=== PATIENT | male | born 1945 | race American Indian/Alaskan Native ===

== ENCOUNTER 2017-08-31 21:23 | Inpatient (IN) | payer MEDICARE ==
[2017-08-31] MEDS ORDERED: NACL 0.9% 1000 ML 1,000 ML IV ONE (22:21)
[2017-08-31 22:23] LABS: Basophils # (Auto) 0.1 K/mm3 (0.0-0.1); Basophils % (Auto) 1.2 % (0.0-1.8); Eosinophils # (Auto) 0.1 K/mm3 (0.0-0.4); Eosinophils % (Auto) 1.3 % (0.0-4.3); Hematocrit 38.3 % (35.5-45.6); Hemoglobin 12.6 gm/dl (11.8-15.2); Lymphocytes # (Auto) 0.3 K/mm3 (1.2-5.4); Lymphocytes % (Auto) 4.9 % (13.4-35.0); Mean Corpuscular HGB Conc 33 % (32-34); Mean Corpuscular Hemoglobin 31 pg (28-32); Mean Corpuscular Volume 94 fl (84-94); Monocytes # (Auto) 0.9 K/mm3 (0.0-0.8); Monocytes % (Auto) 14.4 % (0.0-7.3); Platelet Count 241 K/mm3 (140-440); Red Blood Count 4.08 M/mm3 (3.65-5.03); Red Cell Distribution Width 17.3 % (13.2-15.2)
[2017-08-31 23:28] LABS: Bilirubin,Urine NEG (Negative); Blood,Urine NEG (Negative); Color,Urine Yellow (Yellow); Hyaline Casts,Urine 1 /LPF; Mucus,Urine FEW /HPF
--- NOTE | 2017-08-31 23:28 | XRay Report ---
FINAL REPORT EXAM: XR CHEST 1V AP HISTORY: Low blood pressure, cough. Chemotherapy patient. TECHNIQUE: Single AP portable radiograph of the chest was obtained. PRIORS: Radiographs dated 09/05/2016. FINDINGS: FINDINGS: Device: Left sided 3 lead cardiac pacemaker. Heart: Cardiac size is mildly enlarged. Mediastinum/Vessels: Atherosclerotic vascular disease and aortic tortuosity. Lungs/Pleural space: Lungs are hyperinflated. There are no confluent infiltrates or mass lesions. No pleural effusion. Bony thorax: No acute osseous abnormality. Moderate AC joint and thoracic endplate degenerative changes. IMPRESSION: No acute cardiopulmonary event. Mild enlargement of the cardiac silhouette and atherosclerotic vascular disease.
[2017-08-31 23:54] LABS: Albumin 3.2 g/dL (3.9-5); Calcium 9.4 mg/dL (8.4-10.2)
--- NOTE | 2017-09-01 00:26 | Emergency Department Report ---
HPI - General Chief Complaint: Weakness Time Seen by Provider: 08/31/17 22:21 - HPI HPI: 8-year-old male patient of Dr. Tucker for multiple myeloma, patient of Dr. baugh for CHF EF of 15%, presents to ED with leg swelling, shortness of breath , chest discomfort with ambulation. Symptoms have been worsened since this Sunday 4 days ago accompanied by diaphoresis. He is currently getting an injection weekly for his multiple myeloma, he stated he had to get a lower dose this week due to these symptoms. He states that his heart failure has been worse since starting on this new medication. Patient also stated blood pressure has been running low at home, with numbers 70 over 60s. He is currently chest pain-free but is short of breath when laying down. He is totally unable to lay flat. He is at his. AICD, pacemaker placement. ED Past Medical Hx - Past Medical History Previous Medical History?: Yes Hx Hypertension: Yes Hx Heart Attack/AMI: Yes (Pacemaker and Def inplanted 2016) Hx Congestive Heart Failure: Yes (Ef 15% as per pt) Hx Arthritis: Yes (osteo) Hx Kidney Stones: (Kidney disease stage III) Hx HIV: No Additional medical history: Multiple myeloma,weak heart, Kidney disease stage III, Parathryoid removed. - Surgical History Past Surgical History?: Yes Hx Appendectomy: Yes Additional Surgical History: left knee surgery - Social History Smoking Status: Never Smoker - Medications Home Medications: Home Medications Medication Instructions Recorded Confirmed Last Taken Type Acetaminophen [Tylenol Arthritis] 1,300 mg PO Q12H 09/06/16 09/06/16 Unknown History Allopurinol 200 mg PO BID 09/06/16 09/06/16 Unknown History Aspirin 325 mg PO DAILY 09/06/16 09/06/16 Unknown History Carvedilol 12.5 mg PO BID 09/06/16 09/06/16 Unknown History Clopidogrel 75 mg PO DAILY 09/06/16 09/06/16 Unknown History Gabapentin [Neurontin] 800 mg PO BID 09/06/16 09/06/16 Unknown History Losartan 25 mg PO DAILY 09/06/16 09/06/16 Unknown History Terazosin QHS 09/06/16 Unknown History Torsemide 40 mg PO BID 09/06/16 09/06/16 Unknown History Albuterol Sulfate [Ventolin HFA] 2 puff IH Q4H PRN #1 pump 09/07/16 Unknown Rx Benzonatate [Tessalon Perles] 100 mg PO Q8HR #30 capsule 09/07/16 Unknown Rx Oseltamivir [Tamiflu] 75 mg PO BID #10 cap 09/07/16 Unknown Rx Prednisone [predniSONE 5 mg (6-Day 5 mg PO .TAPER #1 tab.ds.pk 09/07/16 Unknown Rx Pack, 21 Tabs)] ED Review of Systems ROS: Stated complaint: LOW BLOOD PRESSURE Other details as noted in HPI Comment: All other systems reviewed and negative Respiratory: orthopnea, shortness of breath, SOB with exertion Cardiovascular: chest pain, dyspnea on exertion, orthopnea Endocrine: denies: intolerance to cold Physical Exam - Physical Exam Vital Signs: Vital Signs 08/31/17 08/31/17 08/31/17 21:28 21:42 23:14 Temperature 97.8 F 97.8 F Pulse Rate 74 74 79 Respiratory 20 20 18 Rate Blood Pressure 87/58 Blood Pressure 87/58 120/84 [Right] O2 Sat by Pulse 97 97 98 Oximetry 08/31/17 23:15 Temperature Pulse Rate Respiratory 18 Rate Blood Pressure Blood Pressure [Right] O2 Sat by Pulse 98 Oximetry Physical Exam: - Physical Exam Physical Exam: - General Limitations: No Limitations General appearance: alert, in no apparent distress, obese - Head Head exam: Present: atraumatic, normocephalic - Eye Eye exam: Present: normal appearance - ENT ENT exam: Present: mucous membranes moist - Neck Neck exam: Present: normal inspection - Respiratory Respiratory exam: Present: Decreased breath sound bilaterally. Absent: respiratory distress - Cardiovascular Cardiovascular Exam: Present: normal rhythm, tachycardia. Absent: systolic murmur, diastolic murmur, rubs, gallop - GI/Abdominal GI/Abdominal exam: Present: soft, normal bowel sounds - Extremities Exam Extremities exam: Present: Bilateral lower extremity swelling for plus edema - Back Exam Back exam: Present: normal inspection - Neurological Exam Neurological exam: Present: alert, oriented X3 - Psychiatric Psychiatric exam: normal affect and mood - Skin Skin exam: Present: warm, dry, intact, normal color. Absent: rash ED Course Vital Signs 08/31/17 08/31/17 08/31/17 21:28 21:42 23:14 Temperature 97.8 F 97.8 F Pulse Rate 74 74 79 Respiratory 20 20 18 Rate Blood Pressure 87/58 Blood Pressure 87/58 120/84 [Right] O2 Sat by Pulse 97 97 98 Oximetry 08/31/17 23:15 Temperature Pulse Rate Respiratory 18 Rate Blood Pressure Blood Pressure [Right] O2 Sat by Pulse 98 Oximetry - Reevaluation(s) Reevaluation #1: 09/01/17 00:25 Patient requiring oxygen, leg swelling severe, severe shortness of breath, borderline blood pressure, will admit for gentle diuresis. ED Medical Decision Making - Lab Data Result diagrams: 08/31/17 22:04 08/31/17 22:04 - Differential Diagnosis differential diagnoses include pneumonia, ME. Critical care attestation.: If time is entered above; I have spent that time in minutes in the direct care of this critically ill patient, excluding procedure time. ED Disposition Clinical Impression: CHF (congestive heart failure), Chronic systolic CHF (congestive heart failure) Disposition: OP ADMIT IP TO THIS HOSP Is pt being admited?: Yes Does the pt Need Aspirin: No Condition: Stable Referrals: SALEEM SANDOVAL MD [Primary Care Provider] - 3-5 Days
[2017-09-01] MEDS ORDERED: PROAIR IH PRN (02:36)
[2017-09-01] MEDS ORDERED: LASIX IV ONE (02:38)
[2017-09-01] MEDS ORDERED: ACETAMINOPHEN 1300 MG PO SCH (02:45)
--- NOTE | 2017-09-01 02:53 | History and Physical Report ---
History of Present Illness Date of examination: 09/01/17 Date of admission: 09/01/17 00:20 Chief complaint: Bilateral leg swelling History of present illness: 71 year old -[place]ian male with past medical history significant for CHF status post AICD, CKD, multiple myeloma on chemotherapy presented to the emergency department complaining of bilateral leg swelling for the last 3 or 4 days. Patient is also complaining pain on the left calf area. Patient has patient dyspnea. Patient is complaining lower back pain for the last 3-4 days, sharp pain 6 out of 10 in intensity with no radiation, no weakness or numbness in the legs. Patient denied chest pain, fever, chills. The patient is admitted to the floor for the management of bilateral leg swelling, CHF, CKD. REVIEW OF SYSTEMS: GENERAL: no weight change, no fatigue, no fever HEAD: no head ache EYES: no blurry vision, no acute visual loss EARS: no hearing loss, no discharge, no earache NOSE: no stuffiness, no sneezing, no discharge MOUTH, THROAT AND NECK: no bleeding gums, no sore throat, no swollen neck CARDIAC: Stated in the HPI. RESPIRATORY: no shortness of breath, no wheeze, no cough, no sputum, no hemoptysis, no asthma GI: no decreased appetite, no nausea, no vomiting, no dysphagia, no diarrhea, no constipation, no abdominal pain URINARY: no change in frequency, no urgency, no polyuria, no hematuria, no incontinence MUSCULOSKELETAL: Pain in the lower back. NEUROLOGIC: no loss of sensation/numbness, no tingling, no tremors, no weakness/ paralysis HEMATOLOGIC: Multiple myeloma. SKIN: no rashes ENDOCRINE: no heat/cold intolerance, no polyuria, no polydipsia, no thyroid problems PSYCHIATRIC: no anxiety, no depression, no suicidal ideations Past History Past Medical History: heart failure, renal failure, other (multiple myeloma) Past Surgical History: appendectomy, Other (parathyroidectomy) Social history: full code. denies: smoking, alcohol abuse, prescription drug abuse, IV drug use Family history: CAD, cancer Medications and Allergies Allergies Allergy/AdvReac Type Severity Reaction Status Date / Time No Known Allergies Allergy Unverified 02/10/16 16:11 Home Medications Medication Instructions Recorded Confirmed Last Taken Type Acetaminophen [Tylenol Arthritis] 1,300 mg PO Q12H 09/06/16 09/06/16 Unknown History Allopurinol 200 mg PO BID 09/06/16 09/06/16 Unknown History Aspirin 325 mg PO DAILY 09/06/16 09/06/16 Unknown History Carvedilol 12.5 mg PO BID 09/06/16 09/06/16 Unknown History Clopidogrel 75 mg PO DAILY 09/06/16 09/06/16 Unknown History Gabapentin [Neurontin] 800 mg PO BID 09/06/16 09/06/16 Unknown History Losartan 25 mg PO DAILY 09/06/16 09/06/16 Unknown History Terazosin QHS 09/06/16 Unknown History Torsemide 40 mg PO BID 09/06/16 09/06/16 Unknown History Albuterol Sulfate [Ventolin HFA] 2 puff IH Q4H PRN #1 pump 09/07/16 Unknown Rx Benzonatate [Tessalon Perles] 100 mg PO Q8HR #30 capsule 09/07/16 Unknown Rx Oseltamivir [Tamiflu] 75 mg PO BID #10 cap 09/07/16 Unknown Rx Prednisone [predniSONE 5 mg (6-Day 5 mg PO .TAPER #1 tab.ds.pk 09/07/16 Unknown Rx Pack, 21 Tabs)] Active Meds: Active Medications Albuterol (Proair) 2 puff IH Q4H PRN PRN Reason: Shortness Of Breath Furosemide (Lasix) 40 mg IV ONCE ONE Stop: 09/01/17 02:39 Gabapentin (Neurontin) 800 mg PO BID SHUKRI Miscellaneous Medication (Acetaminophen [Tylenol Arthritis]) 1,300 mg PO Q12H SHUKRI Miscellaneous Medication (Allopurinol) 200 mg PO BID SHUKRI Miscellaneous Medication (Aspirin) 325 mg PO DAILY SHUKRI Miscellaneous Medication (Carvedilol) 12.5 mg PO BID SHUKRI Miscellaneous Medication (Clopidogrel) 75 mg PO DAILY SHUKRI Oxycodone/Acetaminophen (Percocet 5/325) 2 tab PO Q6H PRN PRN Reason: Pain, Moderate (4-6) Exam - Physical Exam Narrative exam: Not in cardiopulmonary distress. The patient is obese. Vital signs as documented. Head exam is unremarkable. No scleral icterus . Neck is without jugular venous distension, thyromegaly, or carotid bruits. Lungs are clear to auscultation. Cardiac exam reveals regular rate and Rhythm. First and second heart sounds normal. No murmurs, rubs or gallops. Abdominal exam reveals normal bowel sounds, no masses, no organomegaly and no aortic enlargement. Extremities are +2 pedal and pretibial edema. MANAGER SEMICONDUCTOR: Alert and oriented 3. No focal weakness. - Constitutional Vitals: Temp Pulse Resp BP Pulse Ox 100.1 F H 79 16 121/78 98 09/01/17 00:44 09/01/17 02:00 09/01/17 02:00 09/01/17 02:00 09/01/17 02:00 Results - Labs CBC & Chem 7: 08/31/17 22:04 08/31/17 22:04 Labs: Laboratory Last Values WBC 6.3 K/mm3 (4.5-11.0) 08/31/17 22:04 RBC 4.08 M/mm3 (3.65-5.03) 08/31/17 22:04 Hgb 12.6 gm/dl (11.8-15.2) 08/31/17 22:04 Hct 38.3 % (35.5-45.6) 08/31/17 22:04 MCV 94 fl (84-94) 08/31/17 22:04 MCH 31 pg (28-32) 08/31/17 22:04 MCHC 33 % (32-34) 08/31/17 22:04 RDW 17.3 % (13.2-15.2) H 08/31/17 22:04 Plt Count 241 K/mm3 (140-440) 08/31/17 22:04 Lymph % (Auto) 4.9 % (13.4-35.0) L 08/31/17 22:04 [place] % (Auto) 14.4 % (0.0-7.3) H 08/31/17 22:04 Eos % (Auto) 1.3 % (0.0-4.3) 08/31/17 22:04 Baso % (Auto) 1.2 % (0.0-1.8) 08/31/17 22:04 Lymph # 0.3 K/mm3 (1.2-5.4) L 08/31/17 22:04 [place] # 0.9 K/mm3 (0.0-0.8) H 08/31/17 22:04 Eos # 0.1 K/mm3 (0.0-0.4) 08/31/17 22:04 Baso # 0.1 K/mm3 (0.0-0.1) 08/31/17 22:04 Seg Neutrophils % 78.2 % (40.0-70.0) H 08/31/17 22:04 Seg Neutrophils # 4.9 K/mm3 (1.8-7.7) 08/31/17 22:04 Sodium 138 mmol/L (137-145) 08/31/17 22:04 Potassium 5.2 mmol/L (3.6-5.0) H 08/31/17 22:04 Chloride 97.2 mmol/L (98-107) L 08/31/17 22:04 Carbon Dioxide 23 mmol/L (22-30) 08/31/17 22:04 Anion Gap 23 mmol/L 08/31/17 22:04 BUN 52 mg/dL (9-20) H 08/31/17 22:04 Creatinine 2.7 mg/dL (0.8-1.5) H 08/31/17 22:04 Estimated GFR 28 ml/min 08/31/17 22:04 BUN/Creatinine Ratio 19 % 08/31/17 22:04 Glucose 152 mg/dL (75-100) H 08/31/17 22:04 Calcium 9.4 mg/dL (8.4-10.2) 08/31/17 22:04 Total Bilirubin 0.80 mg/dL (0.1-1.2) 08/31/17 22:04 AST 32 units/L (5-40) 08/31/17 22:04 ALT 31 units/L (7-56) 08/31/17 22:04 Alkaline Phosphatase 81 units/L (35-129) 08/31/17 22:04 Troponin T 0.061 ng/mL (0.00-0.029) H 09/01/17 00:10 NT-Pro-B Natriuret Pep 5787 pg/mL (0-900) H 09/01/17 00:10 Total Protein 6.1 g/dL (6.3-8.2) L 08/31/17 22:04 Albumin 3.2 g/dL (3.9-5) L 08/31/17 22:04 Albumin/Globulin Ratio 1.1 % 08/31/17 22:04 Urine Color Yellow (Yellow) 08/31/17 23:00 Urine Turbidity Clear (Clear) 08/31/17 23:00 Urine pH 5.0 (5.0-7.0) 08/31/17 23:00 Ur Specific [place] 1.015 (1.003-1.030) 08/31/17 23:00 Urine Protein 100 mg/dl mg/dL (Negative) 08/31/17 23:00 Urine Glucose (UA) Neg mg/dL (Negative) 08/31/17 23:00 Urine Ketones Neg mg/dL (Negative) 08/31/17 23:00 Urine Blood Neg (Negative) 08/31/17 23:00 Urine Nitrite Neg (Negative) 08/31/17 23:00 Urine Bilirubin Neg (Negative) 08/31/17 23:00 Urine Urobilinogen 2.0 mg/dL (<2.0) 08/31/17 23:00 Ur Leukocyte Esterase Neg (Negative) 08/31/17 23:00 Urine WBC (Auto) 3.0 /HPF (0.0-6.0) 08/31/17 23:00 Urine RBC (Auto) 2.0 /HPF (0.0-6.0) 08/31/17 23:00 U Epithel Cells (Auto) < 1.0 /HPF (0-13.0) 08/31/17 23:00 Hyaline Casts 1 /LPF 08/31/17 23:00 Urine Mucus Few /HPF 08/31/17 23:00 Assessment and Plan Assessment and plan: Acute on chronic CHF exacerbation - Give a dose of Lasix, continue appropriate home medications, cardiology consulted CKD - Nephrology consulted Multiple myeloma, back pain - Oncology consulted Pain on the left calf - Doppler ultrasound of the left leg ordered DVT prophylaxis - Heparin Disposition - Admit to telemetry floor Advance Directives: Yes VTE prophylaxis?: Chemical Plan of care discussed with patient/family: Yes
[2017-09-01] MEDS ORDERED: PROVENTIL IH PRN (03:40)
[2017-09-01 03:53] LABS: Chol/HDL Ratio 3.77 %
--- NOTE | 2017-09-01 09:42 | Consultation ---
History of Present Illness - History of Present Illness Thank you for the consultation patient was evaluated today. Source of information; patient himself old records were also reviewed History of presenting illness; Patient is a 71-year-old -[place] male who is currently established in our clinic for his chronic kidney disease care but patient has not been very compliant. He currently is suffering from relapsed myeloma for which she was also not seeing her oncologist regularly like he should have and upon my request went back to see Dr. Tucker and was noted to have recurrence of myeloma. Patient is currently being followed by Dr. Tucker and is on therapy for multiple myeloma. He also has history of cardiomyopathy severe with ejection fraction of 15% and is followed by [facility] account support specialist Currently he has severe swelling of both lower extremity, and has gained significant weight, he has prior history of ICD placement with severe cardiomyopathy as well patient was also developing worsening shortness of breath as well as leg swelling over the last 2-3 weeks He is a very poor historian and when asked when has he seen John Pennington his primary care physician patient states that he does not recall past medical history significant for Chronic kidney disease stage III Congestive heart failure Cardiomyopathy Noncompliance Parathyroid adenoma Hypercalcemia Multiple myeloma Chronic edema Chronic dietary noncompliance Current allergies: None Social history: Reviewed from the chart Family history: Reviewed from the chart List of medication: Current and outpatient reviewed Review of system: Positive for worsening shortness of breath bilateral worsening edema of both lower extremity Being treated for myeloma All other review of systems negative Labs and x-rays: Were reviewed from the current chart Physical examination General: No acute distress HEENT: Oral mucosa moist no pharyngeal erythema no pallor or icterus no uremic order Neck: Supple no evidence of any thyromegaly trachea midline no JVD Chest: Clear to auscultation no crackles are also wheezes anteriorly Heart: Regular rate and rhythm S1-S2 heard no S3-S4 Abdomen: Soft nontender no renal bruit no CVA tenderness no suprapubic fullness no organomegaly Extremity: 2-3 plus edema dry skin Neurological: Alert awake follows command grossly nonfocal examination Back: Nontender thoracolumbar spine Musculoskeletal: No joint effusion noted Skin: No petechial rash/noted Assessment and plan Renal failure in a patient who is 71-year-old with underlying chronic creatinine was around 2.3 in August 2016 currently 2.7 likely progression of renal failure over time to follow, patient is noncompliant Check urinalysis, urine for protein and creatinine ratio Mild hyperkalemia 5.2 would not give any form of angiotensin receptor bienvenido or CONNIE inhibitor Severe cardiomyopathy with ejection fraction of 15% History of multiple myeloma currently being followed by Dr. Tucker, currently on the medications to oncology hypotension with severe cardiomyopathy: Patient is at risk for progression of renal failure over time, progression of renal failure due to cardiorenal syndrome could be possible patient does need follow- up in the office upon discharge, Status post ICD placement/ severe cardiomyopathy Multiple comorbidities Worsening shortness of breath leg swelling chest discomfort for the last 5-7 days Renal prognosis guarded to poor No evidence to suggest anemia Patient was adequately counseled and educated regarding multiple renal related issues we'll continue to follow and make recommendation from renal standpoint Nature and severity of renal-related issues were discussed with patient, all questions were answered and simple Beninese Patient does have good understanding about renal-related issues, his renal prognosis is guarded to poor due to severe cardiomyopathy as well as myeloma Counseled and educated to get further education from [employer] and related links, and upon discharge to make a follow-up appointment in the office We'll continue to follow and make recommendations from renal standpoint. If you have any questions please feel free to contact me at [phone] Thank you for the consultation. Past History Past Medical History: heart failure, renal failure, other (multiple myeloma) Past Surgical History: appendectomy, Other (parathyroidectomy) Social history: full code. denies: smoking, alcohol abuse, prescription drug abuse, IV drug use Family history: CAD, cancer Medications and Allergies Allergies Allergy/AdvReac Type Severity Reaction Status Date / Time No Known Allergies Allergy Unverified 02/10/16 16:11 Home Medications Medication Instructions Recorded Confirmed Last Taken Type Acetaminophen [Tylenol Arthritis] 1,300 mg PO Q12H 09/06/16 09/01/17 08/30/17 History Allopurinol 200 mg PO DAILY 09/06/16 09/01/17 08/30/17 History Aspirin 325 mg PO DAILY 09/06/16 09/01/17 08/30/17 History Carvedilol 6.25 mg PO BID 09/06/16 09/01/17 08/30/17 History Gabapentin [Neurontin] 800 mg PO BID 09/06/16 09/01/17 08/30/17 History Terazosin 5 mg PO QHS 09/06/16 09/01/17 08/30/17 History Torsemide 40 mg PO QAM 09/06/16 09/01/17 08/30/17 History Albuterol Sulfate [Ventolin HFA] 2 puff IH Q4H PRN #1 pump 09/07/16 09/01/17 Unknown Rx Active Meds: Active Medications Albuterol (Proventil) 2.5 mg IH Q4HRT PRN PRN Reason: Shortness Of Breath Allopurinol (Zyloprim) 200 mg PO BID SHUKRI Aspirin (Aspirin) 325 mg PO QDAY SHUKRI Carvedilol (Coreg) 12.5 mg PO BID SHUKRI Clopidogrel Bisulfate (Plavix) 75 mg PO QDAY SHUKRI Gabapentin (Neurontin) 800 mg PO BID SHUKRI Heparin Sodium (Porcine) (Heparin) 5,000 unit SUB-Q Q12HR SHUKRI Miscellaneous Medication (Acetaminophen [Tylenol Arthritis]) 1,300 mg PO Q12H SHUKRI Oxycodone/Acetaminophen (Percocet 5/325) 2 tab PO Q6H PRN PRN Reason: Pain, Moderate (4-6) Exam - Vital Signs Vital signs: Vital Signs Temp Pulse Resp BP Pulse Ox 97.8 F 74 20 87/58 97 08/31/17 21:28 08/31/17 21:28 08/31/17 21:28 08/31/17 21:28 08/31/17 21:28 Results - Lab Results 08/31/17 22:04 08/31/17 22:04 Most recent lab results Calcium 9.4 mg/dL (8.4-10.2) 08/31/17 22:04
[2017-09-01] MEDS ORDERED: NON-FORMULARY (Carvedilol 12.5 MG) PO SCH (10:00)
[2017-09-01] MEDS ORDERED: NON-FORMULARY (Clopidogrel 75 MG) PO SCH (10:00)
[2017-09-01] MEDS ORDERED: ALLOPURINOL 200 MG PO SCH (10:00)
[2017-09-01] MEDS ORDERED: NON-FORMULARY (Aspirin 325 MG) PO SCH (10:00)
[2017-09-01] MEDS: ZYLOPRIM PO SCH ×2 (14:35→22:36)
[2017-09-01] MEDS: NEURONTIN PO SCH ×2 (14:36→22:36)
[2017-09-01] MEDS: PLAVIX PO SCH (14:36)
[2017-09-01] MEDS: ASPIRIN PO SCH (14:37)
[2017-09-01] MEDS: COREG PO SCH ×2 (14:37→22:37)
[2017-09-01] MEDS: HEPARIN SUB-Q SCH ×2 (14:38→23:00)
[2017-09-01] MEDS: TYLENOL PO SCH ×2 (14:44→22:37)
--- NOTE | 2017-09-01 17:26 | Event Note ---
I was informed by the RN, Fannie about bilateral LE dvt -heparin drip and coumain ordered -VQ scan to exclude PE -hematology and vascular consults placed for extensive dvt
--- NOTE | 2017-09-01 17:57 | Hem/Onc Progress Note ---
Assessment and Plan - Patient Problems (1) Thrombosis Current Visit: Yes Status: Acute Plan to address problem: Agree with transition to warfarin. Outpatient follow up Subjective Date of service: 09/01/17 Interval history: Patient admitted with DVT. Last took Revlimid 5 weeks ago. Objective - Constitutional Vitals: Last Vital Signs Temp 98.9 F 09/01/17 16:35 Pulse 62 09/01/17 16:35 Resp 18 09/01/17 16:35 BP 100/72 09/01/17 16:35 Pulse Ox 99 09/01/17 16:35 Pain Intensity (0-10): denies any pain General appearance: no acute distress - EENT Eyes: PERRL ENT: hearing intact Lymph node exam: negative cervical - Neck Neck: supple - Respiratory Respiratory effort: Positive: normal - Labs Lab Results: Laboratory Results - last 24 hr 08/31/17 08/31/17 08/31/17 22:04 22:04 23:00 WBC 6.3 RBC 4.08 Hgb 12.6 Hct 38.3 MCV 94 MCH 31 MCHC 33 RDW 17.3 H Plt Count 241 Lymph % (Auto) 4.9 L [place] % (Auto) 14.4 H Eos % (Auto) 1.3 Baso % (Auto) 1.2 Lymph # 0.3 L [place] # 0.9 H Eos # 0.1 Baso # 0.1 Seg Neutrophils % 78.2 H Seg Neutrophils # 4.9 Sodium 138 Potassium 5.2 H Chloride 97.2 L Carbon Dioxide 23 Anion Gap 23 BUN 52 H Creatinine 2.7 H Estimated GFR 28 BUN/Creatinine Ratio 19 Glucose 152 H Calcium 9.4 Total Bilirubin 0.80 AST 32 ALT 31 Alkaline Phosphatase 81 Troponin T NT-Pro-B Natriuret Pep Total Protein 6.1 L Albumin 3.2 L Albumin/Globulin Ratio 1.1 Triglycerides Cholesterol LDL Cholesterol Direct HDL Cholesterol Cholesterol/HDL Ratio Urine Color Yellow Urine Turbidity Clear Urine pH 5.0 Ur Specific [place] 1.015 Urine Protein 100 mg/dl Urine Glucose (UA) Neg Urine Ketones Neg Urine Blood Neg Urine Nitrite Neg Urine Bilirubin Neg Urine Urobilinogen 2.0 Ur Leukocyte Esterase Neg Urine WBC (Auto) 3.0 Urine RBC (Auto) 2.0 U Epithel Cells (Auto) < 1.0 Hyaline Casts 1 Urine Mucus Few 09/01/17 00:10 WBC RBC Hgb Hct MCV MCH MCHC RDW Plt Count Lymph % (Auto) [place] % (Auto) Eos % (Auto) Baso % (Auto) Lymph # [place] # Eos # Baso # Seg Neutrophils % Seg Neutrophils # Sodium Potassium Chloride Carbon Dioxide Anion Gap BUN Creatinine Estimated GFR BUN/Creatinine Ratio Glucose Calcium Total Bilirubin AST ALT Alkaline Phosphatase Troponin T 0.061 H NT-Pro-B Natriuret Pep 5787 H Total Protein Albumin Albumin/Globulin Ratio Triglycerides 148 Cholesterol 170 LDL Cholesterol Direct 97 HDL Cholesterol 45 Cholesterol/HDL Ratio 3.77 Urine Color Urine Turbidity Urine pH Ur Specific [place] Urine Protein Urine Glucose (UA) Urine Ketones Urine Blood Urine Nitrite Urine Bilirubin Urine Urobilinogen Ur Leukocyte Esterase Urine WBC (Auto) Urine RBC (Auto) U Epithel Cells (Auto) Hyaline Casts Urine Mucus
[2017-09-01] MEDS: HEPARIN/ 0.45% NACL-25,000 UNIT/500 ML 25,000 UNIT/500 ML BAG IV SCH (18:10)
[2017-09-01 18:18] LABS: INR 1.13 (0.87-1.13)
[2017-09-01 18:25] LABS: Partial Thromboplastin Time 33.9 Sec. (24.2-36.6)
[2017-09-01] MEDS: COUMADIN PO SCH (20:26)
[2017-09-01 22:00] LABS: Calcium 9.1 mg/dL (8.4-10.2)
[2017-09-02] MEDS ORDERED: HEPARIN 10,000 UNITS/10 ML IV ONE (03:11)
[2017-09-02] MEDS: PERCOCET 5/325 PO PRN ×2 (06:34→21:46)
--- NOTE | 2017-09-02 09:23 | XRay Report ---
FINAL REPORT PROCEDURE: XR CHEST 1V AP portable 07:59 a.m. TECHNIQUE: Chest radiograph anteroposterior view. CPT 87863 HISTORY: for lung scan cough low blood pressure chest pain fever wheezing COMPARISON: 08/31/2017 FINDINGS: The heart is mildly enlarged and stable. Possible hilar adenopathy with nodular fullness in the AP window. Suspect COPD with no joe airspace process or effusion. Cardiac pacer device left upper chest with leads in the right atrium and ostensibly right ventricle. Lower heart border excluded from the study IMPRESSION: Shallow inspiration with suspected COPD cardiomegaly pacer device and without joe airspace process or effusion on limited frontal view.
[2017-09-02 09:25] LABS: Basophils # (Auto) 0.1 K/mm3 (0.0-0.1); Basophils % (Auto) 1.7 % (0.0-1.8); Eosinophils # (Auto) 0.1 K/mm3 (0.0-0.4); Eosinophils % (Auto) 2.6 % (0.0-4.3); Hematocrit 35.1 % (35.5-45.6); Hemoglobin 11.4 gm/dl (11.8-15.2); Lymphocytes # (Auto) 0.5 K/mm3 (1.2-5.4); Lymphocytes % (Auto) 8.2 % (13.4-35.0); Mean Corpuscular HGB Conc 32 % (32-34); Mean Corpuscular Hemoglobin 30 pg (28-32); Mean Corpuscular Volume 93 fl (84-94); Monocytes # (Auto) 0.8 K/mm3 (0.0-0.8); Monocytes % (Auto) 13.9 % (0.0-7.3); Platelet Count 289 K/mm3 (140-440); Red Blood Count 3.76 M/mm3 (3.65-5.03); Red Cell Distribution Width 17.1 % (13.2-15.2)
[2017-09-02 09:36] LABS: INR 1.21 (0.87-1.13)
[2017-09-02 09:40] LABS: Calcium 9.2 mg/dL (8.4-10.2)
--- NOTE | 2017-09-02 10:16 | Progress Note ---
Subjective Interval history: Patient was seen today for follow-up on multiple renal related issues, he is still continues to have bilateral swelling of both lower extremity worried about his renal function which has been progressively declining Patient has no complaints of any chest pain pressure but does complain of mild shortness of breath which is not new Vitals labs intake output medications were reviewed Social history: Reviewed Allergies: Reviewed Family history: Reviewed Physical examination HEENT: Oral mucosa moist no pallor or icterus Neck: Supple no JVD Chest: Clear to auscultation anteriorly CVS: Regular rate and rhythm S1 and S2 heard Abdomen: Soft nontender no suprapubic masses no organomegaly appreciable Extremity: Dry skin less than 2-3+ peripheral edema, with tenderness in the leg Musculoskeletal: No joint effusion noted in knees and ankle Neurological: Alert awake Dermatology: No petechial rashes Psychiatry: No evidence of any agitation and aggression noted Assessment and plan Chronic kidney disease: Progressing/worsening etiology appears to be multi- factorial in his case Congestive heart failure: Severe cardiomyopathy known to cardiorenal syndrome and progressive decline in renal function Bilateral lower expected DVT currently being followed by vascular hematology oncology Myeloma: Relapsed patient did not follow-up with oncology like he should have, and made an appointment with Dr. Tucker only after I requested him to be seen, he is aware that his overall prognosis is guarded at this time was treated with Revlimid as well as Velcade in outpatient setting I believe some of the decline in renal function is also resulting from myeloma relapsing, and the treatment would be to treat the myeloma Severe cardiomyopathy being [facility] not a candidate for CONNIE inhibitors angiotensin receptor bienvenido with worsening renal function Noncompliant patient: Patient's long-term prognosis is guarded to poor high risk for progression of renal failure over time patient is aware Renal care plan was discussed with patient he will need a 24-hour urinary study Patient was adequately counseled and educated regarding multiple renal related issues Pertinent lab findings were discussed with patient, patient does exhibit good understanding of renal issues We'll continue to follow and make recommendation from renal standpoint Objective - Vital Signs Vital signs: Vital Signs - 12hr 09/01/17 09/02/17 09/02/17 22:00 00:10 00:34 Temperature 98.2 F Pulse Rate 67 63 Respiratory 16 18 Rate Blood Pressure 86/55 Blood Pressure 86/55 [Right] O2 Sat by Pulse 97 95 Oximetry 0309/02/17 09/02/17 01:00 03:55 04:51 Temperature 97.6 F Pulse Rate 79 73 72 Respiratory 18 Rate Blood Pressure 106/73 Blood Pressure 106/73 [Right] O2 Sat by Pulse 95 97 Oximetry 09/02/17 09/02/17 08:10 08:11 Temperature 98.7 F Pulse Rate 74 75 Respiratory 18 Rate Blood Pressure 109/74 Blood Pressure [Right] O2 Sat by Pulse 95 90 Oximetry - Lab 09/03/17 04:24 09/02/17 09:09 Most recent lab results Calcium 9.2 mg/dL (8.4-10.2) 09/02/17 09:09
--- NOTE | 2017-09-02 10:44 | Consultation ---
History of Present Illness - Reason for Consult Consult date: 09/02/17 BLE DVT - History of Present Illness Patient with a history of CHF with an ejection fraction of 15% who presented with hypotension. He was found to have bilateral lower extremity DVTs. Patient had a prior episode of DVT on the right in 2007 and he believes that a IVC filter was placed at that time. At that time, the patient was on Coumadin for "1-2 years" and this was discontinued some time ago. His legs are swollen although soft. Past History Past Medical History: DVT, heart failure, renal failure, other (multiple myeloma ) Past Surgical History: appendectomy, Other (parathyroidectomy) Social history: full code. denies: smoking, alcohol abuse, prescription drug abuse, IV drug use Family history: CAD, cancer Medications and Allergies Allergies Allergy/AdvReac Type Severity Reaction Status Date / Time No Known Allergies Allergy Unverified 02/10/16 16:11 Home Medications Medication Instructions Recorded Confirmed Last Taken Type Acetaminophen [Tylenol Arthritis] 1,300 mg PO Q12H 09/06/16 09/02/17 08/30/17 History Allopurinol 200 mg PO DAILY 09/06/16 09/02/17 08/30/17 History Aspirin 325 mg PO DAILY 09/06/16 09/02/17 08/30/17 History Carvedilol 6.25 mg PO BID 09/06/16 09/02/17 08/30/17 History Gabapentin [Neurontin] 800 mg PO BID 09/06/16 09/02/17 08/30/17 History Terazosin 5 mg PO QHS 09/06/16 09/02/17 08/30/17 History Torsemide 40 mg PO QAM 09/06/16 09/02/17 08/30/17 History Albuterol Sulfate [Ventolin HFA] 2 puff IH Q4H PRN #1 pump 09/07/16 09/02/17 Unknown Rx Active Meds: Active Medications Acetaminophen (Tylenol) 1,000 mg PO BID [facility] Last Admin: 09/01/17 22:37 Dose: 1,000 mg Albuterol (Proventil) 2.5 mg IH Q4HRT PRN PRN Reason: Shortness Of Breath Allopurinol (Zyloprim) 200 mg PO BID [facility] Last Admin: 09/01/17 22:36 Dose: 200 mg Aspirin (Aspirin) 325 mg PO QDAY [facility] Last Admin: 09/01/17 14:37 Dose: 325 mg Carvedilol (Coreg) 12.5 mg PO BID [facility] Last Admin: 09/01/17 22:37 Dose: 12.5 mg Clopidogrel Bisulfate (Plavix) 75 mg PO QDAY [facility] Last Admin: 09/01/17 14:36 Dose: 75 mg Gabapentin (Neurontin) 800 mg PO BID [facility] Last Admin: 09/01/17 22:36 Dose: 800 mg Heparin Sodium/Sodium Chloride (Heparin/ 0.45% Nacl-25,000 Unit/500 Ml) 25,000 unit in 500 mls @ 30 mls/hr IV TITR [facility]; Protocol Last Titration: 09/02/17 03:10 Dose: 1,850 units/hr, 37 mls/hr Oxycodone/Acetaminophen (Percocet 5/325) 2 tab PO Q6H PRN PRN Reason: Pain, Moderate (4-6) Last Admin: 09/02/17 06:34 Dose: 2 tab Warfarin Sodium (Coumadin) 7.5 mg PO DAILY@1700 [facility] Last Admin: 09/01/17 20:26 Dose: 7.5 mg Review of Systems All systems: negative Exam - Constitutional Vitals: Temp Pulse Resp BP Pulse Ox 98.7 F 75 18 109/74 90 09/02/17 08:10 09/02/17 08:11 09/02/17 08:10 09/02/17 08:10 09/02/17 08:11 General appearance: Present: no acute distress, obese - EENT Eyes: Present: PERRL ENT: hearing intact - Neck Neck: Present: supple, normal ROM - Respiratory Respiratory effort: normal - Extremities Extremities: no ischemia Extremity abnormal: edema - Abdominal General gastrointestinal: Present: deferred Male genitourinary: Present: deferred - Rectal Rectal Exam: deferred - Psychiatric Psychiatric: appropriate mood/affect, cooperative - Neurologic Neurologic: no focal deficits Results - Labs CBC & Chem 7: 09/02/17 09:09 09/02/17 09:09 Labs: Abnormal lab results 09/01/17 09/01/17 09/02/17 Range/Units 17:43 21:24 00:18 Hgb (11.8-15.2) gm/dl Hct (35.5-45.6) % RDW (13.2-15.2) % Lymph % (Auto) (13.4-35.0) % [place] % (Auto) (0.0-7.3) % Lymph # (1.2-5.4) K/mm3 Seg Neutrophils % (40.0-70.0) % PT 15.1 H (12.2-14.9) Sec. INR (0.87-1.13) Heparin Anti-Xa Level < 0.10 L (0.3-0.7) U.I./ml Sodium 134 L (137-145) mmol/L Chloride 94.5 L (98-107) mmol/L BUN 52 H (9-20) mg/dL Creatinine 2.7 H (0.8-1.5) mg/dL Glucose 137 H (75-100) mg/dL 09/02/17 09/02/17 09/02/17 Range/Units 09:09 09:09 09:09 Hgb 11.4 L (11.8-15.2) gm/dl Hct 35.1 L (35.5-45.6) % RDW 17.1 H (13.2-15.2) % Lymph % (Auto) 8.2 L (13.4-35.0) % [place] % (Auto) 13.9 H (0.0-7.3) % Lymph # 0.5 L (1.2-5.4) K/mm3 Seg Neutrophils % 73.6 H (40.0-70.0) % PT 16.0 H (12.2-14.9) Sec. INR 1.21 H (0.87-1.13) Heparin Anti-Xa Level (0.3-0.7) U.I./ml Sodium 134 L (137-145) mmol/L Chloride 96.4 L (98-107) mmol/L BUN 54 H (9-20) mg/dL Creatinine 2.8 H (0.8-1.5) mg/dL Glucose 134 H (75-100) mg/dL - Imaging and Cardiology Venous US: report reviewed Assessment and Plan Patient with history of bilateral lower extremity DVT. Will obtain an abdominal ultrasound to determine if the patient has a IVC filter. Would continue anticoagulation for life. Patient will be placed in LORENE hose as well.
[2017-09-02] MEDS: TYLENOL PO SCH ×2 (10:55→21:48)
[2017-09-02] MEDS: PLAVIX PO SCH (10:55)
[2017-09-02] MEDS: ASPIRIN PO SCH (10:55)
[2017-09-02] MEDS: COREG PO SCH ×2 (10:55→21:47)
[2017-09-02] MEDS: ZYLOPRIM PO SCH ×2 (10:55→21:46)
[2017-09-02] MEDS: NEURONTIN PO SCH ×2 (10:55→21:46)
[2017-09-02] MEDS: HEPARIN/ 0.45% NACL-25,000 UNIT/500 ML 25,000 UNIT/500 ML BAG IV SCH (11:15)
--- NOTE | 2017-09-02 11:24 | XRay Report ---
AP ABDOMEN: HISTORY: Bilateral lower extremity DVT, evaluate for presence of IVC filter. The abdominal gas pattern is unremarkable. No masses or organomegaly is identified and there is no gross evidence of free air or fluid. No significant soft tissue calcifications are noted. An IVC filter is identified at the L2-3 level. IMPRESSION: Unremarkable abdomen. IVC filter as described.
--- NOTE | 2017-09-02 12:29 | Nuclear Medicine Report ---
LUNG SCAN, VENTILATION AND PERFUSION: History: Shortness of breath, DVT. Technique: 5mci of Tc99m MAA was infused for the perfusion images. 15mci XE 133 gas was inhaled for the ventilatory images. Correlation is made with a chest x-ray dated 09/02/17. Findings: Inhalation of Xenon gas demonstrates a normal distribution of the activity throughout both lungs. The wash out phases show no focal retention of activity. After injection of Technetium 99m macroaggregated albumin gamma camera imaging of the lungs in multiple projections demonstrates normal pulmonary contours with a homogeneous distribution of activity. No focal areas of perfusion deficiency are identified. IMPRESSION: Low probability for pulmonary embolus.
--- NOTE | 2017-09-02 13:02 | Cat Scan Report ---
CT CHEST WITHOUT CONTRAST: HISTORY: Shortness of breath, bilateral DVT, concern for malignancy. COMPARISON: none. TECHNIQUE: Helical CT in 1.25mm intervals without IV contrast. Sagittal and coronal reformatted images. FINDINGS: Thyroid gland: Normal. Tracheobronchial tree: Normal. Esophagus: Normal. Heart: Within normal limits. 2-lead cardiac pacemaker is in place. Pericardium: Normal. Mediastinum: Normal. Lung [place]: Normal. Pleural Spaces: Normal. Musculoskeletal: Normal. IMPRESSION: Unremarkable CT chest without contrast. No evidence for an acute process or neoplasm/metastatic disease.
--- NOTE | 2017-09-02 13:14 | Cat Scan Report ---
CT ABDOMEN PELVIS WITHOUT CONTRAST: HISTORY: Concern for malignancy, shortness of breath, bilateral DVT. COMPARISON: none. TECHNIQUE: Helical CT in 1.25mm intervals without IV contrast. Sagittal and coronal reconstructions. FINDINGS: Lung bases: Normal. Liver: Normal. Biliary system: Normal. Pancreas: Normal. Spleen: Normal. Kidneys/ureters/bladder: 3 cm cyst at the superior pole the right kidney is noted. No evidence for nephrolithiasis or obvious mass. The ureters are normal course and caliber. The bladder is partially empty with no gross abnormality. The prostate gland is mildly enlarged measuring 5.5 cm in diameter. Adrenal glands: Both adrenal glands are mildly thickened without discrete nodule. This may represent hyperplasia. Aorta: Normal. An IVC filter is in place at the L2-3 level. No obvious venous thrombosis in the visualized pelvic veins and IVC. Intestines: No oral contrast was administered which limits this exam. Diffuse diverticulosis of the colon is evident. There is no evidence for obstruction, focal inflammation or large mass. Appendix: Not confidently identified. Pelvic viscera: Normal. Ascites: There is trace ascites in both sides of the pelvis. No abscess. Adenopathy: None. Musculoskeletal: Within normal limits. Mild degenerative changes are noted. IMPRESSION: No evidence for metastatic disease or neoplastic process on noncontrast CT. Diffuse diverticulosis of the colon. Trace ascites. Mild prostatic enlargement. Right renal cyst.
--- NOTE | 2017-09-02 15:58 | Progress Note ---
Assessment and Plan Assessment and plan: 71 year old -[place] male with past medical history significant for CHF status post AICD, CKD, multiple myeloma on chemotherapy presented to the emergency department complaining of bilateral leg swelling for the last 3 or 4 days. he has previous hx of DVT in past and claims ivc filter was placed years ago Bilateral LE DVT -continue heparin drip and warfarin -will discuss the best choice of anticoagulant with hematology given malignancy and CKD -VQ svan negative, vascular surgery input appreciated, will check for IVC filter by US -will need lifelong anticoagulation Acute on chronic CHF exacerbation -currently appears euvolemic, received diuresis already CKD - Nephrology consulted, creatinine stable Multiple myeloma, and Prostate ca - Oncology consulted -on outpatient chemo CT chest, abdomen and pelvis does not reveal any other masses History Interval history: C/o BIlateral LE edema which is painful #Review of systems Constitutional: No fevers, no malaise, no joint pains CVS: No chest pain, no orthopnea, no dyspnea on exertion, no pedal edema GI: No abdominal pain, no diarrhea, no vomiting, no constipation Respiratory: No shortness of breath, no wheezing, no coughing Hospitalist Physical - Physical exam Narrative exam: General.: Appears well, no distress, nontoxic HEENT: Moist mucous membranes, extraocular muscles intact, no lymphadenopathy Neck: supple Cardiac: S1-S2 heard Lungs: clear to auscultation bilaterally Abdomen: soft , nontender, nondistended, bowel sounds positive Extremities: 3 plus bilateral LE edema Skin: no rash or lesions Neurologic: no gross focal deficits Psych: appropriate behavior, appropriate mood, corporative, judgment intact - Constitutional Vitals: Temp Pulse Resp BP Pulse Ox 98.7 F 75 18 109/74 90 09/02/17 08:10 09/02/17 08:11 09/02/17 08:10 09/02/17 08:10 09/02/17 08:11 General appearance: Present: no acute distress, obese Results - Labs CBC & Chem 7: 09/02/17 09:09 09/02/17 09:09 Labs: Laboratory Last Values WBC 5.5 K/mm3 (4.5-11.0) 09/02/17 09:09 RBC 3.76 M/mm3 (3.65-5.03) 09/02/17 09:09 Hgb 11.4 gm/dl (11.8-15.2) L 09/02/17 09:09 Hct 35.1 % (35.5-45.6) L 09/02/17 09:09 MCV 93 fl (84-94) 09/02/17 09:09 MCH 30 pg (28-32) 09/02/17 09:09 MCHC 32 % (32-34) 09/02/17 09:09 RDW 17.1 % (13.2-15.2) H 09/02/17 09:09 Plt Count 289 K/mm3 (140-440) 09/02/17 09:09 Lymph % (Auto) 8.2 % (13.4-35.0) L 09/02/17 09:09 [place] % (Auto) 13.9 % (0.0-7.3) H 09/02/17 09:09 Eos % (Auto) 2.6 % (0.0-4.3) 09/02/17 09:09 Baso % (Auto) 1.7 % (0.0-1.8) 09/02/17 09:09 Lymph # 0.5 K/mm3 (1.2-5.4) L 09/02/17 09:09 [place] # 0.8 K/mm3 (0.0-0.8) 09/02/17 09:09 Eos # 0.1 K/mm3 (0.0-0.4) 09/02/17 09:09 Baso # 0.1 K/mm3 (0.0-0.1) 09/02/17 09:09 Seg Neutrophils % 73.6 % (40.0-70.0) H 09/02/17 09:09 Seg Neutrophils # 4.1 K/mm3 (1.8-7.7) 09/02/17 09:09 PT 16.0 Sec. (12.2-14.9) H 09/02/17 09:09 INR 1.21 (0.87-1.13) H 09/02/17 09:09 APTT 33.9 Sec. (24.2-36.6) 09/01/17 17:43 Heparin Anti-Xa Level 0.60 U.I./ml (0.3-0.7) 09/02/17 09:09 Sodium 134 mmol/L (137-145) L 09/02/17 09:09 Potassium 4.7 mmol/L (3.6-5.0) 09/02/17 09:09 Chloride 96.4 mmol/L (98-107) L 09/02/17 09:09 Carbon Dioxide 25 mmol/L (22-30) 09/02/17 09:09 Anion Gap 17 mmol/L 09/02/17 09:09 BUN 54 mg/dL (9-20) H 09/02/17 09:09 Creatinine 2.8 mg/dL (0.8-1.5) H 09/02/17 09:09 Estimated GFR 27 ml/min 09/02/17 09:09 BUN/Creatinine Ratio 19 % 09/02/17 09:09 Glucose 134 mg/dL (75-100) H 09/02/17 09:09 Calcium 9.2 mg/dL (8.4-10.2) 09/02/17 09:09 Total Bilirubin 0.80 mg/dL (0.1-1.2) 08/31/17 22:04 AST 32 units/L (5-40) 08/31/17 22:04 ALT 31 units/L (7-56) 08/31/17 22:04 Alkaline Phosphatase 81 units/L (35-129) 08/31/17 22:04 Troponin T 0.061 ng/mL (0.00-0.029) H 09/01/17 00:10 NT-Pro-B Natriuret Pep 5787 pg/mL (0-900) H 09/01/17 00:10 Total Protein 6.1 g/dL (6.3-8.2) L 08/31/17 22:04 Albumin 3.2 g/dL (3.9-5) L 08/31/17 22:04 Albumin/Globulin Ratio 1.1 % 08/31/17 22:04 Triglycerides 148 mg/dL (2-149) 09/01/17 00:10 Cholesterol 170 mg/dL (50-199) 09/01/17 00:10 LDL Cholesterol Direct 97 mg/dL (50-130) 09/01/17 00:10 HDL Cholesterol 45 mg/dL (40-59) 09/01/17 00:10 Cholesterol/HDL Ratio 3.77 % 09/01/17 00:10 Urine Color Yellow (Yellow) 08/31/17 23:00 Urine Turbidity Clear (Clear) 08/31/17 23:00 Urine pH 5.0 (5.0-7.0) 08/31/17 23:00 Ur Specific [place] 1.015 (1.003-1.030) 08/31/17 23:00 Urine Protein 100 mg/dl mg/dL (Negative) 08/31/17 23:00 Urine Glucose (UA) Neg mg/dL (Negative) 08/31/17 23:00 Urine Ketones Neg mg/dL (Negative) 08/31/17 23:00 Urine Blood Neg (Negative) 08/31/17 23:00 Urine Nitrite Neg (Negative) 08/31/17 23:00 Urine Bilirubin Neg (Negative) 08/31/17 23:00 Urine Urobilinogen 2.0 mg/dL (<2.0) 08/31/17 23:00 Ur Leukocyte Esterase Neg (Negative) 08/31/17 23:00 Urine WBC (Auto) 3.0 /HPF (0.0-6.0) 08/31/17 23:00 Urine RBC (Auto) 2.0 /HPF (0.0-6.0) 08/31/17 23:00 U Epithel Cells (Auto) < 1.0 /HPF (0-13.0) 08/31/17 23:00 Hyaline Casts 1 /LPF 08/31/17 23:00 Urine Mucus Few /HPF 08/31/17 23:00
[2017-09-02] MEDS: COUMADIN PO SCH (17:46)
--- NOTE | 2017-09-02 19:41 | Progress Note ---
Assessment and Plan patient was admitted with bilateral leg swelling and was diagnosed have bilateral deep vein thrombosis, lung scan showed low property per pulmonary embolism. Presently on heparin, being changed to warfarin. Patient has history of DVT in 2007, percent of IVC filter insertion. Continue present treatment. history of multiple myeloma, on treatment with Dr. Tucker. - Patient Problems (1) Chronic systolic CHF (congestive heart failure) Current Visit: Yes Status: Chronic (2) Hypertension Current Visit: No Status: Acute (3) CKD (chronic kidney disease) stage 3, GFR 30-59 ml/min Current Visit: No Status: Chronic Subjective Date of service: 09/02/17 Interval history: patient admitted with bilateral leg swelling, apparently started after giving chemotherapy. Evaluation showed bilateral lower extremity deep vein thrombosis. Objective Vital Signs Temp Pulse Resp BP BP Pulse Ox 09/02/17 08:11 75 90 09/02/17 08:10 98.7 F 74 18 109/74 95 09/02/17 04:51 97.6 F 72 18 106/73 97 09/02/17 03:55 73 106/73 95 09/02/17 01:00 79 09/02/17 00:34 98.2 F 63 18 86/55 95 09/02/17 00:10 67 86/55 97 09/01/17 22:00 16 09/01/17 20:30 98.9 F 71 97 H 116/78 97 09/01/17 20:15 73 116/78 95 - Physical Examination General: No Apparent Distress HEENT: Positive: PERRL Neck: Positive: trachea midline Cardiac: Positive: Reg Rate and Rhythm Lungs: Positive: Decreased Breath Sounds Neuro: Positive: Grossly Intact Abdomen: Positive: Unremarkable Extremities: Present: +3 Edema - Labs and Meds Coagulation 09/02/17 Range/Units 09:09 PT 16.0 H (12.2-14.9) Sec. INR 1.21 H (0.87-1.13) CBC 09/02/17 Range/Units 09:09 WBC 5.5 (4.5-11.0) K/mm3 RBC 3.76 (3.65-5.03) M/mm3 Hgb 11.4 L (11.8-15.2) gm/dl Hct 35.1 L (35.5-45.6) % Plt Count 289 (140-440) K/mm3 Lymph # 0.5 L (1.2-5.4) K/mm3 [place] # 0.8 (0.0-0.8) K/mm3 Eos # 0.1 (0.0-0.4) K/mm3 Baso # 0.1 (0.0-0.1) K/mm3 Comprehensive Metabolic Panel 09/01/17 09/02/17 Range/Units 21:24 09:09 Sodium 134 L 134 L (137-145) mmol/L Potassium 4.6 4.7 (3.6-5.0) mmol/L Chloride 94.5 L 96.4 L (98-107) mmol/L Carbon Dioxide 24 25 (22-30) mmol/L BUN 52 H 54 H (9-20) mg/dL Creatinine 2.7 H 2.8 H (0.8-1.5) mg/dL Glucose 137 H 134 H (75-100) mg/dL Calcium 9.1 9.2 (8.4-10.2) mg/dL
[2017-09-02] MEDS: MINIPRESS PO SCH (21:48)
[2017-09-02] MEDS ORDERED: NON-FORMULARY (Terazosin 5 MG) PO SCH (22:00)
[2017-09-03] MEDS: HEPARIN/ 0.45% NACL-25,000 UNIT/500 ML 25,000 UNIT/500 ML BAG IV SCH ×3 (03:34→20:51)
[2017-09-03 05:55] LABS: Hematocrit 33.9 % (35.5-45.6); Hemoglobin 11.3 gm/dl (11.8-15.2)
[2017-09-03 05:59] LABS: INR 1.2 (0.87-1.13)
[2017-09-03 06:01] LABS: Heparin anti-factor XA 0.18 U.I./ml (0.3-0.7)
--- NOTE | 2017-09-03 07:19 | Progress Note ---
Hospitalist Physical - Constitutional Vitals: Temp Pulse Resp BP Pulse Ox 98.0 F 47 L 18 109/74 95 09/03/17 03:46 09/03/17 03:46 09/03/17 03:46 09/03/17 03:46 09/03/17 03:46 General appearance: Present: no acute distress, obese Results - Labs CBC & Chem 7: 09/03/17 04:24 09/02/17 09:09 Labs: Laboratory Last Values WBC 5.5 K/mm3 (4.5-11.0) 09/02/17 09:09 RBC 3.76 M/mm3 (3.65-5.03) 09/02/17 09:09 Hgb 11.3 gm/dl (11.8-15.2) L 09/03/17 04:24 Hct 33.9 % (35.5-45.6) L 09/03/17 04:24 MCV 93 fl (84-94) 09/02/17 09:09 MCH 30 pg (28-32) 09/02/17 09:09 MCHC 32 % (32-34) 09/02/17 09:09 RDW 17.1 % (13.2-15.2) H 09/02/17 09:09 Plt Count 298 K/mm3 (140-440) 09/03/17 04:24 Lymph % (Auto) 8.2 % (13.4-35.0) L 09/02/17 09:09 [place] % (Auto) 13.9 % (0.0-7.3) H 09/02/17 09:09 Eos % (Auto) 2.6 % (0.0-4.3) 09/02/17 09:09 Baso % (Auto) 1.7 % (0.0-1.8) 09/02/17 09:09 Lymph # 0.5 K/mm3 (1.2-5.4) L 09/02/17 09:09 [place] # 0.8 K/mm3 (0.0-0.8) 09/02/17 09:09 Eos # 0.1 K/mm3 (0.0-0.4) 09/02/17 09:09 Baso # 0.1 K/mm3 (0.0-0.1) 03/11/18 09:09 Seg Neutrophils % 73.6 % (40.0-70.0) H 09/02/17 09:09 Seg Neutrophils # 4.1 K/mm3 (1.8-7.7) 09/02/17 09:09 PT 15.9 Sec. (12.2-14.9) H 09/03/17 04:28 INR 1.20 (0.87-1.13) H 09/03/17 04:28 APTT 33.9 Sec. (24.2-36.6) 09/01/17 17:43 Heparin Anti-Xa Level 0.18 U.I./ml (0.3-0.7) L 09/03/17 04:28 Sodium 134 mmol/L (137-145) L 09/02/17 09:09 Potassium 4.7 mmol/L (3.6-5.0) 09/02/17 09:09 Chloride 96.4 mmol/L (98-107) L 09/02/17 09:09 Carbon Dioxide 25 mmol/L (22-30) 09/02/17 09:09 Anion Gap 17 mmol/L 09/02/17 09:09 BUN 54 mg/dL (9-20) H 09/02/17 09:09 Creatinine 2.8 mg/dL (0.8-1.5) H 09/02/17 09:09 Estimated GFR 27 ml/min 09/02/17 09:09 BUN/Creatinine Ratio 19 % 09/02/17 09:09 Glucose 134 mg/dL (75-100) H 09/02/17 09:09 Calcium 9.2 mg/dL (8.4-10.2) 09/02/17 09:09 Total Bilirubin 0.80 mg/dL (0.1-1.2) 08/31/17 22:04 AST 32 units/L (5-40) 08/31/17 22:04 ALT 31 units/L (7-56) 08/31/17 22:04 Alkaline Phosphatase 81 units/L (35-129) 08/31/17 22:04 Troponin T 0.061 ng/mL (0.00-0.029) H 09/01/17 00:10 NT-Pro-B Natriuret Pep 5787 pg/mL (0-900) H 09/01/17 00:10 Total Protein 6.1 g/dL (6.3-8.2) L 08/31/17 22:04 Albumin 3.2 g/dL (3.9-5) L 08/31/17 22:04 Albumin/Globulin Ratio 1.1 % 08/31/17 22:04 Triglycerides 148 mg/dL (2-149) 09/01/17 00:10 Cholesterol 170 mg/dL (50-199) 09/01/17 00:10 LDL Cholesterol Direct 97 mg/dL (50-130) 09/01/17 00:10 HDL Cholesterol 45 mg/dL (40-59) 09/01/17 00:10 Cholesterol/HDL Ratio 3.77 % 09/01/17 00:10 Urine Color Yellow (Yellow) 08/31/17 23:00 Urine Turbidity Clear (Clear) 08/31/17 23:00 Urine pH 5.0 (5.0-7.0) 08/31/17 23:00 Ur Specific [place] 1.015 (1.003-1.030) 08/31/17 23:00 Urine Protein 100 mg/dl mg/dL (Negative) 08/31/17 23:00 Urine Glucose (UA) Neg mg/dL (Negative) 08/31/17 23:00 Urine Ketones Neg mg/dL (Negative) 08/31/17 23:00 Urine Blood Neg (Negative) 08/31/17 23:00 Urine Nitrite Neg (Negative) 08/31/17 23:00 Urine Bilirubin Neg (Negative) 08/31/17 23:00 Urine Urobilinogen 2.0 mg/dL (<2.0) 08/31/17 23:00 Ur Leukocyte Esterase Neg (Negative) 08/31/17 23:00 Urine WBC (Auto) 3.0 /HPF (0.0-6.0) 08/31/17 23:00 Urine RBC (Auto) 2.0 /HPF (0.0-6.0) 08/31/17 23:00 U Epithel Cells (Auto) < 1.0 /HPF (0-13.0) 08/31/17 23:00 Hyaline Casts 1 /LPF 08/31/17 23:00 Urine Mucus Few /HPF 08/31/17 23:00
--- NOTE | 2017-09-03 09:33 | Hem/Onc Progress Note ---
Assessment and Plan Continue heparin and Coumadin until INR therapeutic. We will order abdominal x- ray to see the location of IVC filter. The IVC seems to be patent although good bit of abdominal gas me preclude best exam Subjective Date of service: 09/03/17 Interval history: Patient admitted with DVTs. History of DVT in the past. Currently on therapy for multiple myeloma in the form of Revlimid and Velcade and dexamethasone. Now on heparin and Coumadin Objective - Constitutional Vitals: Last Vital Signs Temp 97.8 F 09/03/17 08:24 Pulse 76 09/03/17 08:24 Resp 20 09/03/17 08:24 BP 112/66 09/03/17 08:24 Pulse Ox 98 09/03/17 08:24 General appearance: mild distress Performance status: 4-completely disabled - Neck Neck: supple - Respiratory Respiratory effort: Positive: normal Respiratory: bilateral: diminished - Cardiovascular Rhythm: regular Extremity abnormal: edema (bi lateral) - Gastrointestinal General gastrointestinal: Present: soft - Labs Lab Results: Laboratory Results - last 24 hr 09/02/17 09/02/17 09/02/17 09:09 09:09 09:09 Hgb Hct Plt Count PT 16.0 H INR 1.21 H Heparin Anti-Xa Level 0.60 Sodium 134 L Potassium 4.7 Chloride 96.4 L Carbon Dioxide 25 Anion Gap 17 BUN 54 H Creatinine 2.8 H Estimated GFR 27 BUN/Creatinine Ratio 19 Glucose 134 H Calcium 9.2 09/02/17 09/03/17 09/03/17 15:49 04:24 04:28 Hgb 11.3 L Hct 33.9 L Plt Count 298 PT 15.9 H INR 1.20 H Heparin Anti-Xa Level 0.37 0.18 L Sodium Potassium Chloride Carbon Dioxide Anion Gap BUN Creatinine Estimated GFR BUN/Creatinine Ratio Glucose Calcium
--- NOTE | 2017-09-03 10:18 | Progress Note ---
Subjective Interval history: Patient was seen today for follow-up on multiple renal related issues Events of this hospitalization noted Still continues to have swelling both lower extremities Patient denies having any chest pain pressure or shortness of breath Vitals labs intake output medications were reviewed Social history: Reviewed Allergies: Reviewed Family history: Reviewed Physical examination HEENT: Oral mucosa moist no pallor or icterus Neck: Supple no JVD Chest: Clear to auscultation anteriorly CVS: Regular rate and rhythm S1 and S2 heard Abdomen: Soft nontender no suprapubic masses no organomegaly appreciable Extremity: Dry skin less than 2-3+ peripheral edema Musculoskeletal: No joint effusion noted in knees and ankle Neurological: Alert awake Dermatology: No petechial rashes Psychiatry: No evidence of any agitation and aggression noted Assessment and plan Chronic renal failure: Progressive decline in kidney function over time likely progression of chronic kidney disease complicated by multiple health issues including myeloma, poor dietary compliance? Cardiorenal syndrome ejection fraction only 15% with large BMI and a patient who is very noncompliant Creatinine was 2.4 in January 2016 and gradually has been worsening in the last 2 years Noncompliant patient does not follow up properly with physicians History of multiple myeloma currently in relapse being followed by oncology, was taking Revlimid and Velcade Deep venous thrombosis; if patient needs contrast exposure his risk for radiocontrast nephropathy is going to be high I have discussed this with patient at length vascular surgery to follow Hypertension adequately controlled on the low normal side to monitor and follow 24-hour urinary study to follow CT scan of the abdomen pelvis shows right renal cyst no evidence of any metastatic disease diverticulosis Overall renal prognosis guarded to poor high risk for progression to end-stage renal disease patient has been counseled and educated regarding this and he is aware off the poor renal prognosis We'll continue to follow and make recommendation from renal standpoint Patient was adequately counseled and educated regarding multiple renal related issues Pertinent lab findings were discussed with patient, patient does exhibit good understanding of renal issues We'll continue to follow and make recommendation from renal standpoint Objective - Vital Signs Vital signs: Vital Signs - 12hr 09/02/17 09/03/17 09/03/17 23:25 02:00 03:46 Temperature 99.3 F 98.0 F Pulse Rate 74 75 47 L Respiratory 20 18 Rate Blood Pressure 109/70 109/74 O2 Sat by Pulse 89 95 Oximetry 09/03/17 08:24 Temperature 97.8 F Pulse Rate 76 Respiratory 20 Rate Blood Pressure 112/66 O2 Sat by Pulse 98 Oximetry - Lab 09/03/17 04:24 09/02/17 09:09 Most recent lab results Calcium 9.2 mg/dL (8.4-10.2) 09/02/17 09:09
--- NOTE | 2017-09-03 10:27 | Progress Note ---
Assessment and Plan Pt with extensive bilateral iliofemoral DVT. IVC filter placement confirmed via Ab Xray. Mid-abdominal IVC patency confirmed via U/S. He c/o of pain in both thighs and groin regions, along with significantly difficulty ambulating due to pain. He states that this pain is relatively new. With concerns of development of postthrombotic syndrome, I discussed his wishes regarding dialysis should contrast administration be necessary. He stated emphatically that he does NOT want to be on dialysis. Should his pain continue - There is a possibility of placing catheter based thrombolysis using IVUS only from a jugular approach. This would be suboptimal overall, but given his renal function it may be the only option. Plan: Continue hep -> coumadin Monitor pain - if worse, we can consider Ekos catheter placement with IVUS guidance f/u nephrology recs Subjective Date of service: 09/03/17 Interval history: no sig events overnight. c/o pain in both thighs/groin Objective - Constitutional Vitals: Vital Signs - 12hr 09/02/17 09/03/17 09/03/17 23:25 02:00 03:46 Temperature 99.3 F 98.0 F Pulse Rate 74 75 47 L Respiratory 20 18 Rate Blood Pressure 109/70 109/74 O2 Sat by Pulse 89 95 Oximetry 09/03/17 08:24 Temperature 97.8 F Pulse Rate 76 Respiratory 20 Rate Blood Pressure 112/66 O2 Sat by Pulse 98 Oximetry General appearance: Present: no acute distress, well-nourished - EENT Eyes: PERRL, EOM intact ENT: hearing intact, clear oral mucosa Ears: bilateral: normal - Neck Neck: supple, normal ROM - Respiratory Respiratory effort: normal Respiratory: bilateral: CTA - Breasts Breasts: normal - Cardiovascular Rhythm: regular Heart Sounds: Present: S1 & S2. Absent: gallop, rub Extremity abnormal: edema, tenderness - Gastrointestinal General gastrointestinal: Present: soft, non-tender, non-distended, normal bowel sounds - Genitourinary Male genitourinary: normal - Integumentary Integumentary: clear, warm, dry - Musculoskeletal Musculoskeletal: 1, strength equal bilaterally - Neurologic Neurologic: moves all extremities - Psychiatric Psychiatric: memory intact, appropriate mood/affect, intact judgment & insight - Labs CBC & Chem 7: 09/03/17 04:24 09/02/17 09:09 Labs: Abnormal lab results 09/03/17 09/03/17 Range/Units 04:24 04:28 Hgb 11.3 L (11.8-15.2) gm/dl Hct 33.9 L (35.5-45.6) % PT 15.9 H (12.2-14.9) Sec. INR 1.20 H (0.87-1.13) Heparin Anti-Xa Level 0.18 L (0.3-0.7) U.I./ml
[2017-09-03] MEDS: PROSCAR PO SCH (11:23)
[2017-09-03] MEDS: PLAVIX PO SCH (11:23)
[2017-09-03] MEDS: PERCOCET 5/325 PO PRN (11:23)
[2017-09-03] MEDS: COREG PO SCH ×2 (11:24→23:00)
[2017-09-03] MEDS: ZYLOPRIM PO SCH ×2 (11:24→22:50)
[2017-09-03] MEDS: MINIPRESS PO SCH ×2 (11:24→23:00)
[2017-09-03] MEDS: ASPIRIN PO SCH (11:25)
[2017-09-03] MEDS: NEURONTIN PO SCH ×2 (11:25→22:50)
--- NOTE | 2017-09-03 14:18 | Progress Note ---
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 Cont heparin gtt with PO coumain per primary. Pt c/o pain in both thighs/groin and vascular is considering EKOS placement if pain persists. The patient has been seen in conjunction with Dr. Ibarra who agrees with the assessment and plan of care. Subjective Date of service: 09/03/17 Principal diagnosis: DVT Interval history: pt resting comfortably in bed, denies any current cardiac complaints. c/o pain in both thighs/groin. heparin gtt infusing. Objective Last Vital Signs Temp 98.4 F 09/03/17 12:12 Pulse 67 09/03/17 12:12 Resp 20 09/03/17 12:12 BP 103/67 09/03/17 12:12 Pulse Ox 93 09/03/17 12:12 - Physical Examination General: No Apparent Distress HEENT: Positive: PERRL Neck: Positive: trachea midline Cardiac: Positive: Reg Rate and Rhythm, S1/S2 Lungs: Positive: clear to auscultation Neuro: Positive: Grossly Intact Abdomen: Positive: Unremarkable Extremities: Present: +3 Edema - Labs and Meds Coagulation 09/03/17 Range/Units 04:28 PT 15.9 H (12.2-14.9) Sec. INR 1.20 H (0.87-1.13) CBC 09/03/17 Range/Units 04:24 Hgb 11.3 L (11.8-15.2) gm/dl Hct 33.9 L (35.5-45.6) % Plt Count 298 (140-440) K/mm3
[2017-09-03] MEDS: TYLENOL PO SCH ×2 (16:12→22:50)
[2017-09-03] MEDS: COUMADIN PO SCH (17:19)
[2017-09-04 06:20] LABS: INR 1.49 (0.87-1.13)
[2017-09-04 06:21] LABS: Heparin anti-factor XA 0.35 U.I./ml (0.3-0.7)
--- NOTE | 2017-09-04 08:59 | Progress Note ---
Subjective Principal diagnosis: DVT Interval history: Patient was seen today for follow-up on multiple renal related issues he is pending vascular procedure for DVT of his lower extremity knowing the risk of radiocontrast nephropathy that may result in decline of his renal function bad enough to need renal replacement therapy is agreeable to the procedure, and clearly does understand the risk and benefit that has been explained by the vascular physician Patient denies having any chest pain pressure or shortness of breath Vitals labs intake output medications were reviewed Social history: Reviewed Allergies: Reviewed Family history: Reviewed Physical examination HEENT: Oral mucosa moist no pallor or icterus Neck: Supple no JVD Chest: Clear to auscultation anteriorly CVS: Regular rate and rhythm S1 and S2 heard Abdomen: Soft nontender no suprapubic masses no organomegaly appreciable Extremity: Dry skin less than 2-3+ peripheral edema, unchanged at this time Musculoskeletal: No joint effusion noted in knees and ankle Neurological: Alert awake Dermatology: No petechial rashes Psychiatry: No evidence of any agitation and aggression noted Assessment and plan Chronic renal failure: continue to monitor renal function, likely progression due to poor compliance, myeloma, dietary noncompliance, cardiorenal syndrome ejection fraction of only 15% with large BMI Renal prognosis guarded to poor at this time if continues to worsen he may require renal replacement therapy patient has been made aware and does understand the risk and benefit DVT pending vascular procedure that may involve radiocontrast: Risk of nephropathy is quite high patient may require renal replacement therapy which could be temporary or permanent is aware that Multiple myeloma was given Revlimid as well as Velcade in the outpatient setting followed by Dr. Tucker Pending 24-hour urinary study High risk patient, in terms of prognosis, oncology and morbidity risk is high, partly also due to noncompliance as well as several health condition which are quite serious CT scan of the abdomen pelvis shows right renal cyst no evidence of any metastatic disease diverticulosis, Abdomen had a detailed discussion with him about the plan of care limited renal prognosis need for renal replacement therapy that may be required His case is quite complex, we'll continue to follow and make recommendation from renal standpoint Pertinent lab findings were discussed with patient, patient does exhibit good understanding of renal issues Objective - Vital Signs Vital signs: Vital Signs - 12hr 09/03/17 09/03/17 09/03/17 22:00 22:07 23:00 Temperature 98.9 F Pulse Rate 72 Respiratory Rate Blood Pressure 115/74 O2 Sat by Pulse 97 Oximetry 09/04/17 09/04/17 09/04/17 01:23 02:00 08:12 Temperature 97.5 F L 98.0 F Pulse Rate 75 71 72 Respiratory 18 20 Rate Blood Pressure 115/79 144/77 O2 Sat by Pulse 99 90 Oximetry - Lab 09/04/17 20:47 09/04/17 09:48 Most recent lab results Calcium 9.2 mg/dL (8.4-10.2) 09/02/17 09:09
[2017-09-04] MEDS: HEPARIN/ 0.45% NACL-25,000 UNIT/500 ML 25,000 UNIT/500 ML BAG IV SCH (09:03)
[2017-09-04] MEDS ORDERED: MORPHINE IV PRN ×2 (09:31)
[2017-09-04] MEDS ORDERED: NORCO 5/325 PO PRN (09:31)
[2017-09-04] MEDS ORDERED: ZOFRAN IV PRN (09:31)
--- NOTE | 2017-09-04 09:32 | Hem/Onc Progress Note ---
Assessment and Plan Continue heparin and Coumadin until INR therapeutic. eKos to be considered by vascular. Dr. Oh explained the procedure to the patient and he will be undergoing thrombolysis today Subjective Date of service: 09/04/17 Interval history: Patient admitted with DVTs. History of DVT in the past. Currently on therapy for multiple myeloma in the form of Revlimid and Velcade and dexamethasone. Now on heparin and Coumadin Patient continues to have pain in the legs. Objective - Constitutional Vitals: Last Vital Signs Temp 98.0 F 09/04/17 08:12 Pulse 72 09/04/17 08:12 Resp 20 09/04/17 08:12 BP 144/77 09/04/17 08:12 Pulse Ox 90 09/04/17 08:12 Performance status: 4-completely disabled - Neck Neck: supple - Respiratory Respiratory effort: Positive: normal - Cardiovascular Rhythm: regular Extremity abnormal: edema (bilateral) - Gastrointestinal General gastrointestinal: Present: soft - Labs Lab Results: Laboratory Results - last 24 hr 09/03/17 09/04/17 18:51 05:45 PT 18.9 H INR 1.49 H Heparin Anti-Xa Level 0.18 L 0.35
[2017-09-04] MEDS ORDERED: NACL 0.9% 1000 ML 1,000 ML EKOSCLUMEN SCH ×2 (10:00)
[2017-09-04] MEDS ORDERED: CATHFLO 10 MG in NACL 0.9% 250ML 250 ML EKOSDLUMEN SCH (10:00)
[2017-09-04] MEDS ORDERED: HEPARIN/ 0.45% NACL-25,000 UNIT/500 ML 25,000 UNIT/500 ML BAG SHEATH SCH ×2 (10:00)
[2017-09-04] MEDS ORDERED: NACL 0.9% 1000 ML 1,000 ML SHEATH SCH ×2 (10:00)
[2017-09-04] MEDS ORDERED: CATHFLO 10 MG in NACL 0.9% 250ML 250 ML IV SCH (10:00)
[2017-09-04 10:24] LABS: Basophils # (Auto) 0.1 K/mm3 (0.0-0.1); Basophils % (Auto) 2.4 % (0.0-1.8); Eosinophils # (Auto) 0.1 K/mm3 (0.0-0.4); Eosinophils % (Auto) 2.4 % (0.0-4.3); Hematocrit 36.1 % (35.5-45.6); Hemoglobin 11.7 gm/dl (11.8-15.2); Lymphocytes # (Auto) 0.5 K/mm3 (1.2-5.4); Mean Corpuscular HGB Conc 32 % (32-34); Mean Corpuscular Hemoglobin 30 pg (28-32); Mean Corpuscular Volume 93 fl (84-94); Monocytes # (Auto) 0.5 K/mm3 (0.0-0.8); Monocytes % (Auto) 8.3 % (0.0-7.3); Platelet Count 337 K/mm3 (140-440); Red Blood Count 3.88 M/mm3 (3.65-5.03); Red Cell Distribution Width 17.3 % (13.2-15.2)
--- NOTE | 2017-09-04 10:30 | Progress Note ---
Assessment and Plan Because his overall leg/thigh discomfort has not improved, and his ambulation is limited, I believe it is appropriate for an intervention today. I will place Ekos thrombolytic catheters through a bilateral popliteal approach. I consented him and spoke to his on the phone as well. He is aware of the limitations of imaging without the use of IV contrast. Heme/onc and cardiology were present during my discussion with the patient, and all are agreeable. Subjective Date of service: 09/04/17 Principal diagnosis: DVT Interval history: Increased leg/thigh discomfort compared to yesterday. Only ambulated 45 feet before feeling weak and nauseous. Objective - Constitutional Vitals: Vital Signs - 12hr 09/03/17 09/04/17 09/04/17 23:00 01:23 02:00 Temperature 97.5 F L Pulse Rate 72 75 71 Respiratory 18 Rate Blood Pressure 115/74 115/79 O2 Sat by Pulse 99 Oximetry 09/04/17 08:12 Temperature 98.0 F Pulse Rate 72 Respiratory 20 Rate Blood Pressure 144/77 O2 Sat by Pulse 90 Oximetry General appearance: Present: mild distress - EENT Eyes: PERRL, EOM intact ENT: hearing intact, clear oral mucosa - Neck Neck: supple, normal ROM - Respiratory Respiratory effort: normal Extremity abnormal: edema, tenderness - Labs CBC & Chem 7: 09/04/17 09:48 09/02/17 09:09 Labs: Abnormal lab results 09/03/17 09/04/17 09/04/17 Range/Units 18:51 05:45 09:48 Hgb 11.7 L (11.8-15.2) gm/dl RDW 17.3 H (13.2-15.2) % Lymph % (Auto) 8.0 L (13.4-35.0) % [place] % (Auto) 8.3 H (0.0-7.3) % Baso % (Auto) 2.4 H (0.0-1.8) % Lymph # 0.5 L (1.2-5.4) K/mm3 Seg Neutrophils % 78.9 H (40.0-70.0) % PT 18.9 H (12.2-14.9) Sec. INR 1.49 H (0.87-1.13) Heparin Anti-Xa Level 0.18 L (0.3-0.7) U.I./ml
[2017-09-04 10:33] LABS: INR 1.52 (0.87-1.13)
[2017-09-04 10:36] LABS: Heparin anti-factor XA 0.27 U.I./ml (0.3-0.7)
[2017-09-04 10:39] LABS: Partial Thromboplastin Time 89.1 Sec. (24.2-36.6)
[2017-09-04 10:41] LABS: Calcium 9.7 mg/dL (8.4-10.2)
[2017-09-04 10:52] LABS: Creatinine,Urine 124.5 mg/dL (0.1-20.0)
--- NOTE | 2017-09-04 11:19 | Progress Note ---
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 Pt for EKOS placement today per vascular. There are no immediate cardiac contraindications to proceeding with procedure at this time. The patient has been seen in conjunction with Dr. Ibarra who agrees with the assessment and plan of care. Subjective Date of service: 09/04/17 Principal diagnosis: DVT Interval history: pt resting comfortably in bed, denies any current cardiac complaints. c/o pain in both thighs/groin. heparin gtt infusing. Objective Last Vital Signs Temp 98.0 F 09/04/17 08:12 Pulse 72 09/04/17 08:12 Resp 20 09/04/17 08:12 BP 144/77 09/04/17 08:12 Pulse Ox 90 09/04/17 08:12 - Physical Examination General: No Apparent Distress HEENT: Positive: PERRL Neck: Positive: trachea midline Cardiac: Positive: Reg Rate and Rhythm, S1/S2 Lungs: Positive: Decreased Breath Sounds Neuro: Positive: Grossly Intact Abdomen: Positive: Unremarkable Extremities: Present: +3 Edema - Labs and Meds Coagulation 09/04/17 09/04/17 Range/Units 05:45 09:48 PT 18.9 H 19.2 H (12.2-14.9) Sec. INR 1.49 H 1.52 H (0.87-1.13) APTT 89.1 H* (24.2-36.6) Sec. CBC 09/04/17 Range/Units 09:48 WBC 5.9 (4.5-11.0) K/mm3 RBC 3.88 (3.65-5.03) M/mm3 Hgb 11.7 L (11.8-15.2) gm/dl Hct 36.1 (35.5-45.6) % Plt Count 337 (140-440) K/mm3 Lymph # 0.5 L (1.2-5.4) K/mm3 [place] # 0.5 (0.0-0.8) K/mm3 Eos # 0.1 (0.0-0.4) K/mm3 Baso # 0.1 (0.0-0.1) K/mm3 Comprehensive Metabolic Panel 09/04/17 Range/Units 09:48 Sodium 134 L (137-145) mmol/L Potassium 5.1 H (3.6-5.0) mmol/L Chloride 94.7 L (98-107) mmol/L Carbon Dioxide 26 (22-30) mmol/L BUN 56 H (9-20) mg/dL Creatinine 2.8 H (0.8-1.5) mg/dL Glucose 130 H (75-100) mg/dL Calcium 9.7 (8.4-10.2) mg/dL
[2017-09-04] MEDS: ASPIRIN PO SCH (11:24)
[2017-09-04] MEDS: PLAVIX PO SCH (11:25)
[2017-09-04] MEDS: PROSCAR PO SCH (11:25)
[2017-09-04] MEDS: COREG PO SCH ×2 (11:25→23:16)
[2017-09-04] MEDS: MINIPRESS PO SCH ×2 (11:25→23:14)
[2017-09-04] MEDS: NEURONTIN PO SCH ×2 (11:25→23:15)
[2017-09-04] MEDS: ZYLOPRIM PO SCH ×2 (11:26→23:15)
[2017-09-04] MEDS: TYLENOL PO SCH ×2 (11:26→23:14)
[2017-09-04] MEDS ORDERED: HEPARIN/NS 5000 UNIT/500ML(CATH LAB) 1,000 ML IR ONE (12:52)
[2017-09-04] MEDS ORDERED: HEPARIN 10,000 UNITS/10 ML ONE (12:52)
[2017-09-04] MEDS ORDERED: NACL 0.9% 1000 ML 1,000 ML ONE ×3 (12:52→15:03)
[2017-09-04] MEDS ORDERED: ANCEF/STERILE WATER 2 GM/20 ML 2 GM/20 ML SYRINGE IV ONE (12:53)
[2017-09-04] MEDS ORDERED: CATHFLO ONE (12:54)
[2017-09-04] MEDS: SUBLIMAZE ONE ×2 (13:05→13:23)
[2017-09-04] MEDS: XYLOCAINE 2% INFILTRATI ONE ×2 (13:09→13:28)
[2017-09-04] MEDS: VERSED ONE ×2 (13:17→13:50)
[2017-09-04] MEDS ORDERED: XYLOCAINE 2% INFILTRATI ONE (13:26)
--- NOTE | 2017-09-04 15:06 | Consultation ---
History of Present Illness Consult date: 09/04/17 Reason for consult: DVT, other (cardiomyopathy, heart failure with low ejection fraction) History of present illness: 71-year-old -[place]izen [place] male, with medical history consistent with multiple myeloma, cardiomyopathy with ejection fraction 50%. Admitted to the hospital with findings of DVT. Currently under evaluation by cardiology, oncology and to return radiology for EKOS procedure. This in the context of new finding of DVT in the lower extremities today with cardiomyopathy with ejection fraction of 15%. He already had noncontrast CT scan of the chest with no new findings and ventilation perfusion scan which was reportedly has low probability scan. He also has a prior inferior vena cava filter placed in. I' m evaluated the patient at the recovery room in the [facility]. He underwent successful procedure as reported by Dr. Oh. Currently the patient is on recovery bedside oximetry is 96% on room air. No respiratory or chest complaints reported. Minimal bleeding during procedure. Past History Past Medical History: heart failure, renal failure, other (multiple myeloma) Past Surgical History: appendectomy, Other (parathyroidectomy) Social history: full code. denies: smoking, alcohol abuse, prescription drug abuse, IV drug use Family history: CAD, cancer Medications and Allergies Allergies Allergy/AdvReac Type Severity Reaction Status Date / Time No Known Allergies Allergy Unverified 02/10/16 16:11 Home Medications Medication Instructions Recorded Confirmed Last Taken Type Acetaminophen [Tylenol Arthritis] 1,300 mg PO Q12H 09/06/16 09/02/17 08/30/17 History Allopurinol 200 mg PO DAILY 09/06/16 09/02/17 08/30/17 History Aspirin 325 mg PO DAILY 09/06/16 09/02/17 08/30/17 History Carvedilol 6.25 mg PO BID 09/06/16 09/02/17 08/30/17 History Gabapentin [Neurontin] 800 mg PO BID 09/06/16 09/02/17 08/30/17 History Terazosin 5 mg PO QHS 09/06/16 09/02/17 08/30/17 History Torsemide 40 mg PO QAM 09/06/16 09/02/17 08/30/17 History Albuterol Sulfate [Ventolin HFA] 2 puff IH Q4H PRN #1 pump 03/16/17 03/11/18 Unknown Rx Active Meds: Active Medications Acetaminophen (Tylenol) 1,000 mg PO BID [facility] Last Admin: 09/04/17 11:26 Dose: Not Given Acetaminophen/Hydrocodone Bitart ([place] 5/325) 2 each PO Q6H PRN PRN Reason: Pain, Moderate (4-6) Albuterol (Proventil) 2.5 mg IH Q4HRT PRN PRN Reason: Shortness Of Breath Allopurinol (Zyloprim) 200 mg PO BID [facility] Last Admin: 09/04/17 11:26 Dose: Not Given Aspirin (Aspirin) 325 mg PO QDAY [facility] Last Admin: 09/04/17 11:24 Dose: Not Given Carvedilol (Coreg) 12.5 mg PO BID [facility] Last Admin: 09/04/17 11:25 Dose: Not Given Clopidogrel Bisulfate (Plavix) 75 mg PO QDAY [facility] Last Admin: 09/04/17 11:25 Dose: Not Given Finasteride (Proscar) 5 mg PO QDAY [facility] Last Admin: 09/04/17 11:25 Dose: Not Given Gabapentin (Neurontin) 800 mg PO BID [facility] Last Admin: 09/04/17 11:25 Dose: Not Given Heparin Sodium/Sodium Chloride (Heparin/ 0.45% Nacl-25,000 Unit/500 Ml) 25,000 unit in 500 mls @ 30 mls/hr IV TITR SHUKRI; Protocol Last Admin: 09/04/17 09:03 Dose: 2,050 units/hr, 41 mls/hr Alteplase, Recombinant 10 mg/ (Sodium Chloride) 250 mls @ 10 mls/hr EKOSDLUMEN DIRECT SHUKRI Alteplase, Recombinant 10 mg/ (Sodium Chloride) 250 mls @ 10 mls/hr IV DIRECT SHUKRI Heparin Sodium/Sodium Chloride (Heparin/ 0.45% Nacl-25,000 Unit/500 Ml) 25,000 unit in 500 mls @ 10 mls/hr SHEATH DIRECT SHUKRI; Protocol Heparin Sodium/Sodium Chloride (Heparin/ 0.45% Nacl-25,000 Unit/500 Ml) 25,000 unit in 500 mls @ 10 mls/hr SHEATH DIRECT SHUKRI; Protocol Sodium Chloride (Nacl 0.9% 1000 Ml) 1,000 mls @ 30 mls/hr IV DIRECT SHUKRI Sodium Chloride (Nacl 0.9% 1000 Ml) 1,000 mls @ 30 mls/hr SHEATH DIRECT SHUKRI Sodium Chloride (Nacl 0.9% 1000 Ml) 1,000 mls @ 35 mls/hr EKOSCLUMEN DIRECT SHUKRI Sodium Chloride (Nacl 0.9% 1000 Ml) 1,000 mls @ 30 mls/hr SHEATH DIRECT SHUKRI Sodium Chloride (Nacl 0.9% 1000 Ml) 1,000 mls @ 35 mls/hr EKOSCLUMEN DIRECT SHUKRI Morphine Sulfate (Morphine) 4 mg IV Q4H PRN PRN Reason: Pain , Severe (7-10) Ondansetron HCl (Zofran) 4 mg IV Q8H PRN PRN Reason: Nausea And Vomiting Oxycodone/Acetaminophen (Percocet 5/325) 2 tab PO Q6H PRN PRN Reason: Moder Pain unrelieved by [place] Last Admin: 09/03/17 11:23 Dose: 2 tab Prazosin HCl (Minipress) 1 mg PO Q12HR [facility] Last Admin: 09/04/17 11:25 Dose: Not Given Warfarin Sodium (Coumadin) 8 mg PO DAILY@1700 [facility] Last Admin: 09/03/17 17:19 Dose: 8 mg Physical Examination Vital signs: Vital Signs Temp Pulse Resp BP Pulse Ox 97.8 F 74 20 87/58 97 08/31/17 21:28 08/31/17 21:28 08/31/17 21:28 08/31/17 21:28 08/31/17 21:28 General appearance: no acute distress, alert, other (obese) Eyes: non-icteric ENT: oropharynx moist Neck: supple, no JVD Ascultation: Bilateral: clear Cardiovascular: regular rate and rhythm Gastrointestinal: normoactive bowel sounds, non-distended Integumentary: other (current lower extremity pedal edema changes) Extremities: edema Musculoskeletal: no deformities normal mental status, non-focal exam, CN II-XII normal, motor strength normal and mood appropriate, affect normal Results - Laboratory Findings CBC and BMP: 09/04/17 09:48 09/04/17 09:48 PT/INR, D-dimer PT 19.2 Sec. (12.2-14.9) H 09/04/17 09:48 INR 1.52 (0.87-1.13) H 09/04/17 09:48 Abnormal lab findings: Abnormal Labs 08/31/17 08/31/17 09/01/17 22:04 22:04 00:10 Hgb Hct RDW 17.3 H Lymph % (Auto) 4.9 L [place] % (Auto) 14.4 H Baso % (Auto) Lymph # 0.3 L [place] # 0.9 H Seg Neutrophils % 78.2 H PT INR APTT Fibrinogen Heparin Anti-Xa Level Sodium Potassium 5.2 H Chloride 97.2 L BUN 52 H Creatinine 2.7 H Glucose 152 H Troponin T 0.061 H NT-Pro-B Natriuret Pep 5787 H Total Protein 6.1 L Albumin 3.2 L Urine Creatinine 09/01/17 09/01/17 09/02/17 17:43 21:24 00:18 Hgb Hct RDW Lymph % (Auto) [place] % (Auto) Baso % (Auto) Lymph # [place] # Seg Neutrophils % PT 15.1 H INR APTT Fibrinogen Heparin Anti-Xa Level < 0.10 L Sodium 134 L Potassium Chloride 94.5 L BUN 52 H Creatinine 2.7 H Glucose 137 H Troponin T NT-Pro-B Natriuret Pep Total Protein Albumin Urine Creatinine 09/02/17 09/02/17 09/02/17 04:00 09:09 09:09 Hgb 11.4 L Hct 35.1 L RDW 17.1 H Lymph % (Auto) 8.2 L [place] % (Auto) 13.9 H Baso % (Auto) Lymph # 0.5 L [place] # Seg Neutrophils % 73.6 H PT INR APTT Fibrinogen Heparin Anti-Xa Level Sodium 134 L Potassium Chloride 96.4 L BUN 54 H Creatinine 2.8 H Glucose 134 H Troponin T NT-Pro-B Natriuret Pep Total Protein Albumin Urine Creatinine 124.5 H 09/02/17 09/03/17 09/03/17 09:09 04:24 04:28 Hgb 11.3 L Hct 33.9 L RDW Lymph % (Auto) [place] % (Auto) Baso % (Auto) Lymph # [place] # Seg Neutrophils % PT 16.0 H 15.9 H INR 1.21 H 1.20 H APTT Fibrinogen Heparin Anti-Xa Level 0.18 L Sodium Potassium Chloride BUN Creatinine Glucose Troponin T NT-Pro-B Natriuret Pep Total Protein Albumin Urine Creatinine 09/03/17 09/04/1718 18:51 05:45 09:48 Hgb Hct RDW Lymph % (Auto) [place] % (Auto) Baso % (Auto) Lymph # [place] # Seg Neutrophils % PT 18.9 H 19.2 H INR 1.49 H 1.52 H APTT 89.1 H* Fibrinogen 728 H Heparin Anti-Xa Level 0.18 L 0.27 L Sodium Potassium Chloride BUN Creatinine Glucose Troponin T NT-Pro-B Natriuret Pep Total Protein Albumin Urine Creatinine 09/04/17 09/04/17 09:48 09:48 Hgb 11.7 L Hct RDW 17.3 H Lymph % (Auto) 8.0 L [place] % (Auto) 8.3 H Baso % (Auto) 2.4 H Lymph # 0.5 L [place] # Seg Neutrophils % 78.9 H PT INR APTT Fibrinogen Heparin Anti-Xa Level Sodium 134 L Potassium 5.1 H Chloride 94.7 L BUN 56 H Creatinine 2.8 H Glucose 130 H Troponin T NT-Pro-B Natriuret Pep Total Protein Albumin Urine Creatinine - Diagnostic Findings Chest x-ray: report reviewed, image reviewed CT scan - chest: report reviewed, image reviewed Assessment and Plan DVT. Status post EKOS procedure Cardiomyopathy with ejection fraction 50% Multiple myeloma Chronic kidney disease Obesity Hypertension Recommendations Plan is to transfer the patient to the ICU tonight Monitor for bleeding Follow-up EKOS procedure protocol orders Continue IV fluids. We'll follow nephrology/cardiology recommendations regarding IV fluid rate. Suggest setting initially to 50 mL/h and increase or adjust as needed although is otherwise recommended by them. DVT prophylaxis measures.
[2017-09-04] MEDS ORDERED: DILAUDID IV ONE (15:12)
[2017-09-04] MEDS ORDERED: DILAUDID ONE ×2 (15:27→15:34)
[2017-09-04] MEDS: NACL 0.9% 1000 ML 1,000 ML IV SCH (15:40)
--- NOTE | 2017-09-04 16:24 | Operative Report ---
Operative Report Operative Report: Procedure: 1. Ultrasound-guided access of the right popliteal vein 2. Ultrasound-guided access of the left popliteal vein 3. Left superficial femoral venography 4. Right superficial femoral venography 5. Inferior vena cavography 6. Placement of a 106 cm Ekos (50 cm treatment length) spanning the right superficial femoral vein to the IVC 7. Placement of a 135 cm Ekos (50 cm treatment length) spanning the left superficial femoral vein to the IVC Date of Procedure: 09/04/2017 History/Indication: 71-year-old male with multiple comorbidities and a pre-existing IVC filter. He is symptomatic with pain and swelling, from extensive bilateral DVT, spanning the distal IVC to the below-knee veins. Physician: Gomez Oh MD Technique/Procedural Details: The patient was placed in the prone position and prepped and draped in the usual sterile fashion. A timeout was performed. Local anesthetic was administered. Under continuous ultrasound guidance, a 21-gauge needle was advanced in to the right popliteal vein. This was exchanged for a 4 Ghanaian exchanged dilator over an 018 wire. A small amount of contrast was injected to confirm placement. The dilator was exchanged for a combination of a 4 Ghanaian vertebral catheter and glide advantage wire. The glide advantage wire was maneuvered into the IVC. The vertebral catheter was then exchanged for a 6 [place]ian vascular sheath. A similar series of steps was performed for the left popliteal vein. Thereafter, Ekos catheters were placed through both sheaths (treatment lengths as above). Both sheaths were secured to the skin with 0 Prolene suture. The catheters were secured to the sheaths with Steri-Strips. Multiple sterile dressings were placed. The appropriate amounts of tPA and heparin were infused into the catheter and sheath respectively. The patient was then transported to the ICU for closer monitoring. Discussion: There is successful placement of ultrasonic thrombolytic catheters in both lower extremity veins, spanning the peripheral superficial femoral vein to the IVC. Due to the patient's renal failure, a total of 10 mL of dilute Visipaque was administered for venography. There are extensive filling defects in both superficial femoral veins, confirming the presence of thrombus. Specimen: None EBL: <5 cc
--- NOTE | 2017-09-04 16:33 | Progress Note ---
Assessment and Plan Assessment and plan: Acute on chronic CHF exacerbation - Cardiology is following - AICD in situ - Currently stable CKD - Nephrology consulted Multiple myeloma, back pain - Oncology consult appreciated Bilateral lower extremity DVT, history of DVT status post filter -Patient is on heparin and Coumadin, INR this morning is 1.52 -Vascular surgery did EKOS this morning DVT prophylaxis - Heparin and warfarin Disposition -Continue inpatient care until INR is therapeutic History Interval history: Patient was seen and evaluated this morning, bilateral lower extremity pain is getting better. Hospitalist Physical - Physical exam Narrative exam: Not in cardiopulmonary distress. The patient is obese. Vital signs as documented. Head exam is unremarkable. No scleral icterus . Neck is without jugular venous distension, thyromegaly, or carotid bruits. Lungs are clear to auscultation. Cardiac exam reveals regular rate and Rhythm. First and second heart sounds normal. No murmurs, rubs or gallops. Abdominal exam reveals normal bowel sounds, no masses, no organomegaly and no aortic enlargement. Extremities are +1 pedal and pretibial edema. 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 No focal weakness. - Constitutional Vitals: Temp Pulse Resp BP Pulse Ox 97.3 F L 79 20 132/74 96 09/04/17 14:55 09/04/17 16:15 09/04/17 16:15 09/04/17 16:15 09/04/17 16:15 General appearance: Present: mild distress Results - Labs CBC & Chem 7: 09/04/17 09:48 09/04/17 09:48 Labs: Laboratory Last Values WBC 5.9 K/mm3 (4.5-11.0) 09/04/17 09:48 RBC 3.88 M/mm3 (3.65-5.03) 09/04/17 09:48 Hgb 11.7 gm/dl (11.8-15.2) L 09/04/17 09:48 Hct 36.1 % (35.5-45.6) 09/04/17 09:48 MCV 93 fl (84-94) 09/04/17 09:48 MCH 30 pg (28-32) 09/04/17 09:48 MCHC 32 % (32-34) 09/04/17 09:48 RDW 17.3 % (13.2-15.2) H 09/04/17 09:48 Plt Count 337 K/mm3 (140-440) 09/04/17 09:48 Lymph % (Auto) 8.0 % (13.4-35.0) L 09/04/17 09:48 [place] % (Auto) 8.3 % (0.0-7.3) H 09/04/17 09:48 Eos % (Auto) 2.4 % (0.0-4.3) 09/04/17 09:48 Baso % (Auto) 2.4 % (0.0-1.8) H 09/04/17 09:48 Lymph # 0.5 K/mm3 (1.2-5.4) L 09/04/17 09:48 [place] # 0.5 K/mm3 (0.0-0.8) 09/04/17 09:48 Eos # 0.1 K/mm3 (0.0-0.4) 09/04/17 09:48 Baso # 0.1 K/mm3 (0.0-0.1) 09/04/17 09:48 Seg Neutrophils % 78.9 % (40.0-70.0) H 09/04/17 09:48 Seg Neutrophils # 4.6 K/mm3 (1.8-7.7) 09/04/17 09:48 PT 19.2 Sec. (12.2-14.9) H 09/04/17 09:48 INR 1.52 (0.87-1.13) H 09/04/17 09:48 APTT 89.1 Sec. (24.2-36.6) H* 09/04/17 09:48 Fibrinogen 728 mg/dl (211-480) H 09/04/17 09:48 Heparin Anti-Xa Level 0.27 U.I./ml (0.3-0.7) L 09/04/17 09:48 Sodium 134 mmol/L (137-145) L 09/04/17 09:48 Potassium 5.1 mmol/L (3.6-5.0) H 09/04/17 09:48 Chloride 94.7 mmol/L (98-107) L 09/04/17 09:48 Carbon Dioxide 26 mmol/L (22-30) 09/04/17 09:48 Anion Gap 18 mmol/L 09/04/17 09:48 BUN 56 mg/dL (9-20) H 09/04/17 09:48 Creatinine 2.8 mg/dL (0.8-1.5) H 09/04/17 09:48 Estimated GFR 27 ml/min 09/04/17 09:48 BUN/Creatinine Ratio 20 % 09/04/17 09:48 Glucose 130 mg/dL (75-100) H 09/04/17 09:48 Calcium 9.7 mg/dL (8.4-10.2) 09/04/17 09:48 Total Bilirubin 0.80 mg/dL (0.1-1.2) 08/31/17 22:04 AST 32 units/L (5-40) 08/31/17 22:04 ALT 31 units/L (7-56) 08/31/17 22:04 Alkaline Phosphatase 81 units/L (35-129) 08/31/17 22:04 Troponin T 0.061 ng/mL (0.00-0.029) H 09/01/17 00:10 NT-Pro-B Natriuret Pep 5787 pg/mL (0-900) H 09/01/17 00:10 Total Protein 6.1 g/dL (6.3-8.2) L 08/31/17 22:04 Albumin 3.2 g/dL (3.9-5) L 08/31/17 22:04 Albumin/Globulin Ratio 1.1 % 08/31/17 22:04 Triglycerides 148 mg/dL (2-149) 09/01/17 00:10 Cholesterol 170 mg/dL (50-199) 09/01/17 00:10 LDL Cholesterol Direct 97 mg/dL (50-130) 09/01/17 00:10 HDL Cholesterol 45 mg/dL (40-59) 09/01/17 00:10 Cholesterol/HDL Ratio 3.77 % 09/01/17 00:10 Urine Color Yellow (Yellow) 08/31/17 23:00 Urine Turbidity Clear (Clear) 08/31/17 23:00 Urine pH 5.0 (5.0-7.0) 08/31/17 23:00 Ur Specific [place] 1.015 (1.003-1.030) 08/31/17 23:00 Urine Protein 100 mg/dl mg/dL (Negative) 08/31/17 23:00 Urine Glucose (UA) Neg mg/dL (Negative) 08/31/17 23:00 Urine Ketones Neg mg/dL (Negative) 08/31/17 23:00 Urine Blood Neg (Negative) 08/31/17 23:00 Urine Nitrite Neg (Negative) 08/31/17 23:00 Urine Bilirubin Neg (Negative) 08/31/17 23:00 Urine Urobilinogen 2.0 mg/dL (<2.0) 08/31/17 23:00 Ur Leukocyte Esterase Neg (Negative) 08/31/17 23:00 Urine WBC (Auto) 3.0 /HPF (0.0-6.0) 08/31/17 23:00 Urine RBC (Auto) 2.0 /HPF (0.0-6.0) 08/31/17 23:00 U Epithel Cells (Auto) < 1.0 /HPF (0-13.0) 08/31/17 23:00 Hyaline Casts 1 /LPF 08/31/17 23:00 Urine Mucus Few /HPF 08/31/17 23:00 Urine Total Volume 750 09/02/17 04:00 Urine Creatinine 124.5 mg/dL (0.1-20.0) H 09/02/17 04:00 Height (in) 71.0 inches 09/02/17 04:00 Weight (lb) 280.0 lbs 09/02/17 04:00 Creatinine Clearance 17 09/02/17 04:00
[2017-09-04] MEDS: COUMADIN PO SCH (17:21)
[2017-09-04] MEDS ORDERED: MORPHINE ONE (18:29)
[2017-09-04 21:08] LABS: Basophils # (Auto) 0.1 K/mm3 (0.0-0.1); Basophils % (Auto) 1.4 % (0.0-1.8); Eosinophils # (Auto) 0.1 K/mm3 (0.0-0.4); Eosinophils % (Auto) 1.1 % (0.0-4.3); Hemoglobin 11.1 gm/dl (11.8-15.2); Lymphocytes # (Auto) 0.3 K/mm3 (1.2-5.4); Lymphocytes % (Auto) 4.7 % (13.4-35.0); Mean Corpuscular HGB Conc 32 % (32-34); Mean Corpuscular Hemoglobin 30 pg (28-32); Mean Corpuscular Volume 93 fl (84-94); Monocytes # (Auto) 0.6 K/mm3 (0.0-0.8); Monocytes % (Auto) 8.9 % (0.0-7.3); Platelet Count 308 K/mm3 (140-440); Red Blood Count 3.76 M/mm3 (3.65-5.03); Red Cell Distribution Width 17.3 % (13.2-15.2)
[2017-09-04 21:19] LABS: Fibrinogen 445 mg/dl (211-480)
[2017-09-04 21:28] LABS: Heparin anti-factor XA < 0.10 U.I./ml (0.3-0.7)
[2017-09-05] MEDS: NACL 0.9% 1000 ML 1,000 ML IV SCH (02:00)
[2017-09-05 02:42] LABS: Basophils # (Auto) 0.1 K/mm3 (0.0-0.1); Basophils % (Auto) 1.3 % (0.0-1.8); Eosinophils # (Auto) 0.1 K/mm3 (0.0-0.4); Hematocrit 32.7 % (35.5-45.6); Hemoglobin 10.8 gm/dl (11.8-15.2); Lymphocytes # (Auto) 0.3 K/mm3 (1.2-5.4); Lymphocytes % (Auto) 4.1 % (13.4-35.0); Mean Corpuscular HGB Conc 33 % (32-34); Mean Corpuscular Hemoglobin 31 pg (28-32); Mean Corpuscular Volume 92 fl (84-94); Monocytes # (Auto) 0.7 K/mm3 (0.0-0.8); Monocytes % (Auto) 8.7 % (0.0-7.3); Platelet Count 271 K/mm3 (140-440); Red Blood Count 3.55 M/mm3 (3.65-5.03); Red Cell Distribution Width 17.3 % (13.2-15.2)
[2017-09-05 02:54] LABS: INR 2.09 (0.87-1.13)
[2017-09-05 03:00] LABS: Calcium 8.9 mg/dL (8.4-10.2)
[2017-09-05 03:06] LABS: Heparin anti-factor XA 0.1 U.I./ml (0.3-0.7)
--- NOTE | 2017-09-05 09:29 | Hem/Onc Progress Note ---
Assessment and Plan Appreciate vascular's help. INR therapeutic. Continue Coumadin area continue heparin until vascular stops it. Monitor counts. Renal functions stable Subjective Date of service: 09/05/17 Interval history: Patient status post E Kos. Still having pain but seems to be better. A little bit confused today. Complains of dry mouth. Objective - Constitutional Vitals: Last Vital Signs Temp 98.1 F 09/05/17 08:00 Pulse 71 09/05/17 06:00 Resp 17 09/05/17 06:00 BP 97/61 09/05/17 06:00 Pulse Ox 99 09/05/17 08:00 General appearance: no acute distress Performance status: 4-completely disabled - Neck Neck: supple - Respiratory Respiratory: bilateral: diminished - Cardiovascular Rhythm: regular Extremity abnormal: other (bilateral edema. Warm extremities) - Gastrointestinal General gastrointestinal: Present: soft - Labs Lab Results: Laboratory Results - last 24 hr 09/02/17 09/04/17 09/04/17 04:00 09:48 09:48 WBC 5.9 RBC 3.88 Hgb 11.7 L Hct 36.1 MCV 93 MCH 30 MCHC 32 RDW 17.3 H Plt Count 337 Lymph % (Auto) 8.0 L [place] % (Auto) 8.3 H Eos % (Auto) 2.4 Baso % (Auto) 2.4 H Lymph # 0.5 L [place] # 0.5 Eos # 0.1 Baso # 0.1 Seg Neutrophils % 78.9 H Seg Neutrophils # 4.6 PT 19.2 H INR 1.52 H APTT 89.1 H* Fibrinogen 728 H Heparin Anti-Xa Level 0.27 L Sodium Potassium Chloride Carbon Dioxide Anion Gap BUN Creatinine Estimated GFR BUN/Creatinine Ratio Glucose Calcium Urine Total Volume 750 Urine Creatinine 124.5 H Height (in) 71.0 Weight (lb) 280.0 Creatinine Clearance 09/04/17 09/04/17 09/04/17 09:48 20:47 20:47 WBC 6.9 RBC 3.76 Hgb 11.1 L Hct 35.0 L MCV 93 MCH 30 MCHC 32 RDW 17.3 H Plt Count 308 Lymph % (Auto) 4.7 L [place] % (Auto) 8.9 H Eos % (Auto) 1.1 Baso % (Auto) 1.4 Lymph # 0.3 L [place] # 0.6 Eos # 0.1 Baso # 0.1 Seg Neutrophils % 83.9 H Seg Neutrophils # 5.8 PT INR APTT Fibrinogen 445 Heparin Anti-Xa Level < 0.10 L Sodium 134 L Potassium 5.1 H Chloride 94.7 L Carbon Dioxide 26 Anion Gap 18 BUN 56 H Creatinine 2.8 H Estimated GFR 27 BUN/Creatinine Ratio 20 Glucose 130 H Calcium 9.7 Urine Total Volume Urine Creatinine Height (in) Weight (lb) Creatinine Clearance 09/05/17 09/05/17 09/05/17 02:25 02:25 02:25 WBC 7.6 RBC 3.55 L Hgb 10.8 L Hct 32.7 L MCV 92 MCH 31 MCHC 33 RDW 17.3 H Plt Count 271 Lymph % (Auto) 4.1 L [place] % (Auto) 8.7 H Eos % (Auto) 1.0 Baso % (Auto) 1.3 Lymph # 0.3 L [place] # 0.7 Eos # 0.1 Baso # 0.1 Seg Neutrophils % 84.9 H Seg Neutrophils # 6.4 PT 24.8 H INR 2.09 H APTT Fibrinogen 306 Heparin Anti-Xa Level 0.10 L Sodium 136 L Potassium 4.9 Chloride 99.4 Carbon Dioxide 23 Anion Gap 19 BUN 55 H Creatinine 2.5 H Estimated GFR 31 BUN/Creatinine Ratio 22 Glucose 138 H Calcium 8.9 Urine Total Volume Urine Creatinine Height (in) Weight (lb) Creatinine Clearance
--- NOTE | 2017-09-05 09:44 | Progress Note ---
Assessment and Plan DVT. Status post EKOS procedure Cardiomyopathy with ejection fraction 50% Multiple myeloma Chronic kidney disease Obesity Hypertension Recommendations Monitor for bleeding Follow-up EKOS procedure protocol orders Continue IV fluids. We'll follow nephrology/cardiology recommendations regarding IV fluid rate. I recommended adding incentive spirometry for atelectasis prevention DVT prophylaxis measures. Critical care time was 31 minutes of [id number] evaluation and coordination of care Subjective Date of service: 09/05/17 Principal diagnosis: DVT s/p EKOS , Severe CMP Interval history: Denies shortness of breath or cough. No bleeding problems reported. No chest pain. No focal neurological complaints Objective Vital Signs - 12hr 09/04/17 09/04/17 09/04/17 22:00 22:30 23:00 Temperature Pulse Rate 91 H 95 H 87 Respiratory 18 14 15 Rate Blood Pressure 126/63 126/63 113/59 O2 Sat by Pulse Oximetry 09/04/17 09/04/17 09/04/17 23:14 23:16 23:30 Temperature Pulse Rate 87 89 89 Respiratory 14 Rate Blood Pressure 113/59 113/59 122/65 O2 Sat by Pulse 98 Oximetry 09/05/17 09/05/17 09/05/17 00:00 00:30 01:00 Temperature 99.9 F H Pulse Rate 81 77 75 Respiratory 12 12 13 Rate Blood Pressure 96/49 97/56 83/51 O2 Sat by Pulse 98 91 Oximetry 09/05/17 09/05/17 09/05/17 01:30 02:01 02:30 Temperature Pulse Rate 78 73 76 Respiratory 16 11 L 14 Rate Blood Pressure 110/53 101/52 106/58 O2 Sat by Pulse 95 100 95 Oximetry 09/05/17 09/05/17 09/05/17 02:32 03:00 03:30 Temperature Pulse Rate 89 77 77 Respiratory 16 16 Rate Blood Pressure 108/60 101/67 O2 Sat by Pulse 88 96 Oximetry 09/05/17 09/05/17 09/05/17 04:00 04:30 05:00 Temperature 98.9 F Pulse Rate 75 75 72 Respiratory 14 13 15 Rate Blood Pressure 98/65 103/64 102/59 O2 Sat by Pulse 98 90 97 Oximetry 09/05/17 09/05/17 09/05/17 05:30 06:00 08:00 Temperature 98.1 F Pulse Rate 73 71 Respiratory 14 17 Rate Blood Pressure 100/61 97/61 O2 Sat by Pulse 92 98 99 Oximetry Constitutional: no acute distress, alert, other (obese) Eyes: non-icteric ENT: oropharynx moist Neck: supple, no JVD Ascultation: Bilateral: clear Cardiovascular: regular rate and rhythm Gastrointestinal: normoactive bowel sounds, non-distended Integumentary: other (current lower extremity pedal edema changes. Lines in place) Extremities: edema Neurologic: normal mental status, non-focal exam, CN II-XII normal, motor strength normal and Psychiatric: mood appropriate, affect normal CBC and BMP: 09/05/17 02:25 09/05/17 02:25 ABG, PT/INR, D-dimer: PT/INR, D-dimer PT 24.8 Sec. (12.2-14.9) H 09/05/17 02:25 INR 2.09 (0.87-1.13) H 09/05/17 02:25 Abnormal lab findings: Abnormal Labs 08/31/17 08/31/17 09/01/17 22:04 22:04 00:10 RBC Hgb Hct RDW 17.3 H Lymph % (Auto) 4.9 L [place] % (Auto) 14.4 H Baso % (Auto) Lymph # 0.3 L [place] # 0.9 H Seg Neutrophils % 78.2 H PT INR APTT Fibrinogen Heparin Anti-Xa Level Sodium Potassium 5.2 H Chloride 97.2 L BUN 52 H Creatinine 2.7 H Glucose 152 H Troponin T 0.061 H NT-Pro-B Natriuret Pep 5787 H Total Protein 6.1 L Albumin 3.2 L Urine Creatinine 09/01/17 09/01/17 09/02/17 17:43 21:24 00:18 RBC Hgb Hct RDW Lymph % (Auto) [place] % (Auto) Baso % (Auto) Lymph # [place] # Seg Neutrophils % PT 15.1 H INR APTT Fibrinogen Heparin Anti-Xa Level < 0.10 L Sodium 134 L Potassium Chloride 94.5 L BUN 52 H Creatinine 2.7 H Glucose 137 H Troponin T NT-Pro-B Natriuret Pep Total Protein Albumin Urine Creatinine 09/02/17 09/02/17 09/02/17 04:00 09:09 09:09 RBC Hgb 11.4 L Hct 35.1 L RDW 17.1 H Lymph % (Auto) 8.2 L [place] % (Auto) 13.9 H Baso % (Auto) Lymph # 0.5 L [place] # Seg Neutrophils % 73.6 H PT INR APTT Fibrinogen Heparin Anti-Xa Level Sodium 134 L Potassium Chloride 96.4 L BUN 54 H Creatinine 2.8 H Glucose 134 H Troponin T NT-Pro-B Natriuret Pep Total Protein Albumin Urine Creatinine 124.5 H 09/02/17 09/03/17 09/03/17 09:09 04:24 04:28 RBC Hgb 11.3 L Hct 33.9 L RDW Lymph % (Auto) [place] % (Auto) Baso % (Auto) Lymph # [place] # Seg Neutrophils % PT 16.0 H 15.9 H INR 1.21 H 1.20 H APTT Fibrinogen Heparin Anti-Xa Level 0.18 L Sodium Potassium Chloride BUN Creatinine Glucose Troponin T NT-Pro-B Natriuret Pep Total Protein Albumin Urine Creatinine 09/03/17 09/04/17 09/04/17 18:51 05:45 09:48 RBC Hgb Hct RDW Lymph % (Auto) [place] % (Auto) Baso % (Auto) Lymph # [place] # Seg Neutrophils % PT 18.9 H 19.2 H INR 1.49 H 1.52 H APTT 89.1 H* Fibrinogen 728 H Heparin Anti-Xa Level 0.18 L 0.27 L Sodium Potassium Chloride BUN Creatinine Glucose Troponin T NT-Pro-B Natriuret Pep Total Protein Albumin Urine Creatinine 09/04/17 09/04/17 09/04/17 09:48 09:48 20:47 RBC Hgb 11.7 L 11.1 L Hct 35.0 L RDW 17.3 H 17.3 H Lymph % (Auto) 8.0 L 4.7 L [place] % (Auto) 8.3 H 8.9 H Baso % (Auto) 2.4 H Lymph # 0.5 L 0.3 L [place] # Seg Neutrophils % 78.9 H 83.9 H PT INR APTT Fibrinogen Heparin Anti-Xa Level Sodium 134 L Potassium 5.1 H Chloride 94.7 L BUN 56 H Creatinine 2.8 H Glucose 130 H Troponin T NT-Pro-B Natriuret Pep Total Protein Albumin Urine Creatinine 09/04/17 09/05/17 09/05/17 20:47 02:25 02:25 RBC 3.55 L Hgb 10.8 L Hct 32.7 L RDW 17.3 H Lymph % (Auto) 4.1 L [place] % (Auto) 8.7 H Baso % (Auto) Lymph # 0.3 L [place] # Seg Neutrophils % 84.9 H PT 24.8 H INR 2.09 H APTT Fibrinogen Heparin Anti-Xa Level < 0.10 L 0.10 L Sodium Potassium Chloride BUN Creatinine Glucose Troponin T NT-Pro-B Natriuret Pep Total Protein Albumin Urine Creatinine 09/05/17 02:25 RBC Hgb Hct RDW Lymph % (Auto) [place] % (Auto) Baso % (Auto) Lymph # [place] # Seg Neutrophils % PT INR APTT Fibrinogen Heparin Anti-Xa Level Sodium 136 L Potassium Chloride BUN 55 H Creatinine 2.5 H Glucose 138 H Troponin T NT-Pro-B Natriuret Pep Total Protein Albumin Urine Creatinine
--- NOTE | 2017-09-05 09:57 | Progress Note ---
Subjective Principal diagnosis: DVT s/p EKOS , Severe CMP Interval history: Patient was seen today for follow-up on multiple renal related issues Transferred to ICU yesterday after the vascular procedure Vitals labs intake output medications were reviewed Social history: Reviewed Allergies: Reviewed Family history: Reviewed Physical examination HEENT: Oral mucosa moist no pallor or icterus Neck: Supple no JVD Chest: Clear to auscultation anteriorly CVS: Regular rate and rhythm S1 and S2 heard Abdomen: Soft nontender no suprapubic masses no organomegaly appreciable Extremity: Dry skin less than 2-3+ peripheral edema, unchanged at this time Musculoskeletal: No joint effusion noted in knees and ankle Neurological: Alert awake Dermatology: No petechial rashes Psychiatry: No evidence of any agitation and aggression noted Assessment and plan Chronic kidney disease estimated GFR around 31 so stage III, renal function is somewhat better creatinine is 2.5 DVT both lower extremity status post vascular procedure contrast exposure renal function is better to follow Hyperkalemia: Much better today Low-grade hyponatremia between 134-126 to follow Multiple myeloma: Being followed by oncology Severe cardiomyopathy Chronically noncompliant patient Counseled and educated will follow Follow-up 24-hour urine report Pertinent lab findings were discussed with patient, patient does exhibit good understanding of renal issues Objective - Vital Signs Vital signs: Vital Signs - 12hr 09/04/17 09/04/17 09/04/17 22:00 22:30 23:00 Temperature Pulse Rate 91 H 95 H 87 Respiratory 18 14 15 Rate Blood Pressure 126/63 126/63 113/59 O2 Sat by Pulse Oximetry 09/04/17 09/04/17 09/04/17 23:14 23:16 23:30 Temperature Pulse Rate 87 89 89 Respiratory 14 Rate Blood Pressure 113/59 113/59 122/65 O2 Sat by Pulse 98 Oximetry 09/05/17 09/05/17 09/05/17 00:00 00:30 01:00 Temperature 99.9 F H Pulse Rate 81 77 75 Respiratory 12 12 13 Rate Blood Pressure 96/49 97/56 83/51 O2 Sat by Pulse 98 91 Oximetry 09/05/17 09/05/17 09/05/17 01:30 02:01 02:30 Temperature Pulse Rate 78 73 76 Respiratory 16 11 L 14 Rate Blood Pressure 110/53 101/52 106/58 O2 Sat by Pulse 95 100 95 Oximetry 09/05/17 09/05/1718 02:32 03:00 03:30 Temperature Pulse Rate 89 77 77 Respiratory 16 16 Rate Blood Pressure 108/60 101/67 O2 Sat by Pulse 88 96 Oximetry 09/05/17 09/05/17 09/05/17 04:00 04:30 05:00 Temperature 98.9 F Pulse Rate 75 75 72 Respiratory 14 13 15 Rate Blood Pressure 98/65 103/64 102/59 O2 Sat by Pulse 98 90 97 Oximetry 09/05/17 09/05/17 09/05/17 05:30 06:00 08:00 Temperature 98.1 F Pulse Rate 73 71 Respiratory 14 17 Rate Blood Pressure 100/61 97/61 O2 Sat by Pulse 92 98 99 Oximetry - Lab 09/05/17 02:25 09/05/17 02:25 Most recent lab results Calcium 8.9 mg/dL (8.4-10.2) 09/05/17 02:25 Urine Creatinine 124.5 mg/dL (0.1-20.0) H 09/02/17 04:00
--- NOTE | 2017-09-05 10:35 | Vascular Lab Report ---
LOWER EXTREMITY VENOUS DUPLEX: REASON FOR EXAM: Pain and swelling of the lower extremities. COMMENTS ON THE RIGHT: Extensive acute deep venous thrombosis is seen throughout the deep system of the right lower extremity. Veins involved include the common femoral vein, deep femoral vein, superficial femoral vein, popliteal vein, and proximal greater saphenous vein. The remaining veins visualized are freely compressible without evidence of internal echogenicity. Spontaneous and phasic flow is absent proximally. COMMENTS ON THE LEFT: Extensive acute deep venous thrombosis is seen throughout the limb. Vessels involved include the external iliac vein, the common femoral vein, deep femoral vein, the superficial femoral vein, the proximal greater saphenous vein, popliteal vein, but tibial veins, and a gastrocnemius vein. The remaining veins visualized are freely compressible without evidence of internal echogenicity. Spontaneous and phasic flow is absent proximally. IMPRESSION: Extensive, acute bilateral deep venous thrombosis in both lower extremities.
--- NOTE | 2017-09-05 10:56 | Vascular Lab Report ---
Vena cava duplex Reason for exam: Confirmation of the presence of an inferior vena cava filter Comments: Study is technically limited due to patient body habitus and overlying bowel gas. The vena cava appears to be patent. A filter cannot be definitively seen. Impression: Technically limited study of minimal diagnostic value. Vena cava appears to be patent. No filter can be identified.
--- NOTE | 2017-09-05 12:31 | Progress Note ---
Assessment and Plan Assessment: Chronic systolic heart failure - stable; no current clinical evidence of acutely decompensated HF CMP - EF 15-20% Bi-V AICD in situ Bilateral DVT H/o DVT s/p IVC filter CKD H/o multiple myeloma H/o TIA EFE Morbid obesity Plan: S/p EKOS placement yesterday. Currently stable cardiac status. The patient has been seen in conjunction with Dr. Ibarra who agrees with the assessment and plan of care. Subjective Date of service: 09/05/17 Principal diagnosis: DVT s/p EKOS , Severe CMP Interval history: pt resting comfortably in bed, s/p EKOS yesterday and reports resolution of BLE pain. denies any current cardiac complaints. Objective Last Vital Signs Temp 98.2 F 09/05/17 11:52 Pulse 71 09/05/17 06:00 Resp 17 09/05/17 06:00 BP 97/61 09/05/17 06:00 Pulse Ox 99 09/05/17 08:00 - Physical Examination General: No Apparent Distress HEENT: Positive: PERRL Neck: Positive: trachea midline Cardiac: Positive: Reg Rate and Rhythm, S1/S2 Lungs: Positive: clear to auscultation Neuro: Positive: Grossly Intact Abdomen: Positive: Unremarkable Extremities: Present: +3 Edema - Labs and Meds Coagulation 09/05/17 Range/Units 02:25 PT 24.8 H (12.2-14.9) Sec. INR 2.09 H (0.87-1.13) CBC 09/04/17 09/05/17 Range/Units 20:47 02:25 WBC 6.9 7.6 (4.5-11.0) K/mm3 RBC 3.76 3.55 L (3.65-5.03) M/mm3 Hgb 11.1 L 10.8 L (11.8-15.2) gm/dl Hct 35.0 L 32.7 L (35.5-45.6) % Plt Count 308 271 (140-440) K/mm3 Lymph # 0.3 L 0.3 L (1.2-5.4) K/mm3 [place] # 0.6 0.7 (0.0-0.8) K/mm3 Eos # 0.1 0.1 (0.0-0.4) K/mm3 Baso # 0.1 0.1 (0.0-0.1) K/mm3 Comprehensive Metabolic Panel 09/05/17 Range/Units 02:25 Sodium 136 L (137-145) mmol/L Potassium 4.9 (3.6-5.0) mmol/L Chloride 99.4 (98-107) mmol/L Carbon Dioxide 23 (22-30) mmol/L BUN 55 H (9-20) mg/dL Creatinine 2.5 H (0.8-1.5) mg/dL Glucose 138 H (75-100) mg/dL Calcium 8.9 (8.4-10.2) mg/dL
[2017-09-05] MEDS ORDERED: ANCEF/STERILE WATER 2 GM/20 ML 0 GM/0 ML SYRINGE IV ONE (13:58)
[2017-09-05] MEDS ORDERED: VERSED ONE ×2 (13:58→15:17)
[2017-09-05] MEDS ORDERED: XYLOCAINE 2% INFILTRATI ONE (13:58)
[2017-09-05] MEDS ORDERED: HEPARIN/NS 5000 UNIT/500ML(CATH LAB) 1,500 ML IR ONE (13:58)
[2017-09-05] MEDS ORDERED: HEPARIN 10,000 UNITS/10 ML ONE (13:58)
[2017-09-05] MEDS: SUBLIMAZE ONE ×4 (14:11→15:17)
--- NOTE | 2017-09-05 16:06 | Post Operative Note ---
Pre-op diagnosis: DVT Post-op diagnosis: same Findings: Significant improvement of bilateral lower extremity DVT Procedure: 1. Intravascular ultrasound of the distal inferior vena cava 2. Intravascular ultrasound of the right common iliac, right external iliac, right common femoral, and right superficial femoral veins. 3. Intravascular ultrasound of the left common iliac, left external iliac, left common femoral, and left superficial femoral veins 4. Right iliac and femoral venography with dilute contrast 5. Left iliac and femoral venography with dilute contrast 6. Balloon angioplasty of the right common iliac, right external iliac, right common femoral, and right superficial femoral veins. 7. Balloon angioplasty of the left common iliac, left external iliac, left common femoral, and left superficial femoral veins 8. Mechanical thrombectomy of both lower extremity veins spanning the IVC to the distal superficial femoral vein with an 8 [place] AngioJet device Anesthesia: local Surgeon: CHELE GLOVER Estimated blood loss: minimal Pathology: none Condition: stable Disposition: ICU
[2017-09-05] MEDS: COUMADIN PO SCH (16:49)
--- NOTE | 2017-09-05 17:44 | Progress Note ---
Assessment and Plan Assessment and plan: Acute on chronic CHF exacerbation - Cardiology is following - AICD in situ - Currently stable CKD - Nephrology consulted Multiple myeloma, back pain - Oncology consult appreciated Bilateral lower extremity DVT, history of DVT status post filter -Patient is on heparin and Coumadin, INR this morning is 2 -Vascular surgery did EKOS -baloon angioplasty and thrombectomy was done in the LE veins DVT prophylaxis - Heparin and warfarin Disposition -Continue inpatient care History Interval history: Patient was seen and evaluated this morning, bilateral lower extremity pain is getting better. S/P EKOS Hospitalist Physical - Physical exam Narrative exam: Not in cardiopulmonary distress. The patient is obese. Vital signs as documented. Head exam is unremarkable. No scleral icterus . Neck is without jugular venous distension, thyromegaly, or carotid bruits. Lungs are clear to auscultation. Cardiac exam reveals regular rate and Rhythm. First and second heart sounds normal. No murmurs, rubs or gallops. Abdominal exam reveals normal bowel sounds, no masses, no organomegaly and no aortic enlargement. Extremities are +1 pedal and pretibial edema. 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 No focal weakness. - Constitutional Vitals: Temp Pulse Resp BP Pulse Ox 98.2 F 77 15 112/68 100 09/05/17 11:52 09/05/17 13:00 09/05/17 13:00 09/05/17 13:00 09/05/17 13:00 General appearance: Present: mild distress Results - Labs CBC & Chem 7: 09/05/17 02:25 09/05/17 02:25 Labs: Laboratory Last Values WBC 7.6 K/mm3 (4.5-11.0) 09/05/17 02:25 RBC 3.55 M/mm3 (3.65-5.03) L 09/05/17 02:25 Hgb 10.8 gm/dl (11.8-15.2) L 09/05/17 02:25 Hct 32.7 % (35.5-45.6) L 09/05/17 02:25 MCV 92 fl (84-94) 09/05/17 02:25 MCH 31 pg (28-32) 09/05/17 02:25 MCHC 33 % (32-34) 09/05/17 02:25 RDW 17.3 % (13.2-15.2) H 09/05/17 02:25 Plt Count 271 K/mm3 (140-440) 09/05/17 02:25 Lymph % (Auto) 4.1 % (13.4-35.0) L 09/05/17 02:25 [place] % (Auto) 8.7 % (0.0-7.3) H 09/05/17 02:25 Eos % (Auto) 1.0 % (0.0-4.3) 09/05/17 02:25 Baso % (Auto) 1.3 % (0.0-1.8) 09/05/17 02:25 Lymph # 0.3 K/mm3 (1.2-5.4) L 09/05/17 02:25 [place] # 0.7 K/mm3 (0.0-0.8) 09/05/17 02:25 Eos # 0.1 K/mm3 (0.0-0.4) 09/05/17 02:25 Baso # 0.1 K/mm3 (0.0-0.1) 09/05/17 02:25 Seg Neutrophils % 84.9 % (40.0-70.0) H 09/05/17 02:25 Seg Neutrophils # 6.4 K/mm3 (1.8-7.7) 09/05/17 02:25 PT 24.8 Sec. (12.2-14.9) H 09/05/17 02:25 INR 2.09 (0.87-1.13) H 09/05/17 02:25 APTT 89.1 Sec. (24.2-36.6) H* 09/04/17 09:48 Fibrinogen 306 mg/dl (211-480) 09/05/17 02:25 Heparin Anti-Xa Level 0.10 U.I./ml (0.3-0.7) L 09/05/17 02:25 Sodium 136 mmol/L (137-145) L 09/05/17 02:25 Potassium 4.9 mmol/L (3.6-5.0) 09/05/17 02:25 Chloride 99.4 mmol/L (98-107) 09/05/17 02:25 Carbon Dioxide 23 mmol/L (22-30) 09/05/17 02:25 Anion Gap 19 mmol/L 09/05/17 02:25 BUN 55 mg/dL (9-20) H 09/05/17 02:25 Creatinine 2.5 mg/dL (0.8-1.5) H 09/05/17 02:25 Estimated GFR 31 ml/min 09/05/17 02:25 BUN/Creatinine Ratio 22 % 09/05/17 02:25 Glucose 138 mg/dL (75-100) H 09/05/17 02:25 Calcium 8.9 mg/dL (8.4-10.2) 09/05/17 02:25 Total Bilirubin 0.80 mg/dL (0.1-1.2) 08/31/17 22:04 AST 32 units/L (5-40) 08/31/17 22:04 ALT 31 units/L (7-56) 08/31/17 22:04 Alkaline Phosphatase 81 units/L (35-129) 08/31/17 22:04 Troponin T 0.061 ng/mL (0.00-0.029) H 09/01/17 00:10 NT-Pro-B Natriuret Pep 5787 pg/mL (0-900) H 09/01/17 00:10 Total Protein 6.1 g/dL (6.3-8.2) L 08/31/17 22:04 Albumin 3.2 g/dL (3.9-5) L 08/31/17 22:04 Albumin/Globulin Ratio 1.1 % 08/31/17 22:04 Triglycerides 148 mg/dL (2-149) 09/01/17 00:10 Cholesterol 170 mg/dL (50-199) 09/01/17 00:10 LDL Cholesterol Direct 97 mg/dL (50-130) 09/01/17 00:10 HDL Cholesterol 45 mg/dL (40-59) 09/01/17 00:10 Cholesterol/HDL Ratio 3.77 % 09/01/17 00:10 Urine Color Yellow (Yellow) 08/31/17 23:00 Urine Turbidity Clear (Clear) 08/31/17 23:00 Urine pH 5.0 (5.0-7.0) 08/31/17 23:00 Ur Specific [place] 1.015 (1.003-1.030) 08/31/17 23:00 Urine Protein 100 mg/dl mg/dL (Negative) 08/31/17 23:00 Urine Glucose (UA) Neg mg/dL (Negative) 08/31/17 23:00 Urine Ketones Neg mg/dL (Negative) 08/31/17 23:00 Urine Blood Neg (Negative) 08/31/17 23:00 Urine Nitrite Neg (Negative) 08/31/17 23:00 Urine Bilirubin Neg (Negative) 08/31/17 23:00 Urine Urobilinogen 2.0 mg/dL (<2.0) 08/31/17 23:00 Ur Leukocyte Esterase Neg (Negative) 08/31/17 23:00 Urine WBC (Auto) 3.0 /HPF (0.0-6.0) 08/31/17 23:00 Urine RBC (Auto) 2.0 /HPF (0.0-6.0) 08/31/17 23:00 U Epithel Cells (Auto) < 1.0 /HPF (0-13.0) 08/31/17 23:00 Hyaline Casts 1 /LPF 08/31/17 23:00 Urine Mucus Few /HPF 08/31/17 23:00 Urine Total Volume 750 09/02/17 04:00 Urine Creatinine 124.5 mg/dL (0.1-20.0) H 09/02/17 04:00 Height (in) 71.0 inches 09/02/17 04:00 Weight (lb) 280.0 lbs 09/02/17 04:00 Creatinine Clearance 17 09/02/17 04:00
[2017-09-05] MEDS: TYLENOL PO SCH ×2 (18:54→23:06)
[2017-09-05] MEDS: ASPIRIN PO SCH (18:55)
[2017-09-05] MEDS: COREG PO SCH ×2 (18:55→23:05)
[2017-09-05] MEDS: MINIPRESS PO SCH ×2 (18:55→23:06)
[2017-09-05] MEDS: NEURONTIN PO SCH ×2 (18:56→23:05)
[2017-09-05] MEDS: PROSCAR PO SCH (18:56)
[2017-09-05] MEDS: ZYLOPRIM PO SCH ×2 (18:57→23:05)
[2017-09-06 04:24] LABS: Basophils # (Auto) 0.1 K/mm3 (0.0-0.1); Basophils % (Auto) 1.4 % (0.0-1.8); Eosinophils # (Auto) 0.1 K/mm3 (0.0-0.4); Eosinophils % (Auto) 1.1 % (0.0-4.3); Hematocrit 33.5 % (35.5-45.6); Hemoglobin 10.9 gm/dl (11.8-15.2); Lymphocytes # (Auto) 0.4 K/mm3 (1.2-5.4); Lymphocytes % (Auto) 5.8 % (13.4-35.0); Mean Corpuscular HGB Conc 33 % (32-34); Mean Corpuscular Hemoglobin 31 pg (28-32); Mean Corpuscular Volume 94 fl (84-94); Monocytes # (Auto) 0.5 K/mm3 (0.0-0.8); Monocytes % (Auto) 7.4 % (0.0-7.3); Platelet Count 256 K/mm3 (140-440); Red Blood Count 3.56 M/mm3 (3.65-5.03); Red Cell Distribution Width 17.2 % (13.2-15.2)
[2017-09-06 04:35] LABS: INR 3.34 (0.87-1.13)
[2017-09-06 04:45] LABS: Calcium 9.3 mg/dL (8.4-10.2)
[2017-09-06] MEDS: NACL 0.9% 1000 ML 1,000 ML IV SCH (06:44)
--- NOTE | 2017-09-06 09:08 | Progress Note ---
Subjective Principal diagnosis: DVT s/p EKOS , Severe CMP Interval history: Patient was seen today for follow-up on multiple renal related issues still remains in the ICU does not like the hospital food appetite is poor at the bedside interviewed the patient with the nurse Vitals labs intake output medications were reviewed Social history: Reviewed Allergies: Reviewed Family history: Reviewed Physical examination HEENT: Oral mucosa moist no pallor or icterus Neck: Supple no JVD Chest: Clear to auscultation anteriorly CVS: Regular rate and rhythm S1 and S2 heard Abdomen: Soft nontender no suprapubic masses no organomegaly appreciable Extremity: Dry skin less than 2-3+ peripheral edema, unchanged at this time Musculoskeletal: No joint effusion noted in knees and ankle Neurological: Alert awake Dermatology: No petechial rashes Psychiatry: No evidence of any agitation and aggression noted Assessment and plan Acute on chronic renal failure:Renal function appears to be improving, poorly compliant patient with patient's permission discussed about patient's poor renal prognosis was very unhappy to hear about his acute kidney injury. Admitted the patient does have poor eating habits and does not follow proper diet DVT status post, venogram thrombolysis and process History of myeloma which has relapsed: Patient did not follow up with his oncologist properly currently being treated and followed by Dr. Tucker Treatment of myeloma may help his kidneys possibly Renal prognosis guarded if renal function worsens patient may need dialysis: was very unhappy and said "that is not happening" even though I tried to explain her that patient's prognosis is not so good as he will be prone to poor renal perfusion due to cardiorenal injury that he may sustain in future as his ejection fraction is only 15%, she was very upset to hear about it severe cardiomyopathy ejection fraction 15% being followed by a sudden origination specialist Status post parathyroidectomy in the past for parathyroid adenoma and hypercalcemia Noncompliant patient does not follow-up with physicians properly Overall prognosis guarded to poor, discussed with and patient with patient' s permission Pertinent lab findings were discussed with patient, patient does exhibit good understanding of renal issues Objective - Vital Signs Vital signs: Vital Signs - 12hr 09/05/17 09/05/17 09/05/17 21:30 22:00 22:30 Temperature Pulse Rate 98 H 90 88 Respiratory 14 13 10 L Rate Respiratory 21 Rate [Bilateral Lower] Blood Pressure 119/70 127/73 125/70 O2 Sat by Pulse 100 99 98 Oximetry 09/05/17 09/05/17 09/05/17 23:00 23:05 23:06 Temperature Pulse Rate 87 89 89 Respiratory 14 20 Rate Respiratory Rate [Bilateral Lower] Blood Pressure 130/75 130/75 130/75 O2 Sat by Pulse 100 Oximetry 09/05/17 09/06/17 09/06/17 23:30 00:00 00:02 Temperature 98.9 F Pulse Rate 81 74 75 Respiratory 14 11 L 13 Rate Respiratory Rate [Bilateral Lower] Blood Pressure 118/56 101/59 101/59 O2 Sat by Pulse 99 98 98 Oximetry 09/06/17 09/06/17 09/06/17 00:06 00:30 01:00 Temperature Pulse Rate 71 72 Respiratory 18 14 16 Rate Respiratory Rate [Bilateral Lower] Blood Pressure 96/51 102/55 O2 Sat by Pulse 98 94 Oximetry 09/06/17 09/06/17 09/06/17 01:30 02:00 02:30 Temperature Pulse Rate 71 77 76 Respiratory 11 L 12 14 Rate Respiratory Rate [Bilateral Lower] Blood Pressure 104/51 99/50 107/60 O2 Sat by Pulse 98 99 97 Oximetry 09/06/17 09/06/17 09/06/17 03:00 03:30 04:00 Temperature 98.7 F Pulse Rate 75 76 77 Respiratory 13 11 L 11 L Rate Respiratory Rate [Bilateral Lower] Blood Pressure 110/55 118/60 126/60 O2 Sat by Pulse 96 97 99 Oximetry 09/06/17 09/06/17 09/06/17 04:30 05:00 05:30 Temperature Pulse Rate 78 79 84 Respiratory 14 13 16 Rate Respiratory Rate [Bilateral Lower] Blood Pressure 126/60 113/64 123/67 O2 Sat by Pulse 98 96 84 Oximetry 09/06/17 09/06/17 09/06/17 06:00 06:30 07:00 Temperature Pulse Rate 78 77 76 Respiratory 13 15 13 Rate Respiratory Rate [Bilateral Lower] Blood Pressure 116/62 115/63 115/63 O2 Sat by Pulse 99 100 98 Oximetry 09/06/17 09/06/17 09/06/17 07:30 08:00 08:30 Temperature Pulse Rate 76 80 75 Respiratory 14 11 L 15 Rate Respiratory Rate [Bilateral Lower] Blood Pressure 114/57 114/75 121/58 O2 Sat by Pulse 98 99 96 Oximetry 09/06/17 09:00 Temperature Pulse Rate 79 Respiratory 11 L Rate Respiratory Rate [Bilateral Lower] Blood Pressure 119/65 O2 Sat by Pulse 100 Oximetry - Lab 09/06/17 03:55 09/06/17 03:55 Most recent lab results Calcium 9.3 mg/dL (8.4-10.2) 09/06/17 03:55 Urine Creatinine 124.5 mg/dL (0.1-20.0) H 09/02/17 04:00
--- NOTE | 2017-09-06 09:39 | Progress Note ---
Assessment and Plan DVT. Status post EKOS procedure Cardiomyopathy with ejection fraction 50% Multiple myeloma Chronic kidney disease Obesity Hypertension Sleep apnea. Reportedly previously on CPAP but apparently not following treated at home Recommendations Monitor for bleeding. INR still elevated being followed, adjusted by pharmacy Monitor for fever Continue IV fluids. We'll follow nephrology/cardiology recommendations regarding IV fluid rate. I recommended adding incentive spirometry for atelectasis prevention DVT prophylaxis measures. Needs to use his CPAP at nighttime Critical care time was 31 minutes of [id number] evaluation and coordination of care Subjective Date of service: 09/06/17 Principal diagnosis: DVT s/p EKOS , Severe CMP Interval history: Denies shortness of breath or cough. No bleeding problems reported. No chest pain. No focal neurological complaints Objective Vital Signs - 12hr 09/05/17 09/05/17 09/05/17 22:00 22:30 23:00 Temperature Pulse Rate 90 88 87 Respiratory 13 10 L 14 Rate Respiratory 21 Rate [Bilateral Lower] Blood Pressure 127/73 125/70 130/75 O2 Sat by Pulse 99 98 100 Oximetry 09/05/17 09/05/17 09/05/17 23:05 23:06 23:30 Temperature Pulse Rate 89 89 81 Respiratory 20 14 Rate Respiratory Rate [Bilateral Lower] Blood Pressure 130/75 130/75 118/56 O2 Sat by Pulse 99 Oximetry 09/06/17 09/06/17 09/06/17 00:00 00:02 00:06 Temperature 98.9 F Pulse Rate 74 75 Respiratory 11 L 13 18 Rate Respiratory Rate [Bilateral Lower] Blood Pressure 101/59 101/59 O2 Sat by Pulse 98 98 Oximetry 09/06/17 09/06/17 09/06/17 00:30 01:00 01:30 Temperature Pulse Rate 71 72 71 Respiratory 14 16 11 L Rate Respiratory Rate [Bilateral Lower] Blood Pressure 96/51 102/55 104/51 O2 Sat by Pulse 98 94 98 Oximetry 09/06/17 09/06/17 09/06/17 02:00 02:30 03:00 Temperature Pulse Rate 77 76 75 Respiratory 12 14 13 Rate Respiratory Rate [Bilateral Lower] Blood Pressure 99/50 107/60 110/55 O2 Sat by Pulse 99 97 96 Oximetry 09/06/17 09/06/17 09/06/17 03:30 04:00 04:30 Temperature 98.7 F Pulse Rate 76 77 78 Respiratory 11 L 11 L 14 Rate Respiratory Rate [Bilateral Lower] Blood Pressure 118/60 126/60 126/60 O2 Sat by Pulse 97 99 98 Oximetry 09/06/17 09/06/17 09/06/17 05:00 05:30 06:00 Temperature Pulse Rate 79 84 78 Respiratory 13 16 13 Rate Respiratory Rate [Bilateral Lower] Blood Pressure 113/64 123/67 116/62 O2 Sat by Pulse 96 84 99 Oximetry 09/06/17 09/06/17 09/06/17 06:30 07:00 07:30 Temperature Pulse Rate 77 76 76 Respiratory 15 13 14 Rate Respiratory Rate [Bilateral Lower] Blood Pressure 115/63 115/63 114/57 O2 Sat by Pulse 100 98 98 Oximetry 09/06/17 09/06/17 09/06/17 08:00 08:30 09:00 Temperature Pulse Rate 80 75 79 Respiratory 11 L 15 11 L Rate Respiratory Rate [Bilateral Lower] Blood Pressure 114/75 121/58 119/65 O2 Sat by Pulse 99 96 100 Oximetry Constitutional: no acute distress, alert, other (obese. Falls asleep during conversation.) Eyes: non-icteric ENT: oropharynx moist Neck: supple, no JVD Ascultation: Bilateral: clear Cardiovascular: regular rate and rhythm Gastrointestinal: normoactive bowel sounds, non-distended Integumentary: other (current lower extremity pedal edema changes. Lines in place) Extremities: edema Neurologic: normal mental status, non-focal exam, CN II-XII normal, motor strength normal and Psychiatric: mood appropriate, affect normal CBC and BMP: 09/06/17 03:55 09/06/17 03:55 ABG, PT/INR, D-dimer: PT/INR, D-dimer PT 36.2 Sec. (12.2-14.9) H 09/06/17 03:55 INR 3.34 (0.87-1.13) H 09/06/17 03:55 Abnormal lab findings: Abnormal Labs 08/31/17 08/31/17 09/01/17 22:04 22:04 00:10 RBC Hgb Hct RDW 17.3 H Lymph % (Auto) 4.9 L [place] % (Auto) 14.4 H Baso % (Auto) Lymph # 0.3 L [place] # 0.9 H Seg Neutrophils % 78.2 H PT INR APTT Fibrinogen Heparin Anti-Xa Level Sodium Potassium 5.2 H Chloride 97.2 L BUN 52 H Creatinine 2.7 H Glucose 152 H Troponin T 0.061 H NT-Pro-B Natriuret Pep 5787 H Total Protein 6.1 L Albumin 3.2 L Urine Creatinine 09/01/17 09/01/17 09/02/17 17:43 21:24 00:18 RBC Hgb Hct RDW Lymph % (Auto) [place] % (Auto) Baso % (Auto) Lymph # [place] # Seg Neutrophils % PT 15.1 H INR APTT Fibrinogen Heparin Anti-Xa Level < 0.10 L Sodium 134 L Potassium Chloride 94.5 L BUN 52 H Creatinine 2.7 H Glucose 137 H Troponin T NT-Pro-B Natriuret Pep Total Protein Albumin Urine Creatinine 09/02/17 09/02/17 09/02/17 04:00 09:09 09:09 RBC Hgb 11.4 L Hct 35.1 L RDW 17.1 H Lymph % (Auto) 8.2 L [place] % (Auto) 13.9 H Baso % (Auto) Lymph # 0.5 L [place] # Seg Neutrophils % 73.6 H PT INR APTT Fibrinogen Heparin Anti-Xa Level Sodium 134 L Potassium Chloride 96.4 L BUN 54 H Creatinine 2.8 H Glucose 134 H Troponin T NT-Pro-B Natriuret Pep Total Protein Albumin Urine Creatinine 124.5 H 09/02/17 09/03/17 09/03/17 09:09 04:24 04:28 RBC Hgb 11.3 L Hct 33.9 L RDW Lymph % (Auto) [place] % (Auto) Baso % (Auto) Lymph # [place] # Seg Neutrophils % PT 16.0 H 15.9 H INR 1.21 H 1.20 H APTT Fibrinogen Heparin Anti-Xa Level 0.18 L Sodium Potassium Chloride BUN Creatinine Glucose Troponin T NT-Pro-B Natriuret Pep Total Protein Albumin Urine Creatinine 09/03/17 09/04/17 09/04/17 18:51 05:45 09:48 RBC Hgb Hct RDW Lymph % (Auto) [place] % (Auto) Baso % (Auto) Lymph # [place] # Seg Neutrophils % PT 18.9 H 19.2 H INR 1.49 H 1.52 H APTT 89.1 H* Fibrinogen 728 H Heparin Anti-Xa Level 0.18 L 0.27 L Sodium Potassium Chloride BUN Creatinine Glucose Troponin T NT-Pro-B Natriuret Pep Total Protein Albumin Urine Creatinine 09/04/17 09/04/17 09/04/17 09:48 09:48 20:47 RBC Hgb 11.7 L 11.1 L Hct 35.0 L RDW 17.3 H 17.3 H Lymph % (Auto) 8.0 L 4.7 L [place] % (Auto) 8.3 H 8.9 H Baso % (Auto) 2.4 H Lymph # 0.5 L 0.3 L [place] # Seg Neutrophils % 78.9 H 83.9 H PT INR APTT Fibrinogen Heparin Anti-Xa Level Sodium 134 L Potassium 5.1 H Chloride 94.7 L BUN 56 H Creatinine 2.8 H Glucose 130 H Troponin T NT-Pro-B Natriuret Pep Total Protein Albumin Urine Creatinine 09/04/17 09/05/17 09/05/17 20:47 02:25 02:25 RBC 3.55 L Hgb 10.8 L Hct 32.7 L RDW 17.3 H Lymph % (Auto) 4.1 L [place] % (Auto) 8.7 H Baso % (Auto) Lymph # 0.3 L [place] # Seg Neutrophils % 84.9 H PT 24.8 H INR 2.09 H APTT Fibrinogen Heparin Anti-Xa Level < 0.10 L 0.10 L Sodium Potassium Chloride BUN Creatinine Glucose Troponin T NT-Pro-B Natriuret Pep Total Protein Albumin Urine Creatinine 09/05/17 09/06/17 09/06/17 02:25 03:55 03:55 RBC Hgb Hct RDW Lymph % (Auto) [place] % (Auto) Baso % (Auto) Lymph # [place] # Seg Neutrophils % PT 36.2 H INR 3.34 H APTT Fibrinogen Heparin Anti-Xa Level Sodium 136 L Potassium 5.3 H Chloride BUN 55 H 54 H Creatinine 2.5 H 2.4 H Glucose 138 H 115 H Troponin T NT-Pro-B Natriuret Pep Total Protein Albumin Urine Creatinine 09/06/17 03:55 RBC 3.56 L Hgb 10.9 L Hct 33.5 L RDW 17.2 H Lymph % (Auto) 5.8 L [place] % (Auto) 7.4 H Baso % (Auto) Lymph # 0.4 L [place] # Seg Neutrophils % 84.3 H PT INR APTT Fibrinogen Heparin Anti-Xa Level Sodium Potassium Chloride BUN Creatinine Glucose Troponin T NT-Pro-B Natriuret Pep Total Protein Albumin Urine Creatinine
[2017-09-06] MEDS: NEURONTIN PO SCH ×2 (11:09→21:43)
[2017-09-06] MEDS: COREG PO SCH ×2 (11:09→21:47)
[2017-09-06] MEDS: ZYLOPRIM PO SCH ×2 (11:10→21:42)
[2017-09-06] MEDS: MINIPRESS PO SCH ×2 (11:10→21:47)
[2017-09-06] MEDS: TYLENOL PO SCH ×2 (11:10→21:43)
[2017-09-06] MEDS: ASPIRIN PO SCH (11:10)
[2017-09-06] MEDS: PROSCAR PO SCH (11:11)
--- NOTE | 2017-09-06 14:53 | Hem/Onc Progress Note ---
Assessment and Plan labs stable conyinue care as per vascular cont coumadin Subjective Date of service: 09/06/17 Interval history: Patient status post E Kos. Still having pain but seems to be better. Objective - Constitutional Vitals: Last Vital Signs Temp 98.7 F 09/06/17 04:00 Pulse 79 09/06/17 09:00 Resp 11 L 09/06/17 09:00 BP 119/65 09/06/17 09:00 Pulse Ox 100 09/06/17 09:00 General appearance: mild distress Performance status: 3-limited selfcare - Respiratory Respiratory effort: Positive: normal Respiratory: bilateral: diminished - Cardiovascular Rhythm: regular - Gastrointestinal General gastrointestinal: Present: soft - Labs Lab Results: Laboratory Results - last 24 hr 09/06/17 09/06/17 09/06/17 03:55 03:55 03:55 WBC 7.2 RBC 3.56 L Hgb 10.9 L Hct 33.5 L MCV 94 MCH 31 MCHC 33 RDW 17.2 H Plt Count 256 Lymph % (Auto) 5.8 L [place] % (Auto) 7.4 H Eos % (Auto) 1.1 Baso % (Auto) 1.4 Lymph # 0.4 L [place] # 0.5 Eos # 0.1 Baso # 0.1 Seg Neutrophils % 84.3 H Seg Neutrophils # 6.1 PT 36.2 H INR 3.34 H Sodium 139 Potassium 5.3 H Chloride 100.7 Carbon Dioxide 23 Anion Gap 21 BUN 54 H Creatinine 2.4 H Estimated GFR 33 BUN/Creatinine Ratio 23 Glucose 115 H Calcium 9.3
--- NOTE | 2017-09-06 14:58 | Progress Note ---
Assessment and Plan Assessment: Chronic systolic heart failure - stable; no current clinical evidence of acutely decompensated HF CMP - EF 15-20% Bi-V AICD in situ Bilateral DVT H/o DVT s/p IVC filter CKD H/o multiple myeloma H/o TIA EFE Morbid obesity Plan: S/p BLE angioplasty and thrombectomy and EKOS removal yesterday per vascular. INR 3.34 this AM. Coumadin held, heparin gtt d/c'd. Currently stable cardiac status. Await vascular recommendations. The patient has been seen in conjunction with Dr. Ibarra who agrees with the assessment and plan of care. Subjective Date of service: 09/06/17 Principal diagnosis: DVT s/p EKOS , Severe CMP Interval history: pt resting comfortably in concepcion current cardiac complaints. s/p EKOS removal yesterday. Objective Last Vital Signs Temp 98.7 F 09/06/17 04:00 Pulse 79 09/06/17 09:00 Resp 11 L 09/06/17 09:00 BP 119/65 09/06/17 09:00 Pulse Ox 100 09/06/17 09:00 - Physical Examination General: No Apparent Distress HEENT: Positive: PERRL Neck: Positive: trachea midline Cardiac: Positive: Reg Rate and Rhythm, S1/S2 Lungs: Positive: clear to auscultation Neuro: Positive: Grossly Intact Abdomen: Positive: Unremarkable Extremities: Present: +3 Edema - Labs and Meds Coagulation 09/06/17 Range/Units 03:55 PT 36.2 H (12.2-14.9) Sec. INR 3.34 H (0.87-1.13) CBC 09/06/17 Range/Units 03:55 WBC 7.2 (4.5-11.0) K/mm3 RBC 3.56 L (3.65-5.03) M/mm3 Hgb 10.9 L (11.8-15.2) gm/dl Hct 33.5 L (35.5-45.6) % Plt Count 256 (140-440) K/mm3 Lymph # 0.4 L (1.2-5.4) K/mm3 [place] # 0.5 (0.0-0.8) K/mm3 Eos # 0.1 (0.0-0.4) K/mm3 Baso # 0.1 (0.0-0.1) K/mm3 Comprehensive Metabolic Panel 09/06/17 Range/Units 03:55 Sodium 139 (137-145) mmol/L Potassium 5.3 H (3.6-5.0) mmol/L Chloride 100.7 (98-107) mmol/L Carbon Dioxide 23 (22-30) mmol/L BUN 54 H (9-20) mg/dL Creatinine 2.4 H (0.8-1.5) mg/dL Glucose 115 H (75-100) mg/dL Calcium 9.3 (8.4-10.2) mg/dL
--- NOTE | 2017-09-06 15:01 | Event Note ---
Date: 09/06/17 INR high- coumadin on hold and managed by pharmacy
[2017-09-06] MEDS ORDERED: COUMADIN NO DOSE TODAY PO ONE (17:00)
--- NOTE | 2017-09-06 17:06 | Progress Note ---
Assessment and Plan Pt s/p bilat lower ext thrombolysis/mechanical thrombectomy. Pt feels better, but continues to have bilat lower ext swelling. H/H 10.9/33.5. Kidney fxn appears to have remained stable thus far following the procedures. He has multiple chronic medical conditions. His SBP is ~100. Will defer decision to transfer out of the ICU to Branch Office Manager, cardiology, and hospitalist. He appears to be doing well from a procedural stand point. - Patient Problems (1) DVT, bilateral lower limbs Current Visit: Yes Status: Acute (2) Chronic systolic CHF (congestive heart failure) Current Visit: Yes Status: Chronic (3) Cardiac LV ejection fraction <20% Current Visit: Yes Status: Acute (4) Chronic renal insufficiency Current Visit: No Status: Acute (5) Hypertension Current Visit: No Status: Acute (6) CKD (chronic kidney disease) stage 3, GFR 30-59 ml/min Current Visit: No Status: Chronic Subjective Date of service: 09/06/17 Principal diagnosis: DVT s/p EKOS , Severe CMP Interval history: Pt awake and alert. He states his legs feel better since the procedure. Pt without specific complaint at present. Objective - Constitutional Vitals: Vital Signs - 12hr 09/06/17 09/06/17 09/06/17 05:30 06:00 06:30 Pulse Rate 84 78 77 Respiratory 16 13 15 Rate Blood Pressure 123/67 116/62 115/63 O2 Sat by Pulse 84 99 100 Oximetry 09/06/17 09/06/17 09/06/17 07:00 07:30 08:00 Pulse Rate 76 76 80 Respiratory 13 14 11 L Rate Blood Pressure 115/63 114/57 114/75 O2 Sat by Pulse 98 98 99 Oximetry 09/06/17 09/06/17 09/06/17 08:30 09:00 09:30 Pulse Rate 75 79 77 Respiratory 15 11 L 13 Rate Blood Pressure 121/58 119/65 124/62 O2 Sat by Pulse 96 100 98 Oximetry 09/06/17 09/06/17 09/06/17 10:00 10:30 11:00 Pulse Rate 81 79 77 Respiratory 13 16 13 Rate Blood Pressure 134/62 109/67 112/67 O2 Sat by Pulse 100 98 98 Oximetry 09/06/17 09/06/17 09/06/17 11:30 12:00 12:30 Pulse Rate 78 72 69 Respiratory 15 16 9 L Rate Blood Pressure 111/66 93/56 89/50 O2 Sat by Pulse 100 92 98 Oximetry 09/06/17 09/06/17 09/06/17 13:00 13:30 14:00 Pulse Rate 68 70 65 Respiratory 13 15 13 Rate Blood Pressure 96/53 103/51 96/52 O2 Sat by Pulse 100 96 100 Oximetry 09/06/17 09/06/17 09/06/17 14:30 15:00 15:30 Pulse Rate 66 71 67 Respiratory 10 L 17 11 L Rate Blood Pressure 104/59 100/66 109/60 O2 Sat by Pulse 100 96 99 Oximetry General appearance: Present: no acute distress - EENT Eyes: EOM intact ENT: hearing intact - Respiratory Respiratory effort: normal (unlabored at rest) Extremities: abnormal (bilat bandages to pop intact, continued bilat lower ext swelling.) - Neurologic Neurologic: no focal deficits - Psychiatric Psychiatric: appropriate mood/affect, intact judgment & insight, cooperative - Labs CBC & Chem 7: 09/06/17 03:55 09/06/17 03:55 Labs: Abnormal lab results 09/06/17 09/06/17 09/06/17 Range/Units 03:55 03:55 03:55 RBC 3.56 L (3.65-5.03) M/mm3 Hgb 10.9 L (11.8-15.2) gm/dl Hct 33.5 L (35.5-45.6) % RDW 17.2 H (13.2-15.2) % Lymph % (Auto) 5.8 L (13.4-35.0) % [place] % (Auto) 7.4 H (0.0-7.3) % Lymph # 0.4 L (1.2-5.4) K/mm3 Seg Neutrophils % 84.3 H (40.0-70.0) % PT 36.2 H (12.2-14.9) Sec. INR 3.34 H (0.87-1.13) Potassium 5.3 H (3.6-5.0) mmol/L BUN 54 H (9-20) mg/dL Creatinine 2.4 H (0.8-1.5) mg/dL Glucose 115 H (75-100) mg/dL
--- NOTE | 2017-09-06 18:45 | Progress Note ---
Assessment and Plan Assessment and plan: Acute on chronic CHF exacerbation - Cardiology is following - AICD in situ - Currently stable CKD - Nephrology consulted Multiple myeloma, back pain - Oncology consult appreciated Bilateral lower extremity DVT, history of DVT status post filter -Patient was on heparin and Coumadin, INR this morning is 3.6, discontinued heparin and hold Coumadin -Vascular surgery did EKOS -baloon angioplasty and thrombectomy was done in the LE veins DVT prophylaxis -None because INR is supratherapeutic Disposition -Continue inpatient care History Interval history: Patient was seen and evaluated this morning, bilateral lower extremity pain is getting better. S/P EKOS Hospitalist Physical - Physical exam Narrative exam: Not in cardiopulmonary distress. The patient is obese. Vital signs as documented. Head exam is unremarkable. No scleral icterus . Neck is without jugular venous distension, thyromegaly, or carotid bruits. Lungs are clear to auscultation. Cardiac exam reveals regular rate and Rhythm. First and second heart sounds normal. No murmurs, rubs or gallops. Abdominal exam reveals normal bowel sounds, no masses, no organomegaly and no aortic enlargement. Extremities are +1 pedal and pretibial edema. EDUCATION REPORTER: Alert and oriented 3. No focal weakness. - Constitutional Vitals: Temp Pulse Resp BP Pulse Ox 98.7 F 75 10 L 111/69 99 09/06/17 04:00 09/06/17 17:00 09/06/17 17:00 09/06/17 17:00 09/06/17 17:00 General appearance: Present: no acute distress Results - Labs CBC & Chem 7: 09/06/17 03:55 09/06/17 03:55 Labs: Laboratory Last Values WBC 7.2 K/mm3 (4.5-11.0) 09/06/17 03:55 RBC 3.56 M/mm3 (3.65-5.03) L 09/06/17 03:55 Hgb 10.9 gm/dl (11.8-15.2) L 09/06/17 03:55 Hct 33.5 % (35.5-45.6) L 09/06/17 03:55 MCV 94 fl (84-94) 09/06/17 03:55 MCH 31 pg (28-32) 09/06/17 03:55 MCHC 33 % (32-34) 09/06/17 03:55 RDW 17.2 % (13.2-15.2) H 09/06/17 03:55 Plt Count 256 K/mm3 (140-440) 09/06/17 03:55 Lymph % (Auto) 5.8 % (13.4-35.0) L 09/06/17 03:55 [place] % (Auto) 7.4 % (0.0-7.3) H 09/06/17 03:55 Eos % (Auto) 1.1 % (0.0-4.3) 09/06/17 03:55 Baso % (Auto) 1.4 % (0.0-1.8) 09/06/17 03:55 Lymph # 0.4 K/mm3 (1.2-5.4) L 09/06/17 03:55 [place] # 0.5 K/mm3 (0.0-0.8) 09/06/17 03:55 Eos # 0.1 K/mm3 (0.0-0.4) 09/06/17 03:55 Baso # 0.1 K/mm3 (0.0-0.1) 09/06/17 03:55 Seg Neutrophils % 84.3 % (40.0-70.0) H 09/06/17 03:55 Seg Neutrophils # 6.1 K/mm3 (1.8-7.7) 09/06/17 03:55 PT 36.2 Sec. (12.2-14.9) H 09/06/17 03:55 INR 3.34 (0.87-1.13) H 09/06/17 03:55 APTT 89.1 Sec. (24.2-36.6) H* 09/04/17 09:48 Fibrinogen 306 mg/dl (211-480) 09/05/17 02:25 Heparin Anti-Xa Level 0.10 U.I./ml (0.3-0.7) L 09/05/17 02:25 Sodium 139 mmol/L (137-145) 09/06/17 03:55 Potassium 5.3 mmol/L (3.6-5.0) H 09/06/17 03:55 Chloride 100.7 mmol/L (98-107) 09/06/17 03:55 Carbon Dioxide 23 mmol/L (22-30) 09/06/17 03:55 Anion Gap 21 mmol/L 09/06/17 03:55 BUN 54 mg/dL (9-20) H 09/06/17 03:55 Creatinine 2.4 mg/dL (0.8-1.5) H 09/06/17 03:55 Estimated GFR 33 ml/min 09/06/17 03:55 BUN/Creatinine Ratio 23 % 09/06/17 03:55 Glucose 115 mg/dL (75-100) H 09/06/17 03:55 Calcium 9.3 mg/dL (8.4-10.2) 09/06/17 03:55 Total Bilirubin 0.80 mg/dL (0.1-1.2) 08/31/17 22:04 AST 32 units/L (5-40) 08/31/17 22:04 ALT 31 units/L (7-56) 08/31/17 22:04 Alkaline Phosphatase 81 units/L (35-129) 08/31/17 22:04 Troponin T 0.061 ng/mL (0.00-0.029) H 09/01/17 00:10 NT-Pro-B Natriuret Pep 5787 pg/mL (0-900) H 09/01/17 00:10 Total Protein 6.1 g/dL (6.3-8.2) L 08/31/17 22:04 Albumin 3.2 g/dL (3.9-5) L 08/31/17 22:04 Albumin/Globulin Ratio 1.1 % 08/31/17 22:04 Triglycerides 148 mg/dL (2-149) 09/01/17 00:10 Cholesterol 170 mg/dL (50-199) 09/01/17 00:10 LDL Cholesterol Direct 97 mg/dL (50-130) 09/01/17 00:10 HDL Cholesterol 45 mg/dL (40-59) 09/01/17 00:10 Cholesterol/HDL Ratio 3.77 % 09/01/17 00:10 Urine Color Yellow (Yellow) 08/31/17 23:00 Urine Turbidity Clear (Clear) 08/31/17 23:00 Urine pH 5.0 (5.0-7.0) 08/31/17 23:00 Ur Specific [place] 1.015 (1.003-1.030) 08/31/17 23:00 Urine Protein 100 mg/dl mg/dL (Negative) 08/31/17 23:00 Urine Glucose (UA) Neg mg/dL (Negative) 08/31/17 23:00 Urine Ketones Neg mg/dL (Negative) 08/31/17 23:00 Urine Blood Neg (Negative) 08/31/17 23:00 Urine Nitrite Neg (Negative) 08/31/17 23:00 Urine Bilirubin Neg (Negative) 08/31/17 23:00 Urine Urobilinogen 2.0 mg/dL (<2.0) 08/31/17 23:00 Ur Leukocyte Esterase Neg (Negative) 08/31/17 23:00 Urine WBC (Auto) 3.0 /HPF (0.0-6.0) 08/31/17 23:00 Urine RBC (Auto) 2.0 /HPF (0.0-6.0) 08/31/17 23:00 U Epithel Cells (Auto) < 1.0 /HPF (0-13.0) 08/31/17 23:00 Hyaline Casts 1 /LPF 08/31/17 23:00 Urine Mucus Few /HPF 08/31/17 23:00 Urine Total Volume 750 09/02/17 04:00 Urine Creatinine 124.5 mg/dL (0.1-20.0) H 09/02/17 04:00 Height (in) 71.0 inches 09/02/17 04:00 Weight (lb) 280.0 lbs 09/02/17 04:00 Creatinine Clearance 17 09/02/17 04:00
[2017-09-07 04:37] LABS: Hematocrit 33.3 % (35.5-45.6); Hemoglobin 10.5 gm/dl (11.8-15.2)
[2017-09-07 04:50] LABS: INR 2.77 (0.87-1.13)
[2017-09-07 04:55] LABS: Calcium 9.1 mg/dL (8.4-10.2)
--- NOTE | 2017-09-07 09:32 | Hem/Onc Progress Note ---
Assessment and Plan labs stable continue care as per vascular cont coumadin to keep INR between 2 and 3 Subjective Date of service: 09/07/17 Interval history: Patient status post E Kos. Still having pain but seems to be better. Feels depressed today Objective - Constitutional Vitals: Last Vital Signs Temp 98.0 F 09/07/17 08:00 Pulse 83 09/07/17 09:01 Resp 15 09/07/17 09:01 BP 127/75 09/07/17 09:01 Pulse Ox 97 09/07/17 09:01 Performance status: 3-limited selfcare - Neck Neck: supple - Respiratory Respiratory effort: Positive: normal Respiratory: bilateral: diminished - Cardiovascular Rhythm: regular Extremities: abnormal (bilateral edema) - Gastrointestinal General gastrointestinal: Present: soft - Labs Lab Results: Laboratory Results - last 24 hr 09/07/17 09/07/17 09/07/17 03:21 03:21 03:21 Hgb 10.5 L Hct 33.3 L Plt Count 249 PT 31.2 H INR 2.77 H Sodium 140 Potassium 5.7 H Chloride 104.0 Carbon Dioxide 24 Anion Gap 18 BUN 52 H Creatinine 2.3 H Estimated GFR 34 BUN/Creatinine Ratio 23 Glucose 108 H Calcium 9.1
--- NOTE | 2017-09-07 09:50 | Progress Note ---
Assessment and Plan Lower extremities DVT. Status post EKOS procedure,thrombolysis Cardiomyopathy with ejection fraction 50% Multiple myeloma Chronic kidney disease Obesity Hypertension Sleep apnea. Reportedly previously on CPAP but apparently not following treated at home Recommendations Monitor for fever Continue IV fluids. If OK with consultants, consider tranfer to floor I recommended adding incentive spirometry for atelectasis prevention Needs to use his CPAP at nighttime Critical care time was 31 minutes of [id number] evaluation and coordination of care Subjective Date of service: 09/07/17 Principal diagnosis: DVT s/p EKOS , Severe CMP Interval history: No complaints Objective Vital Signs - 12hr 09/06/17 09/06/17 09/06/17 22:01 22:31 23:01 Temperature Pulse Rate 71 71 70 Pulse Rate [ From Monitor] Pulse Rate [ Right Radial] Respiratory 15 16 17 Rate Blood Pressure 99/54 99/54 99/54 O2 Sat by Pulse Oximetry 09/06/17 09/06/17 09/07/17 23:31 23:51 00:00 Temperature 98.4 F Pulse Rate 69 68 70 Pulse Rate [ From Monitor] Pulse Rate [ 74 Right Radial] Respiratory 14 17 13 Rate Blood Pressure 99/54 99/54 86/49 O2 Sat by Pulse Oximetry 09/07/17 09/07/17 09/07/17 00:30 01:00 01:30 Temperature Pulse Rate 69 70 68 Pulse Rate [ From Monitor] Pulse Rate [ Right Radial] Respiratory 14 14 17 Rate Blood Pressure 104/62 104/62 109/63 O2 Sat by Pulse Oximetry 09/07/17 09/07/17 09/07/17 02:00 02:30 03:00 Temperature Pulse Rate 67 70 68 Pulse Rate [ From Monitor] Pulse Rate [ Right Radial] Respiratory 17 13 12 Rate Blood Pressure 107/63 101/71 90/63 O2 Sat by Pulse Oximetry 09/07/17 09/07/17 09/07/17 03:31 04:00 04:30 Temperature 98 F Pulse Rate 72 69 71 Pulse Rate [ From Monitor] Pulse Rate [ Right Radial] Respiratory 16 13 16 Rate Blood Pressure 75/37 115/63 118/64 O2 Sat by Pulse Oximetry 09/07/17 09/07/17 09/07/17 05:00 05:30 06:00 Temperature Pulse Rate 74 71 68 Pulse Rate [ From Monitor] Pulse Rate [ Right Radial] Respiratory 16 18 15 Rate Blood Pressure 118/64 112/73 128/78 O2 Sat by Pulse Oximetry 09/07/17 09/07/17 09/07/17 06:31 07:01 07:30 Temperature Pulse Rate 81 76 79 Pulse Rate [ From Monitor] Pulse Rate [ Right Radial] Respiratory 16 17 14 Rate Blood Pressure 122/79 122/79 127/78 O2 Sat by Pulse 100 Oximetry 09/07/17 09/07/17 09/07/17 08:00 08:31 09:01 Temperature 98.0 F Pulse Rate 73 84 83 Pulse Rate [ 83 From Monitor] Pulse Rate [ Right Radial] Respiratory 14 14 15 Rate Blood Pressure 125/69 127/75 127/75 O2 Sat by Pulse 99 98 97 Oximetry Constitutional: no acute distress, alert, asleep, other (obese. Falls asleep during conversation.) Eyes: non-icteric ENT: oropharynx moist Neck: supple, no JVD Ascultation: Bilateral: clear Cardiovascular: regular rate and rhythm Gastrointestinal: normoactive bowel sounds, non-distended Integumentary: normal Extremities: edema Neurologic: normal mental status, non-focal exam, CN II-XII normal, motor strength normal and Psychiatric: mood appropriate, affect normal CBC and BMP: 09/07/17 03:21 09/07/17 03:21 ABG, PT/INR, D-dimer: PT/INR, D-dimer PT 31.2 Sec. (12.2-14.9) H 09/07/17 03:21 INR 2.77 (0.87-1.13) H 09/07/17 03:21 Abnormal lab findings: Abnormal Labs 08/31/17 08/31/17 09/01/17 22:04 22:04 00:10 RBC Hgb Hct RDW 17.3 H Lymph % (Auto) 4.9 L [place] % (Auto) 14.4 H Baso % (Auto) Lymph # 0.3 L [place] # 0.9 H Seg Neutrophils % 78.2 H PT INR APTT Fibrinogen Heparin Anti-Xa Level Sodium Potassium 5.2 H Chloride 97.2 L BUN 52 H Creatinine 2.7 H Glucose 152 H Troponin T 0.061 H NT-Pro-B Natriuret Pep 5787 H Total Protein 6.1 L Albumin 3.2 L Urine Creatinine 09/01/17 09/01/17 09/02/17 17:43 21:24 00:18 RBC Hgb Hct RDW Lymph % (Auto) [place] % (Auto) Baso % (Auto) Lymph # [place] # Seg Neutrophils % PT 15.1 H INR APTT Fibrinogen Heparin Anti-Xa Level < 0.10 L Sodium 134 L Potassium [place] 94.5 L BUN 52 H Creatinine 2.7 H Glucose 137 H Troponin T NT-Pro-B Natriuret Pep Total Protein Albumin Urine Creatinine 09/02/17 09/02/17 09/02/17 04:00 09:09 09:09 RBC Hgb 11.4 L Hct 35.1 L RDW 17.1 H Lymph % (Auto) 8.2 L [place] % (Auto) 13.9 H Baso % (Auto) Lymph # 0.5 L [place] # Seg Neutrophils % 73.6 H PT INR APTT Fibrinogen Heparin Anti-Xa Level Sodium 134 L Potassium [place] 96.4 L BUN 54 H Creatinine 2.8 H Glucose 134 H Troponin T NT-Pro-B Natriuret Pep Total Protein Albumin Urine Creatinine 124.5 H 09/02/17 09/03/17 09/03/17 09:09 04:24 04:28 RBC Hgb 11.3 L Hct 33.9 L RDW Lymph % (Auto) [place] % (Auto) Baso % (Auto) Lymph # [place] # Seg Neutrophils % PT 16.0 H 15.9 H INR 1.21 H 1.20 H APTT Fibrinogen Heparin Anti-Xa Level 0.18 L Sodium Potassium Chloride BUN Creatinine Glucose Troponin T NT-Pro-B Natriuret Pep Total Protein Albumin Urine Creatinine 09/03/17 09/04/17 09/04/17 18:51 05:45 09:48 RBC Hgb Hct RDW Lymph % (Auto) [place] % (Auto) Baso % (Auto) Lymph # [place] # Seg Neutrophils % PT 18.9 H 19.2 H INR 1.49 H 1.52 H APTT 89.1 H* Fibrinogen 728 H Heparin Anti-Xa Level 0.18 L 0.27 L Sodium Potassium Chloride BUN Creatinine Glucose Troponin T NT-Pro-B Natriuret Pep Total Protein Albumin Urine Creatinine 09/04/17 09/04/17 09/04/17 09:48 09:48 20:47 RBC Hgb 11.7 L 11.1 L Hct 35.0 L RDW 17.3 H 17.3 H Lymph % (Auto) 8.0 L 4.7 L [place] % (Auto) 8.3 H 8.9 H Baso % (Auto) 2.4 H Lymph # 0.5 L 0.3 L [place] # Seg Neutrophils % 78.9 H 83.9 H PT INR APTT Fibrinogen Heparin Anti-Xa Level Sodium 134 L Potassium 5.1 H Chloride 94.7 L BUN 56 H Creatinine 2.8 H Glucose 130 H Troponin T NT-Pro-B Natriuret Pep Total Protein Albumin Urine Creatinine 09/04/17 09/05/17 09/05/17 20:47 02:25 02:25 RBC 3.55 L Hgb 10.8 L Hct 32.7 L RDW 17.3 H Lymph % (Auto) 4.1 L [place] % (Auto) 8.7 H Baso % (Auto) Lymph # 0.3 L [place] # Seg Neutrophils % 84.9 H PT 24.8 H INR 2.09 H APTT Fibrinogen Heparin Anti-Xa Level < 0.10 L 0.10 L Sodium Potassium Chloride BUN Creatinine Glucose Troponin T NT-Pro-B Natriuret Pep Total Protein Albumin Urine Creatinine 09/05/17 09/06/17 09/06/17 02:25 03:55 03:55 RBC Hgb Hct RDW Lymph % (Auto) [place] % (Auto) Baso % (Auto) Lymph # [place] # Seg Neutrophils % PT 36.2 H INR 3.34 H APTT Fibrinogen Heparin Anti-Xa Level Sodium 136 L Potassium 5.3 H Chloride BUN 55 H 54 H Creatinine 2.5 H 2.4 H Glucose 138 H 115 H Troponin T NT-Pro-B Natriuret Pep Total Protein Albumin Urine Creatinine 09/06/17 09/07/17 09/07/17 03:55 03:21 03:21 RBC 3.56 L Hgb 10.9 L 10.5 L Hct 33.5 L 33.3 L RDW 17.2 H Lymph % (Auto) 5.8 L [place] % (Auto) 7.4 H Baso % (Auto) Lymph # 0.4 L [place] # Seg Neutrophils % 84.3 H PT 31.2 H INR 2.77 H APTT Fibrinogen Heparin Anti-Xa Level Sodium Potassium Chlor[place] BUN Creatinine Glucose Troponin T NT-Pro-B Natriuret Pep Total Protein Albumin Urine Creatinine 09/07/17 03:21 RBC Hgb Hct RDW Lymph % (Auto) [place] % (Auto) Baso % (Auto) Lymph # [place] # Seg Neutrophils % PT INR APTT Fibrinogen Heparin Anti-Xa Level Sodium Potassium 5.7 H Chloride BUN 52 H Creatinine 2.3 H Glucose 108 H Troponin T NT-Pro-B Natriuret Pep Total Protein Albumin Urine Creatinine
[2017-09-07] MEDS: ZYLOPRIM PO SCH ×2 (09:59→21:32)
[2017-09-07] MEDS: NEURONTIN PO SCH ×2 (09:59→21:32)
[2017-09-07] MEDS: TYLENOL PO SCH ×2 (09:59→21:51)
[2017-09-07] MEDS: MINIPRESS PO SCH ×2 (10:00→21:31)
[2017-09-07] MEDS: COREG PO SCH ×2 (10:00→21:31)
[2017-09-07] MEDS: ASPIRIN PO SCH (10:00)
[2017-09-07] MEDS: PROSCAR PO SCH (10:01)
--- NOTE | 2017-09-07 10:35 | Progress Note ---
Assessment and Plan Assessment: Chronic systolic heart failure - stable; no current clinical evidence of acutely decompensated HF CMP - EF 15-20% Bi-V AICD in situ Bilateral DVT H/o DVT s/p IVC filter CKD H/o multiple myeloma H/o TIA EFE Morbid obesity Plan: INR therapeutic this AM. Currently stable cardiac status. Pt may tx out of ICU to telemetry from cardiology standpoint. Await vascular recommendations. Nothing further to add from cardiac perspective. Will sign off. Please call with questions/concerns or for re-evaluation. Follow up in our [place] office with Dr. Frias on 09/17/2017 @ 2:30PM. The patient has been seen in conjunction with Dr. Ibarra who agrees with the assessment and plan of care. Subjective Date of service: 09/07/17 Principal diagnosis: DVT s/p EKOS , Severe CMP Interval history: pt resting comfortably in bed, no current cardiac complaints. c/o BLE pain this AM and state that BLE swelling is not improving. at bedside. Objective Last Vital Signs Temp 98.0 F 09/07/17 08:00 Pulse 80 09/07/17 10:00 Resp 15 09/07/17 09:01 BP 106/56 09/07/17 10:00 Pulse Ox 97 09/07/17 09:01 - Physical Examination General: No Apparent Distress HEENT: Positive: PERRL Neck: Positive: trachea midline Cardiac: Positive: Reg Rate and Rhythm, S1/S2 Lungs: Positive: clear to auscultation Neuro: Positive: Grossly Intact Abdomen: Positive: Unremarkable Extremities: Present: +3 Edema - Labs and Meds Coagulation 09/07/17 Range/Units 03:21 PT 31.2 H (12.2-14.9) Sec. INR 2.77 H (0.87-1.13) CBC 09/07/17 Range/Units 03:21 Hgb 10.5 L (11.8-15.2) gm/dl Hct 33.3 L (35.5-45.6) % Plt Count 249 (140-440) K/mm3 Comprehensive Metabolic Panel 09/07/17 Range/Units 03:21 Sodium 140 (137-145) mmol/L Potassium 5.7 H (3.6-5.0) mmol/L Chloride 104.0 (98-107) mmol/L Carbon Dioxide 24 (22-30) mmol/L BUN 52 H (9-20) mg/dL Creatinine 2.3 H (0.8-1.5) mg/dL Glucose 108 H (75-100) mg/dL Calcium 9.1 (8.4-10.2) mg/dL
[2017-09-07] MEDS ORDERED: KIONEX PO ONE ×2 (12:06→17:00)
--- NOTE | 2017-09-07 12:06 | Progress Note ---
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 * DVT * Myeloma * Hyperkalemia * Cardiomyopahty EF 15% * S/p parathyroidectomy Plan: * daily lytes, cr stable today * treat k medically * renal diet * avoid nephrotoxins * strict i/os * lytes daily * diuresis prn * high risk for need for BACK PANEL PADDER, may have myeloma kidney Subjective Date of service: 09/07/17 Principal diagnosis: DVT s/p EKOS , Severe CMP Interval history: resting well today Objective - Exam Narrative Exam: HEENT: Oral mucosa moist no pallor or icterus Neck: Supple no JVD Chest: Clear to auscultation anteriorly CVS: Regular rate and rhythm S1 and S2 heard Abdomen: Soft nontender no suprapubic masses no organomegaly appreciable Extremity: Dry skin less than 2-3+ peripheral edema, unchanged at this time Musculoskeletal: No joint effusion noted in knees and ankle Neurological: Alert awake Dermatology: No petechial rashes Psychiatry: No evidence of any agitation and aggression noted - Vital Signs Vital signs: Vital Signs - 12hr 09/07/17 09/07/17 09/07/17 00:30 01:00 01:30 Temperature Pulse Rate 69 70 68 Pulse Rate [ From Monitor] Respiratory 14 14 17 Rate Blood Pressure 104/62 104/62 109/63 O2 Sat by Pulse Oximetry 09/07/17 09/07/17 09/07/17 02:00 02:30 03:00 Temperature Pulse Rate 67 70 68 Pulse Rate [ From Monitor] Respiratory 17 13 12 Rate Blood Pressure 107/63 101/71 90/63 O2 Sat by Pulse Oximetry 09/07/17 09/07/17 09/07/17 03:31 04:00 04:30 Temperature 98 F Pulse Rate 72 69 71 Pulse Rate [ From Monitor] Respiratory 16 13 16 Rate Blood Pressure 75/37 115/63 118/64 O2 Sat by Pulse Oximetry 09/07/17 09/07/17 09/07/17 05:00 05:30 06:00 Temperature Pulse Rate 74 71 68 Pulse Rate [ From Monitor] Respiratory 16 18 15 Rate Blood Pressure 118/64 112/73 128/78 O2 Sat by Pulse Oximetry 09/07/17 09/07/17 09/07/17 06:31 07:01 07:30 Temperature Pulse Rate 81 76 79 Pulse Rate [ From Monitor] Respiratory 16 17 14 Rate Blood Pressure 122/79 122/79 127/78 O2 Sat by Pulse 100 Oximetry 09/07/17 09/07/17 09/07/17 08:00 08:31 09:01 Temperature 98.0 F Pulse Rate 73 84 83 Pulse Rate [ 83 From Monitor] Respiratory 14 14 15 Rate Blood Pressure 125/69 127/75 127/75 O2 Sat by Pulse 99 98 97 Oximetry 09/07/17 09/07/17 09/07/17 09:31 10:00 10:01 Temperature Pulse Rate 80 80 83 Pulse Rate [ From Monitor] Respiratory 14 17 Rate Blood Pressure 106/56 106/56 105/63 O2 Sat by Pulse 96 100 Oximetry 09/07/17 09/07/17 10:30 11:00 Temperature Pulse Rate 75 74 Pulse Rate [ From Monitor] Respiratory 16 17 Rate Blood Pressure 111/68 102/62 O2 Sat by Pulse 100 91 Oximetry - Lab 09/07/17 03:21 09/07/17 03:21 Most recent lab results Calcium 9.1 mg/dL (8.4-10.2) 09/07/17 03:21 Urine Creatinine 124.5 mg/dL (0.1-20.0) H 09/02/17 04:00
--- NOTE | 2017-09-07 15:39 | Progress Note ---
Assessment and Plan Assessment and plan: Acute on chronic CHF exacerbation - Cardiology is following - AICD in situ - Currently stable CKD - Nephrology consulted Multiple myeloma, back pain - Oncology consult appreciated Bilateral lower extremity DVT, history of DVT status post filter -Patient was on heparin and Coumadin, INR this morning is 2.7, discontinued heparin and patient is on Coumadin 5 mg and managed by pharmacy -Vascular surgery did EKOS -baloon angioplasty and thrombectomy was done in the LE veins DVT prophylaxis -INR is 2.7 Disposition -Possible discharge tomorrow. History Interval history: Patient was seen and evaluated this morning, bilateral lower extremity pain is getting better. S/P EKOS Hospitalist Physical - Physical exam Narrative exam: Not in cardiopulmonary distress. The patient is obese. Vital signs as documented. Head exam is unremarkable. No scleral icterus . Neck is without jugular venous distension, thyromegaly, or carotid bruits. Lungs are clear to auscultation. Cardiac exam reveals regular rate and Rhythm. First and second heart sounds normal. No murmurs, rubs or gallops. Abdominal exam reveals normal bowel sounds, no masses, no organomegaly and no aortic enlargement. Extremities are +1 pedal and pretibial nonpitting edema. ALLEY TENDER: Alert and oriented 3. No focal weakness. - Constitutional Vitals: Temp Pulse Resp BP Pulse Ox 98.5 F 76 18 97/63 100 09/07/17 14:10 09/07/17 14:10 09/07/17 14:10 09/07/17 14:10 09/07/17 14:10 General appearance: Present: no acute distress Results - Labs CBC & Chem 7: 09/07/17 03:21 09/07/17 03:21 Labs: Laboratory Last Values WBC 7.2 K/mm3 (4.5-11.0) 09/06/17 03:55 RBC 3.56 M/mm3 (3.65-5.03) L 09/06/17 03:55 Hgb 10.5 gm/dl (11.8-15.2) L 09/07/17 03:21 Hct 33.3 % (35.5-45.6) L 09/07/17 03:21 MCV 94 fl (84-94) 09/06/17 03:55 MCH 31 pg (28-32) 09/06/17 03:55 MCHC 33 % (32-34) 09/06/17 03:55 RDW 17.2 % (13.2-15.2) H 09/06/17 03:55 Plt Count 249 K/mm3 (140-440) 09/07/17 03:21 Lymph % (Auto) 5.8 % (13.4-35.0) L 09/06/17 03:55 [place] % (Auto) 7.4 % (0.0-7.3) H 09/06/17 03:55 Eos % (Auto) 1.1 % (0.0-4.3) 09/06/17 03:55 Baso % (Auto) 1.4 % (0.0-1.8) 09/06/17 03:55 Lymph # 0.4 K/mm3 (1.2-5.4) L 09/06/17 03:55 [place] # 0.5 K/mm3 (0.0-0.8) 09/06/17 03:55 Eos # 0.1 K/mm3 (0.0-0.4) 09/06/17 03:55 Baso # 0.1 K/mm3 (0.0-0.1) 09/06/17 03:55 Seg Neutrophils % 84.3 % (40.0-70.0) H 09/06/17 03:55 Seg Neutrophils # 6.1 K/mm3 (1.8-7.7) 09/06/17 03:55 PT 31.2 Sec. (12.2-14.9) H 09/07/17 03:21 INR 2.77 (0.87-1.13) H 09/07/17 03:21 APTT 89.1 Sec. (24.2-36.6) H* 09/04/17 09:48 Fibrinogen 306 mg/dl (211-480) 09/05/17 02:25 Heparin Anti-Xa Level 0.10 U.I./ml (0.3-0.7) L 09/05/17 02:25 Sodium 140 mmol/L (137-145) 09/07/17 03:21 Potassium 5.7 mmol/L (3.6-5.0) H 09/07/17 03:21 Chloride 104.0 mmol/L (98-107) 09/07/17 03:21 Carbon Dioxide 24 mmol/L (22-30) 09/07/17 03:21 Anion Gap 18 mmol/L 09/07/17 03:21 BUN 52 mg/dL (9-20) H 09/07/17 03:21 Creatinine 2.3 mg/dL (0.8-1.5) H 09/07/17 03:21 Estimated GFR 34 ml/min 09/07/17 03:21 BUN/Creatinine Ratio 23 % 09/07/17 03:21 Glucose 108 mg/dL (75-100) H 09/07/17 03:21 Calcium 9.1 mg/dL (8.4-10.2) 09/07/17 03:21 Total Bilirubin 0.80 mg/dL (0.1-1.2) 08/31/17 22:04 AST 32 units/L (5-40) 08/31/17 22:04 ALT 31 units/L (7-56) 08/31/17 22:04 Alkaline Phosphatase 81 units/L (35-129) 08/31/17 22:04 Troponin T 0.061 ng/mL (0.00-0.029) H 09/01/17 00:10 NT-Pro-B Natriuret Pep 5787 pg/mL (0-900) H 09/01/17 00:10 Total Protein 6.1 g/dL (6.3-8.2) L 08/31/17 22:04 Albumin 3.2 g/dL (3.9-5) L 08/31/17 22:04 Albumin/Globulin Ratio 1.1 % 08/31/17 22:04 Triglycerides 148 mg/dL (2-149) 09/01/17 00:10 Cholesterol 170 mg/dL (50-199) 09/01/17 00:10 LDL Cholesterol Direct 97 mg/dL (50-130) 09/01/17 00:10 HDL Cholesterol 45 mg/dL (40-59) 09/01/17 00:10 Cholesterol/HDL Ratio 3.77 % 09/01/17 00:10 Urine Color Yellow (Yellow) 08/31/17 23:00 Urine Turbidity Clear (Clear) 08/31/17 23:00 Urine pH 5.0 (5.0-7.0) 08/31/17 23:00 Ur Specific [place] 1.015 (1.003-1.030) 08/31/17 23:00 Urine Protein 100 mg/dl mg/dL (Negative) 08/31/17 23:00 Urine Glucose (UA) Neg mg/dL (Negative) 08/31/17 23:00 Urine Ketones Neg mg/dL (Negative) 08/31/17 23:00 Urine Blood Neg (Negative) 08/31/17 23:00 Urine Nitrite Neg (Negative) 08/31/17 23:00 Urine Bilirubin Neg (Negative) 08/31/17 23:00 Urine Urobilinogen 2.0 mg/dL (<2.0) 08/31/17 23:00 Ur Leukocyte Esterase Neg (Negative) 08/31/17 23:00 Urine WBC (Auto) 3.0 /HPF (0.0-6.0) 08/31/17 23:00 Urine RBC (Auto) 2.0 /HPF (0.0-6.0) 08/31/17 23:00 U Epithel Cells (Auto) < 1.0 /HPF (0-13.0) 08/31/17 23:00 Hyaline Casts 1 /LPF 08/31/17 23:00 Urine Mucus Few /HPF 08/31/17 23:00 Urine Total Volume 750 09/02/17 04:00 Urine Creatinine 124.5 mg/dL (0.1-20.0) H 09/02/17 04:00 Height (in) 71.0 inches 09/02/17 04:00 Weight (lb) 280.0 lbs 09/02/17 04:00 Creatinine Clearance 17 09/02/17 04:00 INR is 2.7.
[2017-09-07] MEDS: COUMADIN PO SCH (17:55)
[2017-09-08 07:59] LABS: INR 2.31 (0.87-1.13)
[2017-09-08] MEDS: ZYLOPRIM PO SCH (10:32)
[2017-09-08] MEDS: NEURONTIN PO SCH ×2 (10:32→18:11)
[2017-09-08] MEDS: PROSCAR PO SCH (10:32)
[2017-09-08] MEDS: ASPIRIN PO SCH (10:33)
[2017-09-08] MEDS: MINIPRESS PO SCH (10:33)
[2017-09-08] MEDS: COREG PO SCH (10:33)
--- NOTE | 2017-09-08 12:27 | Discharge Summary ---
Providers - Providers Date of Admission: 09/01/17 00:20 Date of discharge: 09/08/17 Attending physician: ABDI MCCALL MD 09/01/17 02:29 Consult to Physician [CONS] Routine Consulting Provider: OLIVERIO VIRGEN Reason For Exam: CHF exacerbation Place consult to:: [facility] heart Notified:: ANSWERING SERVICE Phone number called:: [phone] Was contact made?: Yes If yes, spoke with:: LEESA Time called:: 08:54 Comment:: CONSULT COMPLETED 09/01/17 02:30 Consult to Physician [CONS] Routine Consulting Provider: NELLI UMNOZ Reason For Exam: CKD Place consult to:: Nephrology Notified:: ANSWERING SERVICES Phone number called:: [phone] Was contact made?: Yes Time called:: 09:18 Comment:: CONSULT COMPLETED Consult to Physician [CONS] Routine Consulting Provider: KANNAN JOHNSON Reason For Exam: MM on chemo Place consult to:: Oncology Notified:: ANSWERING SERVICES Phone number called:: [phone] Was contact made?: Yes If yes, spoke with:: PAULA Time called:: 09:09 Comment:: CONSULT COMPLETED 09/01/17 17:23 Consult to Physician [CONS] Routine Consulting Provider: KANNAN JOHNSON Reason For Exam: dvt Place consult to:: DR. JOHNSON Notified:: ANSWRING SERVICES Phone number called:: [phone] Was contact made?: Yes If yes, spoke with:: RONY Time called:: 18:22 Comment:: CONSULT COMPLETED 09/01/17 17:25 Consult to Physician [CONS] Routine Consulting Provider: SHERI SOTO Reason For Exam: bilateral dvt Place consult to:: DR. SOTO Notified:: DR. SOTO Phone number called:: [phone] Was contact made?: Yes If yes, spoke with:: DR. SOTO Time called:: 18:31 Comment:: CONSULT COMPLETED 09/03/17 07:21 Physical Therapy Evaluation and Treat [CONS] Routine Comment: Reason For Exam: debility 09/04/17 09:38 Consult to Physician [CONS] Routine Consulting Provider: SHERWIN CRAFT Reason For Exam: CCU admit for Ekos catheter placement Place consult to:: VENANCIO Notified:: OFFICE Phone number called:: [phone] Was contact made?: Yes If yes, spoke with:: LAZARA Time called:: 10:45 Comment:: DR BELLA COVERING Primary care physician: SALEEM SANDOVAL Hospitalization Reason for admission: Bilateral DVT Condition: Stable Disposition: DC-01 TO HOME OR SELFCARE Time spent for discharge: 31 minutes - Discharge Diagnoses (1) CHF (congestive heart failure) Status: Acute (2) DVT, bilateral lower limbs Status: Acute (3) Chronic systolic CHF (congestive heart failure) Status: Chronic (4) Chronic renal insufficiency Status: Acute Core Measure Documentation - Palliative Care Palliative Care/ Comfort Measures: Not Applicable - Core Measures Any of the following diagnoses?: heart failure - Heart Failure Discharge Requirements CONNIE/ARB for LVSD if EF <40%: No Reason for no CONNIE/ARB: Renal impairment Beta bienvenido at discharge: Yes Exam - Physical Exam Narrative exam: Not in cardiopulmonary distress. The patient is obese. Vital signs as documented. Head exam is unremarkable. No scleral icterus . Neck is without jugular venous distension, thyromegaly, or carotid bruits. Lungs are clear to auscultation. Cardiac exam reveals regular rate and Rhythm. First and second heart sounds normal. No murmurs, rubs or gallops. Abdominal exam reveals normal bowel sounds, no masses, no organomegaly and no aortic enlargement. Extremities are +1 pedal and pretibial nonpitting edema. TIE INSPECTOR: Alert and oriented 3. No focal weakness. - Constitutional Vitals: Temp Pulse Resp BP Pulse Ox 98.3 F 79 16 114/74 97 09/08/17 10:10 09/08/17 10:10 09/08/17 10:10 09/08/17 10:10 09/08/17 10:10 Plan Activity: no restrictions Weight Bearing Status: Full Weight Bearing Diet: low cholesterol, low salt Follow up with: SALEEM SANDOVAL MD [Primary Care Provider] - 3-5 Days RICHARD GARCÍA MD [Staff Physician] - 3 Days Forms: Warfarin Discharge Instruction Prescriptions: Warfarin [Coumadin] 5 mg PO DAILY@1700 #30 tablet
--- NOTE | 2017-09-08 12:49 | Progress Note ---
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, lorin if refractory to diuresis, may have myeloma kidney Subjective Date of service: 09/08/17 Principal diagnosis: DVT s/p EKOS , Severe CMP Interval history: resting well today Objective - Exam Narrative Exam: HEENT: Oral mucosa moist no pallor or icterus Neck: Supple no JVD Chest: Clear to auscultation anteriorly CVS: Regular rate and rhythm S1 and S2 heard Abdomen: Soft nontender no suprapubic masses no organomegaly appreciable Extremity: Dry skin less than 2-3+ peripheral edema, unchanged at this time Musculoskeletal: No joint effusion noted in knees and ankle Neurological: Alert awake Dermatology: No petechial rashes Psychiatry: No evidence of any agitation and aggression noted - Vital Signs Vital signs: Vital Signs - 12hr 09/08/17 09/08/17 05:04 10:10 Temperature 98.5 F 98.3 F Pulse Rate 78 79 Respiratory 20 16 Rate Blood Pressure 111/73 114/74 O2 Sat by Pulse 99 97 Oximetry - Lab 09/07/17 03:21 09/08/17 06:59 Most recent lab results Calcium 9.0 mg/dL (8.4-10.2) 09/08/17 06:59 Urine Creatinine 124.5 mg/dL (0.1-20.0) H 09/02/17 04:00
--- NOTE | 2017-09-08 13:12 | Hem/Onc Progress Note ---
Assessment and Plan Patient to go home on Coumadin. Keep INR between 2 and 3. supportive care. Will follow him as outpatient Subjective Date of service: 09/08/17 Interval history: Patient status post E Kos. Still having pain but seems to be better. Ready to go home Objective - Constitutional Vitals: Last Vital Signs Temp 97.9 F 09/08/17 12:24 Pulse 79 09/08/17 10:10 Resp 18 09/08/17 12:24 BP 102/70 09/08/17 12:24 Pulse Ox 97 09/08/17 10:10 General appearance: no acute distress Performance status: 3-limited selfcare - Neck Neck: supple - Respiratory Respiratory effort: Positive: normal Respiratory: bilateral: diminished - Cardiovascular Rhythm: regular Extremities: abnormal (bilateral edema) - Gastrointestinal General gastrointestinal: Present: soft - Labs Lab Results: Laboratory Results - last 24 hr 09/08/17 09/08/17 06:55 06:59 PT 26.9 H INR 2.31 H Sodium 140 Potassium 4.5 D Chloride 102.9 Carbon Dioxide 22 Anion Gap 20 BUN 47 H Creatinine 2.0 H Estimated GFR 40 BUN/Creatinine Ratio 24 Glucose 109 H Calcium 9.0
--- NOTE | 2017-09-08 15:47 | Progress Note ---
Assessment and Plan Lower extremities DVT. Status post EKOS procedure,thrombolysis Cardiomyopathy with ejection fraction 50% Multiple myeloma Chronic kidney disease Obesity Hypertension Sleep apnea. Reportedly previously on CPAP but apparently not following treated at home Recommendations Monitor for fever Continue IV fluids. If OK with consultants, consider tranfer to floor I recommended adding incentive spirometry for atelectasis prevention Needs repeat sleep study and CPAP titration study followed by CPAP treatment with new mask Subjective Date of service: 09/08/17 Principal diagnosis: DVT s/p EKOS , Severe CMP Interval history: Patient doing well. reports he has CPAP machine given to him many years ago but he does not use it as he was not able to tolerate it due to poor mask fit and mask leaks Objective Vital Signs - 12hr 09/08/17 09/08/17 09/08/17 05:04 10:10 12:24 Temperature 98.5 F 98.3 F 97.9 F Pulse Rate 78 79 Respiratory 20 16 18 Rate Blood Pressure 111/73 114/74 102/70 O2 Sat by Pulse 99 97 Oximetry Constitutional: no acute distress, alert, asleep, other (obese. Falls asleep during conversation.) Eyes: non-icteric ENT: oropharynx moist Neck: supple, no JVD Ascultation: Bilateral: clear Cardiovascular: regular rate and rhythm Gastrointestinal: normoactive bowel sounds, non-distended Integumentary: normal Extremities: edema Neurologic: normal mental status, non-focal exam, CN II-XII normal, motor strength normal and Psychiatric: mood appropriate, affect normal CBC and BMP: 09/07/17 03:21 09/08/17 06:59 ABG, PT/INR, D-dimer: PT/INR, D-dimer PT 26.9 Sec. (12.2-14.9) H 09/08/17 06:55 INR 2.31 (0.87-1.13) H 09/08/17 06:55 Abnormal lab findings: Abnormal Labs 08/31/17 08/31/17 09/01/17 22:04 22:04 00:10 RBC Hgb Hct RDW 17.3 H Lymph % (Auto) 4.9 L Rogers % (Auto) 14.4 H Baso % (Auto) Lymph # 0.3 L Rogers # 0.9 H Seg Neutrophils % 78.2 H PT INR APTT Fibrinogen Heparin Anti-Xa Level Sodium Potassium 5.2 H Chloride 97.2 L BUN 52 H Creatinine 2.7 H Glucose 152 H Troponin T 0.061 H NT-Pro-B Natriuret Pep 5787 H Total Protein 6.1 L Albumin 3.2 L Urine Creatinine 09/01/17 09/01/17 09/02/17 17:43 21:24 00:18 RBC Hgb Hct RDW Lymph % (Auto) [place] % (Auto) Baso % (Auto) Lymph # Rogers # Seg Neutrophils % PT 15.1 H INR APTT Fibrinogen Heparin Anti-Xa Level < 0.10 L Sodium 134 L Potassium Chloride 94.5 L BUN 52 H Creatinine 2.7 H Glucose 137 H Troponin T NT-Pro-B Natriuret Pep Total Protein Albumin Urine Creatinine 09/02/17 09/02/17 09/02/17 04:00 09:09 09:09 RBC Hgb 11.4 L Hct 35.1 L RDW 17.1 H Lymph % (Auto) 8.2 L Rogers % (Auto) 13.9 H Baso % (Auto) Lymph # 0.5 L Rogers # Seg Neutrophils % 73.6 H PT INR APTT Fibrinogen Heparin Anti-Xa Level Sodium 134 L Potassium Chloride 96.4 L BUN 54 H Creatinine 2.8 H Glucose 134 H Troponin T NT-Pro-B Natriuret Pep Total Protein Albumin Urine Creatinine 124.5 H 09/02/17 09/03/17 09/03/17 09:09 04:24 04:28 RBC Hgb 11.3 L Hct 33.9 L RDW Lymph % (Auto) [place] % (Auto) Baso % (Auto) Lymph # Rogers # Seg Neutrophils % PT 16.0 H 15.9 H INR 1.21 H 1.20 H APTT Fibrinogen Heparin Anti-Xa Level 0.18 L Sodium Potassium Chloride BUN Creatinine Glucose Troponin T NT-Pro-B Natriuret Pep Total Protein Albumin Urine Creatinine 09/03/17 09/04/17 09/04/17 18:51 05:45 09:48 RBC Hgb Hct RDW Lymph % (Auto) Rogers % (Auto) Baso % (Auto) Lymph # Rogers # Seg Neutrophils % PT 18.9 H 19.2 H INR 1.49 H 1.52 H APTT 89.1 H* Fibrinogen 728 H Heparin Anti-Xa Level 0.18 L 0.27 L Sodium Potassium Chloride BUN Creatinine Glucose Troponin T NT-Pro-B Natriuret Pep Total Protein Albumin Urine Creatinine 09/04/17 09/04/17 09/04/17 09:48 09:48 20:47 RBC Hgb 11.7 L 11.1 L Hct 35.0 L RDW 17.3 H 17.3 H Lymph % (Auto) 8.0 L 4.7 L Rogers % (Auto) 8.3 H 8.9 H Baso % (Auto) 2.4 H Lymph # 0.5 L 0.3 L Rogers # Seg Neutrophils % 78.9 H 83.9 H PT INR APTT Fibrinogen Heparin Anti-Xa Level Sodium 134 L Potassium 5.1 H Chloride 94.7 L BUN 56 H Creatinine 2.8 H Glucose 130 H Troponin T NT-Pro-B Natriuret Pep Total Protein Albumin Urine Creatinine 09/04/17 09/05/17 09/05/17 20:47 02:25 02:25 RBC 3.55 L Hgb 10.8 L Hct 32.7 L RDW 17.3 H Lymph % (Auto) 4.1 L Rogers % (Auto) 8.7 H Baso % (Auto) Lymph # 0.3 L Rogers # Seg Neutrophils % 84.9 H PT 24.8 H INR 2.09 H APTT Fibrinogen Heparin Anti-Xa Level < 0.10 L 0.10 L Sodium Potassium Chloride BUN Creatinine Glucose Troponin T NT-Pro-B Natriuret Pep Total Protein Albumin Urine Creatinine 09/05/17 09/06/17 09/06/17 02:25 03:55 03:55 RBC Hgb Hct RDW Lymph % (Auto) Rogers % (Auto) Baso % (Auto) Lymph # Rogers # Seg Neutrophils % PT 36.2 H INR 3.34 H APTT Fibrinogen Heparin Anti-Xa Level Sodium 136 L Potassium 5.3 H Chloride BUN 55 H 54 H Creatinine 2.5 H 2.4 H Glucose 138 H 115 H Troponin T NT-Pro-B Natriuret Pep Total Protein Albumin Urine Creatinine 09/06/17 09/07/17 09/07/17 03:55 03:21 03:21 RBC 3.56 L Hgb 10.9 L 10.5 L Hct 33.5 L 33.3 L RDW 17.2 H Lymph % (Auto) 5.8 L Rogers % (Auto) 7.4 H Baso % (Auto) Lymph # 0.4 L Rogers # Seg Neutrophils % 84.3 H PT 31.2 H INR 2.77 H APTT Fibrinogen Heparin Anti-Xa Level Sodium Potassium Chloride BUN Creatinine Glucose Troponin T NT-Pro-B Natriuret Pep Total Protein Albumin Urine Creatinine 09/07/17 09/08/17 09/08/17 03:21 06:55 06:59 RBC Hgb Hct RDW Lymph % (Auto) Rogers % (Auto) Baso % (Auto) Lymph # Rogers # Seg Neutrophils % PT 26.9 H INR 2.31 H APTT Fibrinogen Heparin Anti-Xa Level Sodium Potassium 5.7 H Chloride BUN 52 H 47 H Creatinine 2.3 H 2.0 H Glucose 108 H 109 H Troponin T NT-Pro-B Natriuret Pep Total Protein Albumin Urine Creatinine
--- NOTE | 2017-09-08 17:41 | Progress Note ---
Assessment and Plan Assessment and plan: Acute on chronic CHF exacerbation - Cardiology is following - AICD in situ - Currently stable CKD - Nephrology consulted - Patient has chronic bilateral leg swelling and nephrology recommend aggressive diuresis and currently on lasix 20mg IV q12H Multiple myeloma, back pain - Oncology consult appreciated Bilateral lower extremity DVT, history of DVT status post filter -Patient was on heparin and Coumadin, INR this morning is 2.3, discontinued heparin and patient is on Coumadin 5 mg and managed by pharmacy -Vascular surgery did EKOS -baloon angioplasty and thrombectomy was done in the LE veins DVT prophylaxis -INR is 2.3 Disposition -Continue diuresis - Patient Problems (1) CHF (congestive heart failure) Current Visit: Yes Status: Acute (2) DVT, bilateral lower limbs Current Visit: Yes Status: Acute (3) Chronic systolic CHF (congestive heart failure) Current Visit: Yes Status: Chronic (4) Chronic renal insufficiency Current Visit: No Status: Acute History Interval history: Patient was seen and evaluated this morning, bilateral lower extremity pain is getting better. S/P EKOS Hospitalist Physical - Physical exam Narrative exam: Not in cardiopulmonary distress. The patient is obese. Vital signs as documented. Head exam is unremarkable. No scleral icterus . Neck is without jugular venous distension, thyromegaly, or carotid bruits. Lungs are clear to auscultation. Cardiac exam reveals regular rate and Rhythm. First and second heart sounds normal. No murmurs, rubs or gallops. Abdominal exam reveals normal bowel sounds, no masses, no organomegaly and no aortic enlargement. Extremities are +2 pedal and pretibial edema. 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 No focal weakness. - Constitutional Vitals: Temp Pulse Resp BP Pulse Ox 97.9 F 79 18 102/70 97 09/08/17 12:24 09/08/17 10:10 09/08/17 12:24 09/08/17 12:24 09/08/17 10:10 General appearance: Present: no acute distress Results - Labs CBC & Chem 7: 09/07/17 03:21 09/08/17 06:59 Labs: Laboratory Last Values WBC 7.2 K/mm3 (4.5-11.0) 09/06/17 03:55 RBC 3.56 M/mm3 (3.65-5.03) L 09/06/17 03:55 Hgb 10.5 gm/dl (11.8-15.2) L 09/07/17 03:21 Hct 33.3 % (35.5-45.6) L 09/07/17 03:21 MCV 94 fl (84-94) 09/06/17 03:55 MCH 31 pg (28-32) 09/06/17 03:55 MCHC 33 % (32-34) 09/06/17 03:55 RDW 17.2 % (13.2-15.2) H 09/06/17 03:55 Plt Count 249 K/mm3 (140-440) 09/07/17 03:21 Lymph % (Auto) 5.8 % (13.4-35.0) L 09/06/17 03:55 [place] % (Auto) 7.4 % (0.0-7.3) H 09/06/17 03:55 Eos % (Auto) 1.1 % (0.0-4.3) 09/06/17 03:55 Baso % (Auto) 1.4 % (0.0-1.8) 09/06/17 03:55 Lymph # 0.4 K/mm3 (1.2-5.4) L 09/06/17 03:55 [place] # 0.5 K/mm3 (0.0-0.8) 09/06/17 03:55 Eos # 0.1 K/mm3 (0.0-0.4) 09/06/17 03:55 Baso # 0.1 K/mm3 (0.0-0.1) 09/06/17 03:55 Seg Neutrophils % 84.3 % (40.0-70.0) H 09/06/17 03:55 Seg Neutrophils # 6.1 K/mm3 (1.8-7.7) 09/06/17 03:55 PT 26.9 Sec. (12.2-14.9) H 09/08/17 06:55 INR 2.31 (0.87-1.13) H 09/08/17 06:55 APTT 89.1 Sec. (24.2-36.6) H* 09/04/17 09:48 Fibrinogen 306 mg/dl (211-480) 09/05/17 02:25 Heparin Anti-Xa Level 0.10 U.I./ml (0.3-0.7) L 09/05/17 02:25 Sodium 140 mmol/L (137-145) 09/08/17 06:59 Potassium 4.5 mmol/L (3.6-5.0) D 09/08/17 06:59 Chloride 102.9 mmol/L (98-107) 09/08/17 06:59 Carbon Dioxide 22 mmol/L (22-30) 09/08/17 06:59 Anion Gap 20 mmol/L 09/08/17 06:59 BUN 47 mg/dL (9-20) H 09/08/17 06:59 Creatinine 2.0 mg/dL (0.8-1.5) H 09/08/17 06:59 Estimated GFR 40 ml/min 09/08/17 06:59 BUN/Creatinine Ratio 24 % 09/08/17 06:59 Glucose 109 mg/dL (75-100) H 09/08/17 06:59 Calcium 9.0 mg/dL (8.4-10.2) 09/08/17 06:59 Total Bilirubin 0.80 mg/dL (0.1-1.2) 08/31/17 22:04 AST 32 units/L (5-40) 08/31/17 22:04 ALT 31 units/L (7-56) 08/31/17 22:04 Alkaline Phosphatase 81 units/L (35-129) 08/31/17 22:04 Troponin T 0.061 ng/mL (0.00-0.029) H 09/01/17 00:10 NT-Pro-B Natriuret Pep 5787 pg/mL (0-900) H 09/01/17 00:10 Total Protein 6.1 g/dL (6.3-8.2) L 08/31/17 22:04 Albumin 3.2 g/dL (3.9-5) L 08/31/17 22:04 Albumin/Globulin Ratio 1.1 % 08/31/17 22:04 Triglycerides 148 mg/dL (2-149) 09/01/17 00:10 Cholesterol 170 mg/dL (50-199) 09/01/17 00:10 LDL Cholesterol Direct 97 mg/dL (50-130) 09/01/17 00:10 HDL Cholesterol 45 mg/dL (40-59) 09/01/17 00:10 Cholesterol/HDL Ratio 3.77 % 09/01/17 00:10 Urine Color Yellow (Yellow) 08/31/17 23:00 Urine Turbidity Clear (Clear) 08/31/17 23:00 Urine pH 5.0 (5.0-7.0) 08/31/17 23:00 Ur Specific [place] 1.015 (1.003-1.030) 08/31/17 23:00 Urine Protein 100 mg/dl mg/dL (Negative) 08/31/17 23:00 Urine Glucose (UA) Neg mg/dL (Negative) 08/31/17 23:00 Urine Ketones Neg mg/dL (Negative) 08/31/17 23:00 Urine Blood Neg (Negative) 08/31/17 23:00 Urine Nitrite Neg (Negative) 08/31/17 23:00 Urine Bilirubin Neg (Negative) 08/31/17 23:00 Urine Urobilinogen 2.0 mg/dL (<2.0) 08/31/17 23:00 Ur Leukocyte Esterase Neg (Negative) 08/31/17 23:00 Urine WBC (Auto) 3.0 /HPF (0.0-6.0) 08/31/17 23:00 Urine RBC (Auto) 2.0 /HPF (0.0-6.0) 08/31/17 23:00 U Epithel Cells (Auto) < 1.0 /HPF (0-13.0) 08/31/17 23:00 Hyaline Casts 1 /LPF 08/31/17 23:00 Urine Mucus Few /HPF 08/31/17 23:00 Urine Total Volume 750 09/02/17 04:00 Urine Creatinine 124.5 mg/dL (0.1-20.0) H 09/02/17 04:00 Height (in) 71.0 inches 09/02/17 04:00 Weight (lb) 280.0 lbs 09/02/17 04:00 Creatinine Clearance 17 09/02/17 04:00
[2017-09-08] MEDS: COUMADIN PO SCH (18:10)
[2017-09-08] MEDS: LASIX IV SCH (18:11)
[2017-09-08] MEDS: TYLENOL PO SCH ×2 (18:28→22:00)
[2017-09-09] MEDS: MINIPRESS PO SCH ×3 (00:20→21:41)
[2017-09-09] MEDS: COREG PO SCH ×3 (00:20→21:41)
[2017-09-09] MEDS: ZYLOPRIM PO SCH ×3 (00:21→21:41)
[2017-09-09] MEDS: NEURONTIN PO SCH ×3 (00:21→21:41)
[2017-09-09] MEDS: ALBURX 25% (ALBUMIN) IV SCH ×4 (00:47→21:33)
[2017-09-09] MEDS: LASIX IV SCH ×2 (05:51→17:44)
[2017-09-09 07:34] LABS: Hematocrit 30.5 % (35.5-45.6); Hemoglobin 9.8 gm/dl (11.8-15.2); Mean Corpuscular HGB Conc 32 % (32-34); Mean Corpuscular Hemoglobin 30 pg (28-32); Mean Corpuscular Volume 93 fl (84-94); Platelet Count 274 K/mm3 (140-440); Red Blood Count 3.29 M/mm3 (3.65-5.03); Red Cell Distribution Width 16.9 % (13.2-15.2)
[2017-09-09 07:43] LABS: INR 2.17 (0.87-1.13)
[2017-09-09 07:53] LABS: Calcium 9.2 mg/dL (8.4-10.2)
[2017-09-09 08:55] LABS: Band Neutrophils # (Manual) 0.1 K/mm3; Total Cells Counted 100
[2017-09-09 08:56] LABS: Anisocytosis 1+; Ovalocytes 1+; Tear Drop Cells Rare
--- NOTE | 2017-09-09 11:39 | Progress Note ---
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, lorin if refractory to diuresis, may have myeloma kidney Subjective Date of service: 09/09/17 Principal diagnosis: DVT s/p EKOS , Severe CMP Interval history: resting well today Objective - Exam Narrative Exam: HEENT: Oral mucosa moist no pallor or icterus Neck: Supple no JVD Chest: Clear to auscultation anteriorly CVS: Regular rate and rhythm S1 and S2 heard Abdomen: Soft nontender no suprapubic masses no organomegaly appreciable Extremity: Dry skin less than 2-3+ peripheral edema, unchanged at this time Musculoskeletal: No joint effusion noted in knees and ankle Neurological: Alert awake Dermatology: No petechial rashes Psychiatry: No evidence of any agitation and aggression noted - Vital Signs Vital signs: Vital Signs - 12hr 09/09/17 09/09/17 09/09/17 00:10 00:20 00:49 Temperature 98.0 F 98.5 F Pulse Rate 88 88 85 Respiratory 18 20 Rate Blood Pressure 128/78 128/88 128/78 O2 Sat by Pulse 97 Oximetry 09/09/17 09/09/17 09/09/17 01:13 01:28 04:43 Temperature 98.9 F 98.6 F 98.4 F Pulse Rate 71 71 71 Respiratory 18 20 18 Rate Blood Pressure 104/71 113/70 113/75 O2 Sat by Pulse 97 Oximetry 09/09/17 08:08 Temperature 98.3 F Pulse Rate 75 Respiratory 18 Rate Blood Pressure 109/72 O2 Sat by Pulse 99 Oximetry - Lab 09/09/17 07:01 09/09/17 07:01 Most recent lab results Calcium 9.2 mg/dL (8.4-10.2) 09/09/17 07:01 Urine Creatinine 124.5 mg/dL (0.1-20.0) H 09/02/17 04:00
--- NOTE | 2017-09-09 12:41 | Hem/Onc Progress Note ---
Assessment and Plan Patient to go home on Coumadin. Keep INR between 2 and 3. supportive care. To get physical therapy prior to discharge Subjective Date of service: 09/09/17 Interval history: Patient status post E Kos. Still having pain but seems to be better. Objective - Constitutional Vitals: Last Vital Signs Temp 98.3 F 09/09/17 08:08 Pulse 75 09/09/17 08:08 Resp 18 09/09/17 08:08 BP 109/72 09/09/17 08:08 Pulse Ox 99 09/09/17 08:08 Pain Intensity (0-10): denies any pain Performance status: 3-limited selfcare - Neck Neck: supple - Respiratory Respiratory effort: Positive: normal Respiratory: bilateral: diminished - Cardiovascular Rhythm: regular Extremities: abnormal (bilateral pedal edema) - Gastrointestinal General gastrointestinal: Present: soft - Labs Lab Results: Laboratory Results - last 24 hr 09/09/17 09/09/17 09/09/17 07:01 07:01 07:01 WBC 6.5 RBC 3.29 L Hgb 9.8 L Hct 30.5 L MCV 93 MCH 30 MCHC 32 RDW 16.9 H Plt Count 274 Baso % (Auto) [place] Straightener Stamper Add Manual Diff Complete Total Counted 100 Seg Neuts % (Manual) 85.0 H Band Neutrophils % 1.0 Lymphocytes % (Manual) 6.0 L Reactive Lymphs % (Man) 0 Monocytes % (Manual) 2.0 Eosinophils % (Manual) 2.0 Basophils % (Manual) 2.0 H Metamyelocytes % 2.0 Myelocytes % 0 Promyelocytes % 0 Blast Cells % 0 Nucleated RBC % Not Reportable Seg Neutrophils # Man 5.5 Band Neutrophils # 0.1 Lymphocytes # (Manual) 0.4 L Abs React Lymphs (Man) 0.0 Monocytes # (Manual) 0.1 Eosinophils # (Manual) 0.1 Basophils # (Manual) 0.1 Metamyelocytes # 0.1 Myelocytes # 0.0 Promyelocytes # 0.0 Blast Cells # 0.0 WBC Morphology Not Reportable Hypersegmented Neuts Not Reportable Hyposegmented Neuts Not Reportable Hypogranular Neuts Not Reportable Smudge Cells Not Reportable Toxic Granulation Not Reportable Toxic Vacuolation Not Reportable Dohle Bodies Not Reportable Pelger-Huet Anomaly Not Reportable Galilea Rods Not Reportable Platelet Estimate Appears normal Clumped Platelets Not Reportable Plt Clumps, EDTA Not Reportable Large Platelets Not Reportable Giant Platelets Not Reportable Platelet Satelliting Not Reportable Plt Morphology Comment Not Reportable RBC Morphology Not Reportable Dimorphic RBCs Not Reportable Polychromasia Few Hypochromasia Not Reportable Poikilocytosis Not Reportable Anisocytosis 1+ Microcytosis Not Reportable Macrocytosis Not Reportable Spherocytes Not Reportable Pappenheimer Bodies Not Reportable Sickle Cells Not Reportable Target Cells Not Reportable Tear Drop Cells Rare Ovalocytes 1+ Helmet Cells Not Reportable Brouss[place] Bodies Not Reportable [place] Rings Not Reportable [place] Cells Not Reportable Bite Cells Not Reportable Crenated Cell Not Reportable Elliptocytes Few Acanthocytes (Spur) Not Reportable Rouleaux Not Reportable Hemoglobin C Crystals Not Reportable Schistocytes Not Reportable Malaria parasites Not Reportable Raciel Bodies Not Reportable Hem Pathologist Commnt No PT 25.6 H INR 2.17 H Sodium 140 Potassium 4.7 Chloride 102.7 Carbon Dioxide 25 Anion Gap 17 BUN 44 H Creatinine 2.1 H Estimated GFR 38 BUN/Creatinine Ratio 21 Glucose 120 H Calcium 9.2
--- NOTE | 2017-09-09 12:45 | Progress Note ---
Subjective Date of service: 09/09/17 Principal diagnosis: DVT s/p EKOS , Severe CMP Interval history: Patient doing well. reports he has CPAP machine given to him many years ago but he does not use it as he was not able to tolerate it due to poor mask fit and mask leaks Objective Vital Signs - 12hr 09/09/17 09/09/17 09/09/17 00:49 01:13 01:28 Temperature 98.5 F 98.9 F 98.6 F Pulse Rate 85 71 71 Respiratory 20 18 20 Rate Blood Pressure 128/78 104/71 113/70 O2 Sat by Pulse Oximetry 09/09/17 09/09/17 04:43 08:08 Temperature 98.4 F 98.3 F Pulse Rate 71 75 Respiratory 18 18 Rate Blood Pressure 113/75 109/72 O2 Sat by Pulse 97 99 Oximetry Constitutional: no acute distress, alert, asleep, other (obese. Falls asleep during conversation.) Eyes: non-icteric ENT: oropharynx moist Neck: supple, no JVD Ascultation: Bilateral: clear Cardiovascular: regular rate and rhythm Gastrointestinal: normoactive bowel sounds, non-distended Integumentary: normal Extremities: edema Neurologic: normal mental status, non-focal exam, CN II-XII normal, motor strength normal and Psychiatric: mood appropriate, affect normal CBC and BMP: 09/09/17 07:01 09/09/17 07:01 ABG, PT/INR, D-dimer: PT/INR, D-dimer PT 25.6 Sec. (12.2-14.9) H 09/09/17 07:01 INR 2.17 (0.87-1.13) H 09/09/17 07:01 Abnormal lab findings: Abnormal Labs 08/31/17 08/31/17 09/01/17 22:04 22:04 00:10 RBC Hgb Hct RDW 17.3 H Lymph % (Auto) 4.9 L [place] % (Auto) 14.4 H Baso % (Auto) Lymph # 0.3 L [place] # 0.9 H Seg Neutrophils % 78.2 H Seg Neuts % (Manual) Lymphocytes % (Manual) Basophils % (Manual) Lymphocytes # (Manual) PT INR APTT Fibrinogen Heparin Anti-Xa Level Sodium Potassium 5.2 H Chloride 97.2 L BUN 52 H Creatinine 2.7 H Glucose 152 H Troponin T 0.061 H NT-Pro-B Natriuret Pep 5787 H Total Protein 6.1 L Albumin 3.2 L Urine Creatinine 09/01/17 09/01/17 09/02/17 17:43 21:24 00:18 RBC Hgb Hct RDW Lymph % (Auto) [place] % (Auto) Baso % (Auto) Lymph # [place] # Seg Neutrophils % Seg Neuts % (Manual) Lymphocytes % (Manual) Basophils % (Manual) Lymphocytes # (Manual) PT 15.1 H INR APTT Fibrinogen Heparin Anti-Xa Level < 0.10 L Sodium 134 L Potassium Chloride 94.5 L BUN 52 H Creatinine 2.7 H Glucose 137 H Troponin T NT-Pro-B Natriuret Pep Total Protein Albumin Urine Creatinine 09/02/17 09/02/17 09/02/17 04:00 09:09 09:09 RBC Hgb 11.4 L Hct 35.1 L RDW 17.1 H Lymph % (Auto) 8.2 L [place] % (Auto) 13.9 H Baso % (Auto) Lymph # 0.5 L [place] # Seg Neutrophils % 73.6 H Seg Neuts % (Manual) Lymphocytes % (Manual) Basophils % (Manual) Lymphocytes # (Manual) PT INR APTT Fibrinogen Heparin Anti-Xa Level Sodium 134 L Potassium Chloride 96.4 L BUN 54 H Creatinine 2.8 H Glucose 134 H Troponin T NT-Pro-B Natriuret Pep Total Protein Albumin Urine Creatinine 124.5 H 09/02/17 09/03/17 09/03/17 09:09 04:24 04:28 RBC Hgb 11.3 L Hct 33.9 L RDW Lymph % (Auto) [place] % (Auto) Baso % (Auto) Lymph # [place] # Seg Neutrophils % Seg Neuts % (Manual) Lymphocytes % (Manual) Basophils % (Manual) Lymphocytes # (Manual) PT 16.0 H 15.9 H INR 1.21 H 1.20 H APTT Fibrinogen Heparin Anti-Xa Level 0.18 L Sodium Potassium Chloride BUN Creatinine Glucose Troponin T NT-Pro-B Natriuret Pep Total Protein Albumin Urine Creatinine 09/03/17 09/04/17 09/04/17 18:51 05:45 09:48 RBC Hgb Hct RDW Lymph % (Auto) [place] % (Auto) Baso % (Auto) Lymph # [place] # Seg Neutrophils % Seg Neuts % (Manual) Lymphocytes % (Manual) Basophils % (Manual) Lymphocytes # (Manual) PT 18.9 H 19.2 H INR 1.49 H 1.52 H APTT 89.1 H* Fibrinogen 728 H Heparin Anti-Xa Level 0.18 L 0.27 L Sodium Potassium Chloride BUN Creatinine Glucose Troponin T NT-Pro-B Natriuret Pep Total Protein Albumin Urine Creatinine 09/04/17 09/04/17 09/04/17 09:48 09:48 20:47 RBC Hgb 11.7 L 11.1 L Hct 35.0 L RDW 17.3 H 17.3 H Lymph % (Auto) 8.0 L 4.7 L [place] % (Auto) 8.3 H 8.9 H Baso % (Auto) 2.4 H Lymph # 0.5 L 0.3 L [place] # Seg Neutrophils % 78.9 H 83.9 H Seg Neuts % (Manual) Lymphocytes % (Manual) Basophils % (Manual) Lymphocytes # (Manual) PT INR APTT Fibrinogen Heparin Anti-Xa Level Sodium 134 L Potassium 5.1 H Chloride 94.7 L BUN 56 H Creatinine 2.8 H Glucose 130 H Troponin T NT-Pro-B Natriuret Pep Total Protein Albumin Urine Creatinine 09/04/17 09/05/17 09/05/17 20:47 02:25 02:25 RBC 3.55 L Hgb 10.8 L Hct 32.7 L RDW 17.3 H Lymph % (Auto) 4.1 L [place] % (Auto) 8.7 H Baso % (Auto) Lymph # 0.3 L [place] # Seg Neutrophils % 84.9 H Seg Neuts % (Manual) Lymphocytes % (Manual) Basophils % (Manual) Lymphocytes # (Manual) PT 24.8 H INR 2.09 H APTT Fibrinogen Heparin Anti-Xa Level < 0.10 L 0.10 L Sodium Potassium Chloride BUN Creatinine Glucose Troponin T NT-Pro-B Natriuret Pep Total Protein Albumin Urine Creatinine 09/05/17 09/06/17 09/06/17 02:25 03:55 03:55 RBC Hgb Hct RDW Lymph % (Auto) [place] % (Auto) Baso % (Auto) Lymph # [place] # Seg Neutrophils % Seg Neuts % (Manual) Lymphocytes % (Manual) Basophils % (Manual) Lymphocytes # (Manual) PT 36.2 H INR 3.34 H APTT Fibrinogen Heparin Anti-Xa Level Sodium 136 L Potassium 5.3 H Chloride BUN 55 H 54 H Creatinine 2.5 H 2.4 H Glucose 138 H 115 H Troponin T NT-Pro-B Natriuret Pep Total Protein Albumin Urine Creatinine 09/06/17 09/07/17 09/07/17 03:55 03:21 03:21 RBC 3.56 L Hgb 10.9 L 10.5 L Hct 33.5 L 33.3 L RDW 17.2 H Lymph % (Auto) 5.8 L [place] % (Auto) 7.4 H Baso % (Auto) Lymph # 0.4 L [place] # Seg Neutrophils % 84.3 H Seg Neuts % (Manual) Lymphocytes % (Manual) Basophils % (Manual) Lymphocytes # (Manual) PT 31.2 H INR 2.77 H APTT Fibrinogen Heparin Anti-Xa Level Sodium Potassium Chloride BUN Creatinine Glucose Troponin T NT-Pro-B Natriuret Pep Total Protein Albumin Urine Creatinine 09/07/17 09/08/17 09/08/17 03:21 06:55 06:59 RBC Hgb Hct RDW Lymph % (Auto) [place] % (Auto) Baso % (Auto) Lymph # [place] # Seg Neutrophils % Seg Neuts % (Manual) Lymphocytes % (Manual) Basophils % (Manual) Lymphocytes # (Manual) PT 26.9 H INR 2.31 H APTT Fibrinogen Heparin Anti-Xa Level Sodium Potassium 5.7 H Chloride BUN 52 H 47 H Creatinine 2.3 H 2.0 H Glucose 108 H 109 H Troponin T NT-Pro-B Natriuret Pep Total Protein Albumin Urine Creatinine 09/09/17 09/09/17 09/09/17 07:01 07:01 07:01 RBC 3.29 L Hgb 9.8 L Hct 30.5 L RDW 16.9 H Lymph % (Auto) [place] % (Auto) Baso % (Auto) Lymph # [place] # Seg Neutrophils % Seg Neuts % (Manual) 85.0 H Lymphocytes % (Manual) 6.0 L Basophils % (Manual) 2.0 H Lymphocytes # (Manual) 0.4 L PT 25.6 H INR 2.17 H APTT Fibrinogen Heparin Anti-Xa Level Sodium Potassium Chloride BUN 44 H Creatinine 2.1 H Glucose 120 H Troponin T NT-Pro-B Natriuret Pep Total Protein Albumin Urine Creatinine
[2017-09-09] MEDS: ASPIRIN PO SCH (12:56)
[2017-09-09] MEDS: ZAROXOLYN PO SCH (13:01)
[2017-09-09] MEDS: PROSCAR PO SCH (13:02)
[2017-09-09] MEDS: TYLENOL PO SCH ×2 (13:07→21:29)
--- NOTE | 2017-09-09 13:07 | Progress Note ---
Assessment and Plan Assessment and plan: Acute on chronic CHF exacerbation - Cardiology is following - AICD in situ - Currently stable CKD - Nephrology consulted - Patient has chronic bilateral leg swelling and nephrology recommend aggressive diuresis and currently on lasix 20mg IV q12H Multiple myeloma, back pain - Oncology consult appreciated Bilateral lower extremity DVT, history of DVT status post filter -Patient was on heparin and Coumadin, INR this morning is therapeutic, discontinued heparin and patient is on Coumadin 5 mg and managed by pharmacy -Vascular surgery did EKOS -baloon angioplasty and thrombectomy was done in the LE veins DVT prophylaxis -Therapeutic warfarin Disposition -Continue diuresis - Patient Problems (1) CHF (congestive heart failure) Current Visit: Yes Status: Acute (2) DVT, bilateral lower limbs Current Visit: Yes Status: Acute (3) Chronic systolic CHF (congestive heart failure) Current Visit: Yes Status: Chronic (4) Chronic renal insufficiency Current Visit: No Status: Acute History Interval history: Patient was seen and evaluated this morning, bilateral lower extremity pain is getting better. S/P EKOS Hospitalist Physical - Physical exam Narrative exam: Not in cardiopulmonary distress. The patient is obese. Vital signs as documented. Head exam is unremarkable. No scleral icterus . Neck is without jugular venous distension, thyromegaly, or carotid bruits. Lungs are clear to auscultation. Cardiac exam reveals regular rate and Rhythm. First and second heart sounds normal. No murmurs, rubs or gallops. Abdominal exam reveals normal bowel sounds, no masses, no organomegaly and no aortic enlargement. Extremities are +1 pedal and pretibial edema. Swelling getting better. 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 No focal weakness. - Constitutional Vitals: Temp Pulse Resp BP Pulse Ox 98.3 F 71 16 111/67 99 09/09/17 12:50 09/09/17 12:50 09/09/17 12:50 09/09/17 12:50 09/09/17 12:50 General appearance: Present: no acute distress Results - Labs CBC & Chem 7: 09/09/17 07:01 09/09/17 07:01 Labs: Laboratory Last Values WBC 6.5 K/mm3 (4.5-11.0) 09/09/17 07:01 RBC 3.29 M/mm3 (3.65-5.03) L 09/09/17 07:01 Hgb 9.8 gm/dl (11.8-15.2) L 09/09/17 07:01 Hct 30.5 % (35.5-45.6) L 09/09/17 07:01 MCV 93 fl (84-94) 09/09/17 07:01 MCH 30 pg (28-32) 09/09/17 07:01 MCHC 32 % (32-34) 09/09/17 07:01 RDW 16.9 % (13.2-15.2) H 09/09/17 07:01 Plt Count 274 K/mm3 (140-440) 09/09/17 07:01 Lymph % (Auto) 5.8 % (13.4-35.0) L 09/06/17 03:55 [place] % (Auto) 7.4 % (0.0-7.3) H 09/06/17 03:55 Eos % (Auto) 1.1 % (0.0-4.3) 09/06/17 03:55 Baso % (Auto) [facility] 09/09/17 07:01 Lymph # 0.4 K/mm3 (1.2-5.4) L 09/06/17 03:55 [place] # 0.5 K/mm3 (0.0-0.8) 09/06/17 03:55 Eos # 0.1 K/mm3 (0.0-0.4) 09/06/17 03:55 Baso # 0.1 K/mm3 (0.0-0.1) 09/06/17 03:55 Add Manual Diff Complete 09/09/17 07:01 Total Counted 100 09/09/17 07:01 Seg Neutrophils % 84.3 % (40.0-70.0) H 09/06/17 03:55 Seg Neuts % (Manual) 85.0 % (40.0-70.0) H 09/09/17 07:01 Band Neutrophils % 1.0 % 09/09/17 07:01 Lymphocytes % (Manual) 6.0 % (13.4-35.0) L 09/09/17 07:01 Reactive Lymphs % (Man) 0 % 09/09/17 07:01 Monocytes % (Manual) 2.0 % (0.0-7.3) 09/09/17 07:01 Eosinophils % (Manual) 2.0 % (0.0-4.3) 09/09/17 07:01 Basophils % (Manual) 2.0 % (0.0-1.8) H 09/09/17 07:01 Metamyelocytes % 2.0 % 09/09/17 07:01 Myelocytes % 0 % 09/09/17 07:01 Promyelocytes % 0 % 09/09/17 07:01 Blast Cells % 0 % 09/09/17 07:01 Nucleated RBC % Not Reportable 09/09/17 07:01 Seg Neutrophils # 6.1 K/mm3 (1.8-7.7) 09/06/17 03:55 Seg Neutrophils # Man 5.5 K/mm3 (1.8-7.7) 09/09/17 07:01 Band Neutrophils # 0.1 K/mm3 09/09/17 07:01 Lymphocytes # (Manual) 0.4 K/mm3 (1.2-5.4) L 09/09/17 07:01 Abs React Lymphs (Man) 0.0 K/mm3 09/09/17 07:01 Monocytes # (Manual) 0.1 K/mm3 (0.0-0.8) 09/09/17 07:01 Eosinophils # (Manual) 0.1 K/mm3 (0.0-0.4) 09/09/17 07:01 Basophils # (Manual) 0.1 K/mm3 (0.0-0.1) 09/09/17 07:01 Metamyelocytes # 0.1 K/mm3 09/09/17 07:01 Myelocytes # 0.0 K/mm3 09/09/17 07:01 Promyelocytes # 0.0 K/mm3 09/09/17 07:01 Blast Cells # 0.0 K/mm3 09/09/17 07:01 WBC Morphology Not Reportable 09/09/17 07:01 Hypersegmented Neuts Not Reportable 09/09/17 07:01 Hyposegmented Neuts Not Reportable 09/09/17 07:01 Hypogranular Neuts Not Reportable 09/09/17 07:01 Smudge Cells Not Reportable 09/09/17 07:01 Toxic Granulation Not Reportable 09/09/17 07:01 Toxic Vacuolation Not Reportable 09/09/17 07:01 Dohle Bodies Not Reportable 09/09/17 07:01 Pelger-Huet Anomaly Not Reportable 09/09/17 07:01 [place] Rods Not Reportable 09/09/17 07:01 Platelet Estimate Appears normal 09/09/17 07:01 Clumped Platelets Not Reportable 09/09/17 07:01 Plt Clumps, EDTA Not Reportable 09/09/17 07:01 Large Platelets Not Reportable 09/09/17 07:01 Giant Platelets Not Reportable 09/09/17 07:01 Platelet Satelliting Not Reportable 09/09/17 07:01 Plt Morphology Comment Not Reportable 09/09/17 07:01 RBC Morphology Not Reportable 09/09/17 07:01 Dimorphic RBCs Not Reportable 09/09/17 07:01 Polychromasia Few 09/09/17 07:01 Hypochromasia Not Reportable 09/09/17 07:01 Poikilocytosis Not Reportable 09/09/17 07:01 Anisocytosis 1+ 09/09/17 07:01 Microcytosis Not Reportable 09/09/17 07:01 Macrocytosis Not Reportable 09/09/17 07:01 Spherocytes Not Reportable 09/09/17 07:01 Pappenheimer Bodies Not Reportable 09/09/17 07:01 Sickle Cells Not Reportable 09/09/17 07:01 Target Cells Not Reportable 09/09/17 07:01 Tear Drop Cells Rare 09/09/17 07:01 Ovalocytes 1+ 09/09/17 07:01 Helmet Cells Not Reportable 09/09/17 07:01 [place] Bodies Not Reportable 09/09/17 07:01 [place] Rings Not Reportable 09/09/17 07:01 [place] Cells Not Reportable 09/09/17 07:01 Bite Cells Not Reportable 09/09/17 07:01 Crenated Cell Not Reportable 09/09/17 07:01 Elliptocytes Few 09/09/17 07:01 Acanthocytes (Spur) Not Reportable 09/09/17 07:01 Rouleaux Not Reportable 09/09/17 07:01 Hemoglobin C Crystals Not Reportable 09/09/17 07:01 Schistocytes Not Reportable 09/09/17 07:01 Malaria parasites Not Reportable 09/09/17 07:01 [place] Bodies Not Reportable 09/09/17 07:01 Hem Pathologist Commnt No 09/09/17 07:01 PT 25.6 Sec. (12.2-14.9) H 09/09/17 07:01 INR 2.17 (0.87-1.13) H 09/09/17 07:01 APTT 89.1 Sec. (24.2-36.6) H* 09/04/17 09:48 Fibrinogen 306 mg/dl (211-480) 09/05/17 02:25 Heparin Anti-Xa Level 0.10 U.I./ml (0.3-0.7) L 09/05/17 02:25 Sodium 140 mmol/L (137-145) 09/09/17 07:01 Potassium 4.7 mmol/L (3.6-5.0) 09/09/17 07:01 Chloride 102.7 mmol/L (98-107) 09/09/17 07:01 Carbon Dioxide 25 mmol/L (22-30) 09/09/17 07:01 Anion Gap 17 mmol/L 09/09/17 07:01 BUN 44 mg/dL (9-20) H 09/09/17 07:01 Creatinine 2.1 mg/dL (0.8-1.5) H 09/09/17 07:01 Estimated GFR 38 ml/min 09/09/17 07:01 BUN/Creatinine Ratio 21 % 09/09/17 07:01 Glucose 120 mg/dL (75-100) H 09/09/17 07:01 Calcium 9.2 mg/dL (8.4-10.2) 09/09/17 07:01 Total Bilirubin 0.80 mg/dL (0.1-1.2) 08/31/17 22:04 AST 32 units/L (5-40) 08/31/17 22:04 ALT 31 units/L (7-56) 08/31/17 22:04 Alkaline Phosphatase 81 units/L (35-129) 08/31/17 22:04 Troponin T 0.061 ng/mL (0.00-0.029) H 09/01/17 00:10 NT-Pro-B Natriuret Pep 5787 pg/mL (0-900) H 09/01/17 00:10 Total Protein 6.1 g/dL (6.3-8.2) L 08/31/17 22:04 Albumin 3.2 g/dL (3.9-5) L 08/31/17 22:04 Albumin/Globulin Ratio 1.1 % 08/31/17 22:04 Triglycerides 148 mg/dL (2-149) 09/01/17 00:10 Cholesterol 170 mg/dL (50-199) 09/01/17 00:10 LDL Cholesterol Direct 97 mg/dL (50-130) 09/01/17 00:10 HDL Cholesterol 45 mg/dL (40-59) 09/01/17 00:10 Cholesterol/HDL Ratio 3.77 % 09/01/17 00:10 Urine Color Yellow (Yellow) 08/31/17 23:00 Urine Turbidity Clear (Clear) 08/31/17 23:00 Urine pH 5.0 (5.0-7.0) 08/31/17 23:00 Ur Specific [place] 1.015 (1.003-1.030) 08/31/17 23:00 Urine Protein 100 mg/dl mg/dL (Negative) 08/31/17 23:00 Urine Glucose (UA) Neg mg/dL (Negative) 08/31/17 23:00 Urine Ketones Neg mg/dL (Negative) 08/31/17 23:00 Urine Blood Neg (Negative) 08/31/17 23:00 Urine Nitrite Neg (Negative) 08/31/17 23:00 Urine Bilirubin Neg (Negative) 08/31/17 23:00 Urine Urobilinogen 2.0 mg/dL (<2.0) 08/31/17 23:00 Ur Leukocyte Esterase Neg (Negative) 08/31/17 23:00 Urine WBC (Auto) 3.0 /HPF (0.0-6.0) 08/31/17 23:00 Urine RBC (Auto) 2.0 /HPF (0.0-6.0) 08/31/17 23:00 U Epithel Cells (Auto) < 1.0 /HPF (0-13.0) 08/31/17 23:00 Hyaline Casts 1 /LPF 08/31/17 23:00 Urine Mucus Few /HPF 08/31/17 23:00 Urine Total Volume 750 09/02/17 04:00 Urine Creatinine 124.5 mg/dL (0.1-20.0) H 03/11/18 04:00 Height (in) 71.0 inches 09/02/17 04:00 Weight (lb) 280.0 lbs 09/02/17 04:00 Creatinine Clearance 17 09/02/17 04:00
[2017-09-09] MEDS: COUMADIN PO SCH ×2 (16:48)
[2017-09-10] MEDS: ALBURX 25% (ALBUMIN) IV SCH ×2 (05:27→17:49)
[2017-09-10] MEDS: LASIX IV SCH ×2 (05:55→17:09)
[2017-09-10 06:15] LABS: Hematocrit 29.4 % (35.5-45.6); Hemoglobin 9.5 gm/dl (11.8-15.2); Mean Corpuscular HGB Conc 32 % (32-34); Mean Corpuscular Hemoglobin 30 pg (28-32); Mean Corpuscular Volume 93 fl (84-94); Platelet Count 288 K/mm3 (140-440); Red Blood Count 3.18 M/mm3 (3.65-5.03); Red Cell Distribution Width 16.5 % (13.2-15.2)
[2017-09-10 06:40] LABS: Calcium 9.5 mg/dL (8.4-10.2)
[2017-09-10 07:06] LABS: INR 2.34 (0.87-1.13)
[2017-09-10] MEDS: MINIPRESS PO SCH ×2 (11:21→21:43)
[2017-09-10] MEDS: NEURONTIN PO SCH ×2 (11:21→21:43)
[2017-09-10] MEDS: ZYLOPRIM PO SCH ×2 (11:21→21:43)
[2017-09-10] MEDS: PROSCAR PO SCH (11:22)
[2017-09-10] MEDS: COREG PO SCH ×2 (11:22→21:43)
[2017-09-10] MEDS: ZAROXOLYN PO SCH (11:22)
[2017-09-10] MEDS: TYLENOL PO SCH ×2 (11:23→21:20)
[2017-09-10 11:24] LABS: Anisocytosis 1+; Macrocytosis Few; Myelocytes # (Manual) 0.1 K/mm3; Ovalocytes 1+; Platelet Estimate Consistent w Auto; Tear Drop Cells Few; Total Cells Counted 100
[2017-09-10] MEDS ORDERED: BABY ASPIRIN PO SCH (12:00)
--- NOTE | 2017-09-10 12:48 | Progress Note ---
Assessment and Plan - Patient Problems (1) CKD (chronic kidney disease) stage 3, GFR 30-59 ml/min Current Visit: No Status: Chronic Plan to address problem: non oliguric, renal function stable. S/P bilateral LE thrombolysis and mechanical thrombectomy-vascular surgery notes reviewed. Discussed with pt and . Edema improving, may switch to oral diuretics. Needs outpt follow up for CKD (2) Myeloma Current Visit: Yes Status: Chronic (3) DVT, bilateral lower limbs Current Visit: Yes Status: Acute (4) Chronic systolic CHF (congestive heart failure) Current Visit: Yes Status: Chronic (5) Hypertension Current Visit: No Status: Chronic (6) Anemia in CKD (chronic kidney disease) Current Visit: Yes Status: Chronic (7) Edema Current Visit: Yes Status: Acute Subjective Date of service: 09/10/17 Principal diagnosis: DVT s/p EKOS , Severe CMP Interval history: alert, oriented, denies CP or SOB Objective - Vital Signs Vital signs: Vital Signs - 12hr 09/10/17 09/10/17 09/10/17 04:16 08:37 11:21 Temperature 98.3 F 98.4 F Pulse Rate 73 80 70 Respiratory 18 20 Rate Blood Pressure 122/75 129/79 129/79 O2 Sat by Pulse 96 97 Oximetry 09/10/17 09/10/17 11:22 11:23 Temperature Pulse Rate 70 Respiratory 20 Rate Blood Pressure 129/79 O2 Sat by Pulse Oximetry - General Appearance General appearance: well-developed EENT: mucous membranes moist Neck: no JVD Respiratory: Present: Decreased Breath Sounds Cardiology: regular, S1S2 Gastrointestinal: normoactive bowel sounds Musculoskeletal: other (1+edema) Psychiatric: mood/affect appropriate, cooperative - Lab 09/10/17 05:42 09/10/17 05:42 Most recent lab results Calcium 9.5 mg/dL (8.4-10.2) 09/10/17 05:42 Urine Creatinine 124.5 mg/dL (0.1-20.0) H 09/02/17 04:00 Ur Total Protein 24 Hr 918.00 (2-200) H 09/08/17 18:00 Urine Total Protein 34 mg/dL (5-11.8) H 09/08/17 18:00
[2017-09-10] MEDS: PEPCID PO SCH ×2 (12:51→21:43)
--- NOTE | 2017-09-10 14:22 | Progress Note ---
Assessment and Plan Assessment and plan: Acute on chronic CHF exacerbation - Cardiology is following - AICD in situ - Currently stable CKD - Nephrology consulted Bilateral leg swelling - Nephrology recommend aggressive diuresis Multiple myeloma, back pain - Oncology consult appreciated Bilateral lower extremity DVT, history of DVT status post filter -Patient was on heparin and Coumadin, INR this morning is therapeutic, discontinued heparin and patient is on Coumadin 5 mg and managed by pharmacy -Vascular surgery did EKOS -baloon angioplasty and thrombectomy was done in the LE veins DVT prophylaxis -Therapeutic warfarin Disposition - possible DC tomorrow. - Nephrology recommend aggressive diuresis. - Patient Problems (1) CHF (congestive heart failure) Current Visit: Yes Status: Acute (2) DVT, bilateral lower limbs Current Visit: Yes Status: Acute (3) Chronic systolic CHF (congestive heart failure) Current Visit: Yes Status: Chronic (4) Chronic renal insufficiency Current Visit: No Status: Acute History Interval history: Patient was seen and evaluated this morning, bilateral lower extremity swelling is getting better. S/P EKOS Hospitalist Physical - Physical exam Narrative exam: Not in cardiopulmonary distress. The patient is obese. Vital signs as documented. Head exam is unremarkable. No scleral icterus . Neck is without jugular venous distension, thyromegaly, or carotid bruits. Lungs are clear to auscultation. Cardiac exam reveals regular rate and Rhythm. First and second heart sounds normal. No murmurs, rubs or gallops. Abdominal exam reveals normal bowel sounds, no masses, no organomegaly and no aortic enlargement. Extremities are +1 pedal and pretibial edema. Swelling getting better. PAINTER HAND: Alert and oriented 3. No focal weakness. - Constitutional Vitals: Temp Pulse Resp BP Pulse Ox 98.4 F 70 20 129/79 97 09/10/17 08:37 09/10/17 11:22 09/10/17 11:23 09/10/17 11:22 09/10/17 08:37 General appearance: Present: no acute distress Results - Labs CBC & Chem 7: 09/10/17 05:42 09/10/17 05:42 Labs: Laboratory Last Values WBC 7.3 K/mm3 (4.5-11.0) 09/10/17 05:42 RBC 3.18 M/mm3 (3.65-5.03) L 09/10/17 05:42 Hgb 9.5 gm/dl (11.8-15.2) L 09/10/17 05:42 Hct 29.4 % (35.5-45.6) L 09/10/17 05:42 MCV 93 fl (84-94) 09/10/17 05:42 MCH 30 pg (28-32) 09/10/17 05:42 MCHC 32 % (32-34) 09/10/17 05:42 RDW 16.5 % (13.2-15.2) H 09/10/17 05:42 Plt Count 288 K/mm3 (140-440) 09/10/17 05:42 Lymph % (Auto) 5.8 % (13.4-35.0) L 09/06/17 03:55 Brooke % (Auto) 7.4 % (0.0-7.3) H 09/06/17 03:55 Eos % (Auto) 1.1 % (0.0-4.3) 09/06/17 03:55 Baso % (Auto) 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 Machine Operator 09/10/17 05:42 Lymph # 0.4 K/mm3 (1.2-5.4) L 09/06/17 03:55 Brooke # 0.5 K/mm3 (0.0-0.8) 09/06/17 03:55 Eos # 0.1 K/mm3 (0.0-0.4) 09/06/17 03:55 Baso # 0.1 K/mm3 (0.0-0.1) 09/06/17 03:55 Add Manual Diff Complete 09/10/17 05:42 Total Counted 100 09/10/17 05:42 Seg Neutrophils % 84.3 % (40.0-70.0) H 09/06/17 03:55 Seg Neuts % (Manual) 86.0 % (40.0-70.0) H 09/10/17 05:42 Band Neutrophils % 0 % 09/10/17 05:42 Lymphocytes % (Manual) 4.0 % (13.4-35.0) L 09/10/17 05:42 Reactive Lymphs % (Man) 0 % 09/10/17 05:42 Monocytes % (Manual) 6.0 % (0.0-7.3) 09/10/17 05:42 Eosinophils % (Manual) 1.0 % (0.0-4.3) 09/10/17 05:42 Basophils % (Manual) 1.0 % (0.0-1.8) 09/10/17 05:42 Metamyelocytes % 1.0 % 09/10/17 05:42 Myelocytes % 1.0 % 09/10/17 05:42 Promyelocytes % 0 % 09/10/17 05:42 Blast Cells % 0 % 09/10/17 05:42 Nucleated RBC % Not Reportable 09/10/17 05:42 Seg Neutrophils # 6.1 K/mm3 (1.8-7.7) 09/06/17 03:55 Seg Neutrophils # Man 6.3 K/mm3 (1.8-7.7) 09/10/17 05:42 Band Neutrophils # 0.0 K/mm3 09/10/17 05:42 Lymphocytes # (Manual) 0.3 K/mm3 (1.2-5.4) L 09/10/17 05:42 Abs React Lymphs (Man) 0.0 K/mm3 09/10/17 05:42 Monocytes # (Manual) 0.4 K/mm3 (0.0-0.8) 09/10/17 05:42 Eosinophils # (Manual) 0.1 K/mm3 (0.0-0.4) 09/10/17 05:42 Basophils # (Manual) 0.1 K/mm3 (0.0-0.1) 09/10/17 05:42 Metamyelocytes # 0.1 K/mm3 09/10/17 05:42 Myelocytes # 0.1 K/mm3 09/10/17 05:42 Promyelocytes # 0.0 K/mm3 09/10/17 05:42 Blast Cells # 0.0 K/mm3 09/10/17 05:42 WBC Morphology Not Reportable 09/10/17 05:42 Hypersegmented Neuts Not Reportable 09/10/17 05:42 Hyposegmented Neuts Not Reportable 09/10/17 05:42 Hypogranular Neuts Not Reportable 09/10/17 05:42 Smudge Cells Not Reportable 09/10/17 05:42 Toxic Granulation Not Reportable 09/10/17 05:42 Toxic Vacuolation Not Reportable 09/10/17 05:42 Dohle Bodies Not Reportable 09/10/17 05:42 Pelger-Huet Anomaly Not Reportable 09/10/17 05:42 Galilea Rods Not Reportable 09/10/17 05:42 Platelet Estimate Consistent w auto 09/10/17 05:42 Clumped Platelets Not Reportable 09/10/17 05:42 Plt Clumps, EDTA Not Reportable 09/10/17 05:42 Large Platelets Not Reportable 09/10/17 05:42 Giant Platelets Not Reportable 09/10/17 05:42 Platelet Satelliting Not Reportable 09/10/17 05:42 Plt Morphology Comment Not Reportable 09/10/17 05:42 RBC Morphology Not Reportable 09/10/17 05:42 Dimorphic RBCs Not Reportable 09/10/17 05:42 Polychromasia Not Reportable 09/10/17 05:42 Hypochromasia Not Reportable 09/10/17 05:42 Poikilocytosis Not Reportable 09/10/17 05:42 Anisocytosis 1+ 09/10/17 05:42 Microcytosis Few 09/10/17 05:42 Macrocytosis Few 09/10/17 05:42 Spherocytes Not Reportable 09/10/17 05:42 Pappenheimer Bodies Not Reportable 09/10/17 05:42 Sickle Cells Not Reportable 09/10/17 05:42 Target Cells Not Reportable 09/10/17 05:42 Tear Drop Cells Few 09/10/17 05:42 Ovalocytes 1+ 09/10/17 05:42 Helmet Cells Not Reportable 09/10/17 05:42 Broussard-Horton Bodies Not Reportable 09/10/17 05:42 [place] Rings Not Reportable 09/10/17 05:42 [place] Cells Not Reportable 09/10/17 05:42 Bite Cells Not Reportable 09/10/17 05:42 Crenated Cell Not Reportable 09/10/17 05:42 Elliptocytes Not Reportable 09/10/17 05:42 Acanthocytes (Spur) Not Reportable 09/10/17 05:42 Rouleaux Not Reportable 09/10/17 05:42 Hemoglobin C Crystals Not Reportable 09/10/17 05:42 Schistocytes Not Reportable 09/10/17 05:42 Malaria parasites Not Reportable 09/10/17 05:42 Raciel Bodies Not Reportable 09/10/17 05:42 Hem Pathologist Commnt No 09/10/17 05:42 PT 27.2 Sec. (12.2-14.9) H 09/10/17 05:42 INR 2.34 (0.87-1.13) H 09/10/17 05:42 APTT 89.1 Sec. (24.2-36.6) H* 09/04/17 09:48 Fibrinogen 306 mg/dl (211-480) 09/05/17 02:25 Heparin Anti-Xa Level 0.10 U.I./ml (0.3-0.7) L 09/05/17 02:25 Sodium 139 mmol/L (137-145) 09/10/17 05:42 Potassium 4.3 mmol/L (3.6-5.0) 09/10/17 05:42 Chloride 99.3 mmol/L (98-107) 09/10/17 05:42 Carbon Dioxide 25 mmol/L (22-30) 09/10/17 05:42 Anion Gap 19 mmol/L 09/10/17 05:42 BUN 43 mg/dL (9-20) H 09/10/17 05:42 Creatinine 2.0 mg/dL (0.8-1.5) H 09/10/17 05:42 Estimated GFR 40 ml/min 09/10/17 05:42 BUN/Creatinine Ratio 22 % 09/10/17 05:42 Glucose 113 mg/dL (75-100) H 09/10/17 05:42 Calcium 9.5 mg/dL (8.4-10.2) 09/10/17 05:42 Total Bilirubin 0.80 mg/dL (0.1-1.2) 08/31/17 22:04 AST 32 units/L (5-40) 08/31/17 22:04 ALT 31 units/L (7-56) 08/31/17 22:04 Alkaline Phosphatase 81 units/L (35-129) 08/31/17 22:04 Troponin T 0.061 ng/mL (0.00-0.029) H 09/01/17 00:10 NT-Pro-B Natriuret Pep 5787 pg/mL (0-900) H 09/01/17 00:10 Total Protein 6.1 g/dL (6.3-8.2) L 08/31/17 22:04 Albumin 3.2 g/dL (3.9-5) L 08/31/17 22:04 Albumin/Globulin Ratio 1.1 % 08/31/17 22:04 Triglycerides 148 mg/dL (2-149) 09/01/17 00:10 Cholesterol 170 mg/dL (50-199) 09/01/17 00:10 LDL Cholesterol Direct 97 mg/dL (50-130) 09/01/17 00:10 HDL Cholesterol 45 mg/dL (40-59) 09/01/17 00:10 Cholesterol/HDL Ratio 3.77 % 09/01/17 00:10 Urine Color Yellow (Yellow) 08/31/17 23:00 Urine Turbidity Clear (Clear) 08/31/17 23:00 Urine pH 5.0 (5.0-7.0) 08/31/17 23:00 Ur Specific Hector 1.015 (1.003-1.030) 08/31/17 23:00 Urine Protein 100 mg/dl mg/dL (Negative) 08/31/17 23:00 Urine Glucose (UA) Neg mg/dL (Negative) 08/31/17 23:00 Urine Ketones Neg mg/dL (Negative) 08/31/17 23:00 Urine Blood Neg (Negative) 08/31/17 23:00 Urine Nitrite Neg (Negative) 08/31/17 23:00 Urine Bilirubin Neg (Negative) 08/31/17 23:00 Urine Urobilinogen 2.0 mg/dL (<2.0) 08/31/17 23:00 Ur Leukocyte Esterase Neg (Negative) 08/31/17 23:00 Urine WBC (Auto) 3.0 /HPF (0.0-6.0) 08/31/17 23:00 Urine RBC (Auto) 2.0 /HPF (0.0-6.0) 08/31/17 23:00 U Epithel Cells (Auto) < 1.0 /HPF (0-13.0) 08/31/17 23:00 Hyaline Casts 1 /LPF 08/31/17 23:00 Urine Mucus Few /HPF 08/31/17 23:00 Urine Total Volume 2700 09/08/17 18:00 Urine Creatinine 124.5 mg/dL (0.1-20.0) H 09/02/17 04:00 Height (in) 71.0 inches 09/02/17 04:00 Weight (lb) 280.0 lbs 09/02/17 04:00 Creatinine Clearance 09/02/17 04:00 Ur Total Protein 24 Hr 918.00 (2-200) H 09/08/17 18:00 Urine Total Protein 34 mg/dL (5-11.8) H 09/08/17 18:00
[2017-09-10] MEDS: COUMADIN PO SCH ×2 (17:09→17:10)
--- NOTE | 2017-09-10 20:23 | Progress Note ---
Assessment and Plan Imp: 1. MOJGAN/CKD 2. Bilateral acute DVT 3. Dilated CMP 4. Chronic systolic CHF 5. Obesity 6. EFE Rec: 1. Diuresis per renal 2. Coumadin 3. Weight loss 4. F/u with Dr. Lynn 1-2 weeks after d/c to have repeat sleep studies and obtain new CPAP machine 5. Can go home [email or web address]; will sign off but please call with questions, or if new issues arise Plan of care reviewed with patient, he understands/agrees Subjective Date of service: 09/10/17 Principal diagnosis: DVT s/p EKOS , Severe CMP Interval history: No events. No SOB. On RA. LE edema better. No new complaints. Active Medications Acetaminophen (Tylenol) 1,000 mg PO BID [facility] Last Admin: 09/10/17 11:23 Dose: 1,000 mg Acetaminophen/Hydrocodone Bitart ([place] 5/325) 2 each PO Q6H PRN PRN Reason: Pain, Moderate (4-6) Last Admin: 09/05/17 16:49 Dose: 2 each Albumin Human ([place] 25% (Albumin)) 25 gm IV Q12H [facility] Last Admin: 09/10/17 17:49 Dose: 25 gm Albuterol (Proventil) 2.5 mg IH Q4HRT PRN PRN Reason: Shortness Of Breath Allopurinol (Zyloprim) 200 mg PO BID [facility] Last Admin: 09/10/17 11:21 Dose: 200 mg Aspirin (Baby Aspirin) 81 mg PO QDAY [facility] Carvedilol (Coreg) 12.5 mg PO BID [facility] Last Admin: 09/10/17 11:22 Dose: 12.5 mg Famotidine (Pepcid) 20 mg PO BID [facility] Last Admin: 09/10/17 12:51 Dose: 20 mg Finasteride (Proscar) 5 mg PO QDAY [facility] Last Admin: 09/10/17 11:22 Dose: 5 mg Furosemide (Lasix) 40 mg IV 0600,1800 [facility] Last Admin: 09/10/17 17:09 Dose: 40 mg Gabapentin (Neurontin) 300 mg PO BID [facility] Last Admin: 09/10/17 11:21 Dose: 300 mg Metolazone (Zaroxolyn) 5 mg PO QDAY [facility] Last Admin: 09/10/17 11:22 Dose: 5 mg Morphine Sulfate (Morphine) 4 mg IV Q4H PRN PRN Reason: Pain , Severe (7-10) Last Admin: 09/04/17 18:31 Dose: 4 mg Ondansetron HCl (Zofran) 4 mg IV Q8H PRN PRN Reason: Nausea And Vomiting Oxycodone/Acetaminophen (Percocet 5/325) 2 tab PO Q6H PRN PRN Reason: Moder Pain unrelieved by Revillo Last Admin: 09/03/17 11:23 Dose: 2 tab Prazosin HCl (Minipress) 1 mg PO Q12HR [facility] Last Admin: 09/10/17 11:21 Dose: 1 mg Warfarin Sodium (Coumadin) 5 mg PO DAILY@1700 [facility] Last Admin: 09/10/17 17:09 Dose: 5 mg Warfarin Sodium (Coumadin) 1 mg PO DAILY@1700 [facility] Last Admin: 09/10/17 17:10 Dose: 1 mg Objective Vital Signs - 12hr 09/10/17 09/10/17 09/10/17 08:37 10:00 11:21 Temperature 98.4 F Pulse Rate 80 72 70 Pulse Rate [ From Monitor] Respiratory 20 Rate Blood Pressure 129/79 129/79 O2 Sat by Pulse 97 Oximetry 09/10/17 09/10/17 09/10/17 11:22 11:23 11:41 Temperature 98.5 F Pulse Rate 70 72 Pulse Rate [ From Monitor] Respiratory 20 20 Rate Blood Pressure 129/79 109/73 O2 Sat by Pulse 100 Oximetry 09/10/17 09/10/17 14:00 17:11 Temperature 98.1 F Pulse Rate 75 Pulse Rate [ 72 From Monitor] Respiratory 20 20 Rate Blood Pressure 112/70 O2 Sat by Pulse 96 99 Oximetry Constitutional: no acute distress, alert Eyes: non-icteric ENT: oropharynx moist Neck: supple Effort: normal Ascultation: Bilateral: clear Cardiovascular: regular rate and rhythm (no mrg) Gastrointestinal: normoactive bowel sounds, non-distended Integumentary: normal Extremities: edema (1+ bilateral LE edema) Neurologic: normal mental status, non-focal exam, pupils equal and round, CN II- XII normal, motor strength normal and Psychiatric: mood appropriate, affect normal CBC and BMP: 09/10/17 05:42 09/10/17 05:42 ABG, PT/INR, D-dimer: PT/INR, D-dimer PT 27.2 Sec. (12.2-14.9) H 09/10/17 05:42 INR 2.34 (0.87-1.13) H 09/10/17 05:42 Abnormal lab findings: Abnormal Labs 08/31/17 08/31/17 09/01/17 22:04 22:04 00:10 RBC Hgb Hct RDW 17.3 H Lymph % (Auto) 4.9 L [place] % (Auto) 14.4 H Baso % (Auto) Lymph # 0.3 L [place] # 0.9 H Seg Neutrophils % 78.2 H Seg Neuts % (Manual) Lymphocytes % (Manual) Basophils % (Manual) Lymphocytes # (Manual) PT INR APTT Fibrinogen Heparin Anti-Xa Level Sodium Potassium 5.2 H Chloride 97.2 L BUN 52 H Creatinine 2.7 H Glucose 152 H Troponin T 0.061 H NT-Pro-B Natriuret Pep 5787 H Total Protein 6.1 L Albumin 3.2 L Urine Creatinine Ur Total Protein 24 Hr Urine Total Protein 09/01/17 09/01/17 09/02/17 17:43 21:24 00:18 RBC Hgb Hct RDW Lymph % (Auto) [place] % (Auto) Baso % (Auto) Lymph # [place] # Seg Neutrophils % Seg Neuts % (Manual) Lymphocytes % (Manual) Basophils % (Manual) Lymphocytes # (Manual) PT 15.1 H INR APTT Fibrinogen Heparin Anti-Xa Level < 0.10 L Sodium 134 L Potassium Chloride 94.5 L BUN 52 H Creatinine 2.7 H Glucose 137 H Troponin T NT-Pro-B Natriuret Pep Total Protein Albumin Urine Creatinine Ur Total Protein 24 Hr Urine Total Protein 09/02/17 09/02/17 09/02/17 04:00 09:09 09:09 RBC Hgb 11.4 L Hct 35.1 L RDW 17.1 H Lymph % (Auto) 8.2 L [place] % (Auto) 13.9 H Baso % (Auto) Lymph # 0.5 L [place] # Seg Neutrophils % 73.6 H Seg Neuts % (Manual) Lymphocytes % (Manual) Basophils % (Manual) Lymphocytes # (Manual) PT INR APTT Fibrinogen Heparin Anti-Xa Level Sodium 134 L Potassium Chloride 96.4 L BUN 54 H Creatinine 2.8 H Glucose 134 H Troponin T NT-Pro-B Natriuret Pep Total Protein Albumin Urine Creatinine 124.5 H Ur Total Protein 24 Hr Urine Total Protein 09/02/17 09/03/17 09/03/17 09:09 04:24 04:28 RBC Hgb 11.3 L Hct 33.9 L RDW Lymph % (Auto) [place] % (Auto) Baso % (Auto) Lymph # [place] # Seg Neutrophils % Seg Neuts % (Manual) Lymphocytes % (Manual) Basophils % (Manual) Lymphocytes # (Manual) PT 16.0 H 15.9 H INR 1.21 H 1.20 H APTT Fibrinogen Heparin Anti-Xa Level 0.18 L Sodium Potassium Chloride BUN Creatinine Glucose Troponin T NT-Pro-B Natriuret Pep Total Protein Albumin Urine Creatinine Ur Total Protein 24 Hr Urine Total Protein 09/03/17 09/04/17 09/04/17 18:51 05:45 09:48 RBC Hgb Hct RDW Lymph % (Auto) [place] % (Auto) Baso % (Auto) Lymph # [place] # Seg Neutrophils % Seg Neuts % (Manual) Lymphocytes % (Manual) Basophils % (Manual) Lymphocytes # (Manual) PT 18.9 H 19.2 H INR 1.49 H 1.52 H APTT 89.1 H* Fibrinogen 728 H Heparin Anti-Xa Level 0.18 L 0.27 L Sodium Potassium Chloride BUN Creatinine Glucose Troponin T NT-Pro-B Natriuret Pep Total Protein Albumin Urine Creatinine Ur Total Protein 24 Hr Urine Total Protein 09/04/17 09/04/17 09/04/17 09:48 09:48 20:47 RBC Hgb 11.7 L 11.1 L Hct 35.0 L RDW 17.3 H 17.3 H Lymph % (Auto) 8.0 L 4.7 L [place] % (Auto) 8.3 H 8.9 H Baso % (Auto) 2.4 H Lymph # 0.5 L 0.3 L [place] # Seg Neutrophils % 78.9 H 83.9 H Seg Neuts % (Manual) Lymphocytes % (Manual) Basophils % (Manual) Lymphocytes # (Manual) PT INR APTT Fibrinogen Heparin Anti-Xa Level Sodium 134 L Potassium 5.1 H Chloride 94.7 L BUN 56 H Creatinine 2.8 H Glucose 130 H Troponin T NT-Pro-B Natriuret Pep Total Protein Albumin Urine Creatinine Ur Total Protein 24 Hr Urine Total Protein 09/04/17 09/05/17 09/05/17 20:47 02:25 02:25 RBC 3.55 L Hgb 10.8 L Hct 32.7 L RDW 17.3 H Lymph % (Auto) 4.1 L [place] % (Auto) 8.7 H Baso % (Auto) Lymph # 0.3 L [place] # Seg Neutrophils % 84.9 H Seg Neuts % (Manual) Lymphocytes % (Manual) Basophils % (Manual) Lymphocytes # (Manual) PT 24.8 H INR 2.09 H APTT Fibrinogen Heparin Anti-Xa Level < 0.10 L 0.10 L Sodium Potassium Chloride BUN Creatinine Glucose Troponin T NT-Pro-B Natriuret Pep Total Protein Albumin Urine Creatinine Ur Total Protein 24 Hr Urine Total Protein 09/05/17 09/06/17 09/06/17 02:25 03:55 03:55 RBC Hgb Hct RDW Lymph % (Auto) [place] % (Auto) Baso % (Auto) Lymph # [place] # Seg Neutrophils % Seg Neuts % (Manual) Lymphocytes % (Manual) Basophils % (Manual) Lymphocytes # (Manual) PT 36.2 H INR 3.34 H APTT Fibrinogen Heparin Anti-Xa Level Sodium 136 L Potassium 5.3 H Chloride BUN 55 H 54 H Creatinine 2.5 H 2.4 H Glucose 138 H 115 H Troponin T NT-Pro-B Natriuret Pep Total Protein Albumin Urine Creatinine Ur Total Protein 24 Hr Urine Total Protein 09/06/17 09/07/17 09/07/17 03:55 03:21 03:21 RBC 3.56 L Hgb 10.9 L 10.5 L Hct 33.5 L 33.3 L RDW 17.2 H Lymph % (Auto) 5.8 L [place] % (Auto) 7.4 H Baso % (Auto) Lymph # 0.4 L [place] # Seg Neutrophils % 84.3 H Seg Neuts % (Manual) Lymphocytes % (Manual) Basophils % (Manual) Lymphocytes # (Manual) PT 31.2 H INR 2.77 H APTT Fibrinogen Heparin Anti-Xa Level Sodium Potassium Chloride BUN Creatinine Glucose Troponin T NT-Pro-B Natriuret Pep Total Protein Albumin Urine Creatinine Ur Total Protein 24 Hr Urine Total Protein 09/07/17 09/08/17 09/08/17 03:21 06:55 06:59 RBC Hgb Hct RDW Lymph % (Auto) [place] % (Auto) Baso % (Auto) Lymph # [place] # Seg Neutrophils % Seg Neuts % (Manual) Lymphocytes % (Manual) Basophils % (Manual) Lymphocytes # (Manual) PT 26.9 H INR 2.31 H APTT Fibrinogen Heparin Anti-Xa Level Sodium Potassium 5.7 H Chloride BUN 52 H 47 H Creatinine 2.3 H 2.0 H Glucose 108 H 109 H Troponin T NT-Pro-B Natriuret Pep Total Protein Albumin Urine Creatinine Ur Total Protein 24 Hr Urine Total Protein 09/08/17 09/09/17 09/09/17 18:00 07:01 07:01 RBC 3.29 L Hgb 9.8 L Hct 30.5 L RDW 16.9 H Lymph % (Auto) [place] % (Auto) Baso % (Auto) Lymph # [place] # Seg Neutrophils % Seg Neuts % (Manual) 85.0 H Lymphocytes % (Manual) 6.0 L Basophils % (Manual) 2.0 H Lymphocytes # (Manual) 0.4 L PT 25.6 H INR 2.17 H APTT Fibrinogen Heparin Anti-Xa Level Sodium Potassium Chloride BUN Creatinine Glucose Troponin T NT-Pro-B Natriuret Pep Total Protein Albumin Urine Creatinine Ur Total Protein 24 Hr 918.00 H Urine Total Protein 34 H 09/09/17 09/10/17 09/10/17 07:01 05:42 05:42 RBC 3.18 L Hgb 9.5 L Hct 29.4 L RDW 16.5 H Lymph % (Auto) [place] % (Auto) Baso % (Auto) Lymph # [place] # Seg Neutrophils % Seg Neuts % (Manual) 86.0 H Lymphocytes % (Manual) 4.0 L Basophils % (Manual) Lymphocytes # (Manual) 0.3 L PT 27.2 H INR 2.34 H APTT Fibrinogen Heparin Anti-Xa Level Sodium Potassium Chloride BUN 44 H Creatinine 2.1 H Glucose 120 H Troponin T NT-Pro-B Natriuret Pep Total Protein Albumin Urine Creatinine Ur Total Protein 24 Hr Urine Total Protein 09/10/17 05:42 RBC Hgb Hct RDW Lymph % (Auto) [place] % (Auto) Baso % (Auto) Lymph # [place] # Seg Neutrophils % Seg Neuts % (Manual) Lymphocytes % (Manual) Basophils % (Manual) Lymphocytes # (Manual) PT INR APTT Fibrinogen Heparin Anti-Xa Level Sodium Potassium Chloride BUN 43 H Creatinine 2.0 H Glucose 113 H Troponin T NT-Pro-B Natriuret Pep Total Protein Albumin Urine Creatinine Ur Total Protein 24 Hr Urine Total Protein Chest x-ray: report reviewed, image reviewed CT scan - chest: report reviewed, image reviewed
[2017-09-11] MEDS: ALBURX 25% (ALBUMIN) IV SCH (05:23)
[2017-09-11 05:54] LABS: Hematocrit 30.5 % (35.5-45.6); Mean Corpuscular HGB Conc 33 % (32-34); Mean Corpuscular Hemoglobin 30 pg (28-32); Mean Corpuscular Volume 92 fl (84-94); Platelet Count 312 K/mm3 (140-440); Red Blood Count 3.31 M/mm3 (3.65-5.03); Red Cell Distribution Width 17.1 % (13.2-15.2)
[2017-09-11 06:00] LABS: INR 2.43 (0.87-1.13)
[2017-09-11] MEDS: LASIX IV SCH (06:11)
[2017-09-11 06:15] LABS: Calcium 9.4 mg/dL (8.4-10.2)
[2017-09-11 09:49] LABS: Anisocytosis 1+; Band Neutrophils # (Manual) 0.2 K/mm3; Basophils % (Manual) 0 % (0.0-1.8); Macrocytosis 1+; Ovalocytes Rare; Platelet Estimate Consistent w Auto; Tear Drop Cells Rare; Total Cells Counted 100
[2017-09-11] MEDS ORDERED: BABY ASPIRIN PO SCH (10:00)
--- NOTE | 2017-09-11 10:02 | Hem/Onc Progress Note ---
Assessment and Plan Patient to go home on Coumadin. Keep INR between 2 and 3. supportive care. To get physical therapy prior to discharge Subjective Date of service: 09/11/17 Interval history: Patient status post E Kos. Feels better. Trying to increase mobility. Still not able to walk he states on his own. Objective - Constitutional Vitals: Last Vital Signs Temp 98.6 F 09/11/17 05:17 Pulse 79 09/11/17 05:17 Resp 18 09/11/17 05:17 BP 122/79 09/11/17 05:17 Pulse Ox 98 09/11/17 05:17 General appearance: no acute distress - Neck Neck: supple - Respiratory Respiratory effort: Positive: normal - Cardiovascular Rhythm: regular Extremities: abnormal (bilateral pedal edema improved) - Gastrointestinal General gastrointestinal: Present: soft - Labs Lab Results: Laboratory Results - last 24 hr 09/10/17 09/11/17 09/11/17 05:42 05:05 05:05 WBC 8.0 RBC 3.31 L Hgb 10.0 L Hct 30.5 L MCV 92 MCH 30 MCHC 33 RDW 17.1 H Plt Count 312 Add Manual Diff Complete Complete Total Counted 100 100 Seg Neuts % (Manual) 86.0 H 84.0 H Band Neutrophils % 0 3.0 Lymphocytes % (Manual) 4.0 L 6.0 L Reactive Lymphs % (Man) 0 1.0 Monocytes % (Manual) 6.0 2.0 Eosinophils % (Manual) 1.0 2.0 Basophils % (Manual) 1.0 0 Metamyelocytes % 1.0 2.0 Myelocytes % 1.0 0 Promyelocytes % 0 0 Blast Cells % 0 0 Nucleated RBC % Not Reportable Not Reportable Seg Neutrophils # Man 6.3 6.7 Band Neutrophils # 0.0 0.2 Lymphocytes # (Manual) 0.3 L 0.5 L Abs React Lymphs (Man) 0.0 0.1 Monocytes # (Manual) 0.4 0.2 Eosinophils # (Manual) 0.1 0.2 Basophils # (Manual) 0.1 0.0 Metamyelocytes # 0.1 0.2 Myelocytes # 0.1 0.0 Promyelocytes # 0.0 0.0 Blast Cells # 0.0 0.0 WBC Morphology Not Reportable Not Reportable Hypersegmented Neuts Not Reportable Not Reportable Hyposegmented Neuts Not Reportable Not Reportable Hypogranular Neuts Not Reportable Not Reportable Smudge Cells Not Reportable Not Reportable Toxic Granulation Not Reportable Not Reportable Toxic Vacuolation Not Reportable Not Reportable Dohle Bodies Not Reportable Not Reportable Pelger-Huet Anomaly Not Reportable Not Reportable Galilea Rods Not Reportable Not Reportable Platelet Estimate Consistent w auto Consistent w auto Clumped Platelets Not Reportable Not Reportable Plt Clumps, EDTA Not Reportable Not Reportable Large Platelets Not Reportable Not Reportable Giant Platelets Not Reportable Not Reportable Platelet Satelliting Not Reportable Not Reportable Plt Morphology Comment Not Reportable Not Reportable RBC Morphology Not Reportable Not Reportable Dimorphic RBCs Not Reportable Not Reportable Polychromasia Not Reportable Rare Hypochromasia Not Reportable Not Reportable Poikilocytosis Not Reportable Not Reportable Anisocytosis 1+ 1+ Microcytosis Few Not Reportable Macrocytosis Few 1+ Spherocytes Not Reportable Not Reportable Pappenheimer Bodies Not Reportable Not Reportable Sickle Cells Not Reportable Not Reportable Target Cells Not Reportable Not Reportable Tear Drop Cells Few Rare Ovalocytes 1+ Rare Helmet Cells Not Reportable Not Reportable Broussard-Glenford Bodies Not Reportable Not Reportable [place] Rings Not Reportable Not Reportable [place] Cells Not Reportable Not Reportable Bite Cells Not Reportable Not Reportable Crenated Cell Not Reportable Not Reportable Elliptocytes Not Reportable Not Reportable Acanthocytes (Spur) Not Reportable Not Reportable Rouleaux Not Reportable Not Reportable Hemoglobin C Crystals Not Reportable Not Reportable Schistocytes Not Reportable Not Reportable Malaria parasites Not Reportable Not Reportable Raciel Bodies Not Reportable Not Reportable Hem Pathologist Commnt No No PT 28.0 H INR 2.43 H Sodium Potassium Chloride Carbon Dioxide Anion Gap BUN Creatinine Estimated GFR BUN/Creatinine Ratio Glucose Calcium 09/11/17 05:05 WBC RBC Hgb Hct MCV MCH MCHC RDW Plt Count Add Manual Diff Total Counted Seg Neuts % (Manual) Band Neutrophils % Lymphocytes % (Manual) Reactive Lymphs % (Man) Monocytes % (Manual) Eosinophils % (Manual) Basophils % (Manual) Metamyelocytes % Myelocytes % Promyelocytes % Blast Cells % Nucleated RBC % Seg Neutrophils # Man Band Neutrophils # Lymphocytes # (Manual) Abs React Lymphs (Man) Monocytes # (Manual) Eosinophils # (Manual) Basophils # (Manual) Metamyelocytes # Myelocytes # Promyelocytes # Blast Cells # WBC Morphology Hypersegmented Neuts Hyposegmented Neuts Hypogranular Neuts Smudge Cells Toxic Granulation Toxic Vacuolation Dohle Bodies Pelger-Huet Anomaly Galile[place] Rods Platelet Estimate Clumped Platelets Plt Clumps, EDTA Large Platelets Giant Platelets Platelet Satelliting Plt Morphology Comment RBC Morphology Dimorphic RBCs Polychromasia Hypochromasia Poikilocytosis Anisocytosis Microcytosis Macrocytosis Spherocytes Pappenheimer Bodies Sickle Cells Target Cells Tear Drop Cells Ovalocytes Helmet Cells Broussard-Glenford Bodies [place] Rings [place] Cells Bite Cells Crenated Cell Elliptocytes Acanthocytes (Spur) Rouleaux Hemoglobin C Crystals Schistocytes Malaria parasites Raciel Bodies Hem Pathologist Commnt PT INR Sodium 141 Potassium 4.3 Chloride 99.6 Carbon Dioxide 26 Anion Gap 20 BUN 41 H Creatinine 2.1 H Estimated GFR 38 BUN/Creatinine Ratio 20 Glucose 114 H Calcium 9.4
[2017-09-11] MEDS: MINIPRESS PO SCH (12:01)
[2017-09-11] MEDS: NEURONTIN PO SCH (12:01)
[2017-09-11] MEDS: ZAROXOLYN PO SCH (12:01)
[2017-09-11] MEDS: PROSCAR PO SCH (12:01)
[2017-09-11] MEDS: TYLENOL PO SCH (12:01)
[2017-09-11] MEDS: PEPCID PO SCH (12:02)
[2017-09-11] MEDS: COREG PO SCH (12:02)
[2017-09-11] MEDS: ZYLOPRIM PO SCH (12:02)
--- NOTE | 2017-09-11 12:12 | Progress Note ---
Assessment and Plan - Patient Problems (1) CKD (chronic kidney disease) stage 3, GFR 30-59 ml/min Current Visit: No Status: Chronic Plan to address problem: non oliguric, renal function stable, Scr-2.1. S/P bilateral LE thrombolysis and mechanical thrombectomy-vascular surgery notes reviewed. Discussed with pt and Hospitalist . Edema improving, switch to oral diuretics. Needs outpt follow up for CKD (2) Myeloma Current Visit: Yes Status: Chronic Plan to address problem: followed by (3) DVT, bilateral lower limbs Current Visit: Yes Status: Acute (4) Chronic systolic CHF (congestive heart failure) Current Visit: Yes Status: Chronic (5) Hypertension Current Visit: No Status: Chronic Plan to address problem: BP under control. Continue present meds (6) Anemia in CKD (chronic kidney disease) Current Visit: Yes Status: Chronic (7) Edema Current Visit: Yes Status: Acute Subjective Date of service: 09/11/17 Principal diagnosis: DVT s/p EKOS , Severe CMP Interval history: alert, oriented, denies CP or SOB,anxious to go home Objective - Vital Signs Vital signs: Vital Signs - 12hr 09/11/17 09/11/17 09/11/17 00:37 05:17 08:33 Temperature 98.2 F 98.6 F 98.6 F Pulse Rate 90 79 74 Respiratory 18 18 20 Rate Blood Pressure 115/79 Blood Pressure 110/53 122/79 [Right] O2 Sat by Pulse 97 98 95 Oximetry - General Appearance General appearance: well-developed, obese EENT: mucous membranes moist Neck: no JVD Respiratory: Present: Clear to Ascultation Cardiology: regular Gastrointestinal: normoactive bowel sounds Neurologic: alert and oriented x3 Musculoskeletal: other (1+ edema) Psychiatric: mood/affect appropriate, cooperative - Lab 09/11/17 05:05 09/11/17 05:05 Most recent lab results Calcium 9.4 mg/dL (8.4-10.2) 09/11/17 05:05 Urine Creatinine 124.5 mg/dL (0.1-20.0) H 09/02/17 04:00 Ur Total Protein 24 Hr 918.00 (2-200) H 09/08/17 18:00 Urine Total Protein 34 mg/dL (5-11.8) H 09/08/17 18:00
--- NOTE | 2017-09-11 13:36 | Discharge Summary ---
Providers - Providers Date of Admission: 09/01/17 00:20 Attending physician: DERECK RAYMOND MD 09/01/17 02:29 Consult to Physician [CONS] Routine Consulting Provider: OLIVERIO FRIAS Reason For Exam: CHF exacerbation Place consult to:: [facility] Notified:: ANSWERING SERVICE Phone number called:: [phone] Was contact made?: Yes If yes, spoke with:: LEESA Time called:: 08:54 Comment:: CONSULT COMPLETED 09/01/17 02:30 Consult to Physician [CONS] Routine Consulting Provider: NELLI MUNOZ Reason For Exam: CKD Place consult to:: Nephrology Notified:: ANSWERING SERVICES Phone number called:: [phone] Was contact made?: Yes Time called:: 09:18 Comment:: CONSULT COMPLETED Consult to Physician [CONS] Routine Consulting Provider: KANNAN JOHSNON Reason For Exam: MM on chemo Place consult to:: Oncology Notified:: ANSWERING SERVICES Phone number called:: [phone] Was contact made?: Yes If yes, spoke with:: PAULA Time called:: 09:09 Comment:: CONSULT COMPLETED 09/01/17 17:23 Consult to Physician [CONS] Routine Consulting Provider: KANNAN JOHNSON Reason For Exam: dvt Place consult to:: DR. JOHNSON Notified:: ANSWRING SERVICES Phone number called:: [phone] Was contact made?: Yes If yes, spoke with:: RONY Time called:: 18:22 Comment:: CONSULT COMPLETED 09/01/17 17:25 Consult to Physician [CONS] Routine Consulting Provider: SHERI SOTO Reason For Exam: bilateral dvt Place consult to:: DR. SOTO Notified:: DR. SOTO Phone number called:: [phone] Was contact made?: Yes If yes, spoke with:: DR. SOTO Time called:: 18:31 Comment:: CONSULT COMPLETED 09/03/17 07:21 Physical Therapy Evaluation and Treat [CONS] Routine Comment: Reason For Exam: debility 09/04/17 09:38 Consult to Physician [CONS] Routine Consulting Provider: SHERWIN CRAFT Reason For Exam: CCU admit for Ekos catheter placement Place consult to:: [facility] Notified:: OFFICE Phone number called:: [phone] Was contact made?: Yes If yes, spoke with:: LAZARA Time called:: 10:45 Comment:: DR BELLA COVERING 09/11/17 11:11 Occupational Therapy Evaluate and Treat [CONS] Routine Comment: Reason For Exam: debility Physical Therapy Evaluation and Treat [CONS] Routine Comment: Reason For Exam: debitilty Primary care physician: SALEEM SANDOVAL Hospitalization Condition: Stable Hospital course: Chronic systolic heart failure - stable; no current clinical evidence of acutely decompensated HF CMP - EF 15-20% Bi-V AICD in situ Bilateral DVT H/o DVT s/p IVC filter CKD H/o multiple myeloma H/o TIA EFE Morbid obesity Plan: INR therapeutic this AM. Currently stable cardiac status. Pt may tx out of ICU to telemetry from cardiology standpoint. Await vascular recommendations. Nothing further to add from cardiac perspective. Will sign off. Please call with questions/concerns or for re-evaluation. Follow up in our [place] office with Dr. Frias on 09/17/2017 @ 2:30PM. The patient has been seen in conjunction with Dr. Ibarra who agrees with the assessment and plan of care. 1. MOJGAN/CKD 2. Bilateral acute DVT 3. Dilated CMP 4. Chronic systolic CHF 5. Obesity 6. EFE Rec: 1. Diuresis per renal 2. Coumadin 3. Weight loss 4. F/u with Dr. Lynn 1-2 weeks after d/c to have repeat sleep studies and obtain new CPAP machine 5. Can go home pulm-[place]; will sign off but please call with questions, or if new issues arise Plan of care reviewed with patient, he understands/agrees Patient to go home on Coumadin. Keep INR between 2 and 3. supportive care. To get physical therapy prior to discharge Subjective Date of service: 09/11/17 Interval history: Patient status post E Kos. Feels better. Trying to increase mobility. Still not able to walk he states on his own. Disposition: DC/[place]-06 HOME [facility] Time spent for discharge: 35 mins Core Measure Documentation - Palliative Care Palliative Care/ Comfort Measures: Not Applicable Exam - Constitutional Vitals: Temp Pulse Resp BP Pulse Ox 98.6 F 74 20 115/79 95 09/11/17 08:33 09/11/17 08:33 09/11/17 08:33 09/11/17 08:33 09/11/17 08:33 Plan Activity: advance as tolerated, fall precautions Diet: low cholesterol, low salt Special Instructions: record daily weights, record daily BP diary, physical therapy, occupational therapy, home health RN (wound managment) Additional Instructions: must have INR check in 2-3 days with PCP or cardiology office Follow up with: SALEEM SANDOVAL MD [Primary Care Provider] - 3-5 Days RICHARD GARCÍA MD [Staff Physician] - 3 Days OLIVERIO FRIAS MD [Staff Physician] - 09/17/17 RODRIGO RAY MD [Staff Physician] - 7 Days Forms: Warfarin Discharge Instruction Prescriptions: Albuterol Sulfate [Ventolin HFA] 2 puff IH Q4H PRN #1 pump PRN Reason: Shortness Of Breath Allopurinol 200 mg PO DAILY #30 Aspirin [Aspirin BABY CHEW TAB] 81 mg PO QDAY #30 tab.chew Carvedilol [Coreg] 12.5 mg PO BID #60 tablet Famotidine [Pepcid] 20 mg PO BID #60 tablet Finasteride [Proscar] 5 mg PO QDAY #30 tablet Furosemide [Lasix TAB] 40 mg PO BID #60 tablet Gabapentin [Neurontin] 300 mg PO BID #60 capsule Metolazone [Zaroxolyn] 5 mg PO QDAY #30 tablet oxyCODONE /ACETAMINOPHEN [Percocet 5/325 mg] 1 tab PO Q6H PRN #14 tablet PRN Reason: Moder Pain Unrelieved By Jewell Prazosin [Minipress] 1 mg PO Q12HR #60 capsule Warfarin [Coumadin] 5 mg PO DAILY@1700 #30 tablet
--- NOTE | 2017-09-11 14:22 | Operative Report ---
Operative Report Operative Report: Procedure: 1. Intravascular ultrasound of the distal inferior vena cava 2. Intravascular ultrasound of the right common iliac, right external iliac, right common femoral, and right superficial femoral veins. 3. Intravascular ultrasound of the left common iliac, left external iliac, left common femoral, and left superficial femoral veins 4. Right iliac and femoral venography with dilute contrast 5. Left iliac and femoral venography with dilute contrast 6. Balloon angioplasty of the right common iliac, right external iliac, right common femoral, and right superficial femoral veins. 7. Balloon angioplasty of the left common iliac, left external iliac, left common femoral, and left superficial femoral veins 8. Mechanical thrombectomy of both lower extremity veins spanning the IVC to the distal superficial femoral vein with an 8 [place] AngioJet device Date of Procedure: 09/05/2017 History/Indication: 71-year-old male with bilateral extensive deep vein thrombosis, had thrombolytic catheter placed yesterday Physician: Gomez Oh MD Technique/Procedural Details: The patient was placed in the prone position and prepped and draped in the usual sterile fashion. A timeout was performed. Local anesthetic was administered around the indwelling sheaths. Each indwelling sheath was exchanged for a 10 [place] vascular sheath over an 035 wire. An intravascular ultrasound catheter was advanced into the right superficial femoral vein, and sonographic evaluation of the right superficial femoral vein up to the IVC was performed. Permanent images were acquired. A similar sequence of steps was performed for the left side. Thereafter, an 8 [place] AngioJet device was advanced into the right superficial femoral artery, and mechanical/aspiration thrombectomy of the right superficial femoral vein up to the IVC was performed. This was then repeated on the left side. A small amount of dilute contrast was then injected into the right sided sheath to evaluate for degree of patency fluoroscopically. This was then done on the left side. Thereafter, balloon with the neuroplasty spanning the IVC to the distal right superficial femoral vein was performed, and the same was then performed on the left side. Final intravascular sonographic evaluation of both lower extremities was performed. Both sheaths were then removed and hemostasis was achieved with manual pressure. Discussion: Intravascular ultrasound after pharmacologic and mechanical/aspiration thrombectomy demonstrates reasonable patency of the distal IVC, bilateral common iliac veins, both external veins, and both common femoral veins. While there is still a moderate degree of thrombus remaining in both the superficial femoral veins, there was easy aspiration of blood from the entirety of both superficial veins during catheter pulled back, without evidence of aspirated clot. This indicates the presence of at least a patent channel through both of these vein systems. Specimen: None EBL: <5 cc
[2017-09-11] MEDS: COUMADIN PO SCH ×2 (17:49)
[2017-09-11 18:21] VITALS: BP 101/70
== END 2017-09-11 18:45 | disposition home health service (06) | DRG 270 ==
LOC: ED 21:23 → 4A 09-01 00:20 → CC1 09-04 19:43 → 4A 09-07 13:57
PROVIDERS: ADMIT Internal Medicine; ATTEND Internal Medicine
PROC: B51D1ZA Fluoroscopy of Bilateral Lower Extremity Veins using Low Osmolar Contrast, Guidance (ICD-10-PCS; 2017-09-04)
PROC: B5191ZZ Fluoroscopy of Inferior Vena Cava using Low Osmolar Contrast (ICD-10-PCS; 2017-09-04)
PROC: 3E03317 Introduction of Other Thrombolytic into Peripheral Vein, Percutaneous Approach (ICD-10-PCS; 2017-09-04)
PROC: 3E033GC Introduction of Other Therapeutic Substance into Peripheral Vein, Percutaneous Approach (ICD-10-PCS; 2017-09-04)
PROC: 06H033Z Insertion of Infusion Device into Inferior Vena Cava, Percutaneous Approach (ICD-10-PCS; 2017-09-04)
PROC: B549ZZA Ultrasonography of Inferior Vena Cava, Guidance (ICD-10-PCS; 2017-09-04)
PROC: 06CN3ZZ Extirpation of Matter from Left Femoral Vein, Percutaneous Approach (ICD-10-PCS; principal; 2017-09-05)
PROC: 067D3ZZ Dilation of Left Common Iliac Vein, Percutaneous Approach (ICD-10-PCS; 2017-09-05)
PROC: 067G3ZZ Dilation of Left External Iliac Vein, Percutaneous Approach (ICD-10-PCS; 2017-09-05)
PROC: 067N3ZZ Dilation of Left Femoral Vein, Percutaneous Approach (ICD-10-PCS; 2017-09-05)
PROC: 067C3ZZ Dilation of Right Common Iliac Vein, Percutaneous Approach (ICD-10-PCS; 2017-09-05)
PROC: 067F3ZZ Dilation of Right External Iliac Vein, Percutaneous Approach (ICD-10-PCS; 2017-09-05)
PROC: 067M3ZZ Dilation of Right Femoral Vein, Percutaneous Approach (ICD-10-PCS; 2017-09-05)
PROC: 06CM3ZZ Extirpation of Matter from Right Femoral Vein, Percutaneous Approach (ICD-10-PCS; 2017-09-05)
PROC: 06C03ZZ Extirpation of Matter from Inferior Vena Cava, Percutaneous Approach (ICD-10-PCS; 2017-09-05)
PROC: B51D1ZZ Fluoroscopy of Bilateral Lower Extremity Veins using Low Osmolar Contrast (ICD-10-PCS; 2017-09-05)
DX: I82.423 Acute embolism and thrombosis of iliac vein, bilateral (principal); I50.23 Acute on chronic systolic (congestive) heart failure; I42.0 Dilated cardiomyopathy; N17.9 Acute kidney failure, unspecified; C90.00 Multiple myeloma not having achieved remission; I13.0 Hypertensive heart and chronic kidney disease with heart failure and stage 1 through stage 4 chronic kidney disease, or unspecified chronic kidney disease; N18.3 Chronic kidney disease, stage 3 (moderate); G47.33 Obstructive sleep apnea (adult) (pediatric); E87.5 Hyperkalemia; E66.01 Morbid (severe) obesity due to excess calories; M19.90 Unspecified osteoarthritis, unspecified site; Z86.73 Personal history of transient ischemic attack (TIA), and cerebral infarction without residual deficits; Z68.39 Body mass index [BMI] 39.0-39.9, adult; I25.2 Old myocardial infarction; Z90.49 Acquired absence of other specified parts of digestive tract; Z79.82 Long term (current) use of aspirin; Z79.899 Other long term (current) drug therapy; Z95.810 Presence of automatic (implantable) cardiac defibrillator; Z80.9 Family history of malignant neoplasm, unspecified; Z82.49 Family history of ischemic heart disease and other diseases of the circulatory system; Z91.19 Patient's noncompliance with other medical treatment and regimen
CPT/HCPCS: 36415; 37187; 37212; 37214; 37248; 37249; 37252; 37253; 71045; 71250; 74018; 74176; 75822; 78582; 80048; 80053; 80061; 81001; 82565; 82570; 82575; 83880; 84156; 84484; 85007; 85014; 85018; 85025; 85049; 85384; 85520; 85610; 85730; 87040; 93005; 93010; 93306; 93970; 93979; 96365; 96366; 96368; 96374; 96375; 99285; A9540; A9558; C1725; C1753; C1757; C1769; C1887; C1894; J0690; J1170; J1644; J1940; J2250; J2270; J2997; J3010; J7030; J7050; P9047; Q9967